=== PATIENT | female | born 1935 | race Caucasian/White ===

== ENCOUNTER 2017-03-18 11:49 | Inpatient (IN) | payer MEDICARE, MEDICAID ==
[2017-03-18] VITALS (10 sets, daily range): BP systolic 108–170; BP diastolic 53–92; PULSE 60–115; RESP 13–36; TEMP 97.6–98.9; O2SAT 87–100
[~2017-03-18] VITALS: Ht 152.4 cm; Wt 61.1 kg
[~2017-03-18 11:49] MED LIST: ALBU0.086 INH; BUDE.5I INH; CALC200S; CALC500T19 PO; CENTRAL VITE; DUONSOL2 NEB; FERR324T4 PO; FURO20TA PO; GLIP5 PO; HYDR-3580 PO; PRIL20CA PO; SIMV10TA OR; TYLE500T PO; Z.0.OXYGEN INH; multivitamins
[2017-03-18] MEDS ORDERED: FUROSEMIDE 100 MG/10 ML VIAL IVP ONE (12:00)
[2017-03-18] MEDS ORDERED: SODIUM CHLORIDE 0.9% FLUSH 10 ML FLUSH IVF PRN (12:00)
--- NOTE | 2017-03-18 12:07 | PD ---
HPI Chief Complaint: Respiratory Distress Time Seen by Provider: 11:58 Travel History International Travel<30 days: No Contact w/Intl Traveler<30days: No Traveled to known affect area: No History of Present Illness HPI This is an 82-year-old female with a history of COPD, CHF, diabetes numbness, hypertension, who presents today with complaint of shortness of breath since yesterday. Patient states that last night she was starting to have shortness of breath however this morning it became much more severe. She denies any chest pain, chest pressure. She reports the shortness of breath has gotten worse despite nebulizer treatments. Niece is at the bedside reports that she was recently being treated for fluid in her lungs. He reports that they changed her Lasix to double the dose at that time. The patient has been intubated 2 times previously. There are no other complaints at the time of my examination. PFSH Past Medical History Arthritis: Yes Asthma: Yes Autoimmune Disease: No Blood Disorders: No Cancer: No Cardiovascular Problems: Yes Congestive Heart Failure: Yes COPD: Yes Cerebrovascular Accident: No Coronary Artery Disease: Yes Dementia: Yes Diabetes: Yes (TYPE II ) Diminished Hearing: No Endocrine: Yes Gastrointestinal Disorders: Yes GERD: Yes Glaucoma: No Genitourinary: No Headaches: No Hepatitis: No Hiatal Hernia: No Immune Disorder: No Implanted Vascular Access Dvce: Yes Kidney Stones: No Musculoskeletal: Yes (OSTEROPOROSIS) Neurologic: No Psychiatric: No Reproductive: No Respiratory: Yes (COPD) Migraines: No Seizures: No Sleep Apnea: No Ulcer: No PNEUMOCCOCAL Vaccine (Year): 1997 ?: Not Menopausal: Yes Past Surgical History Abdominal Surgery: No Appendectomy: No Cardiac Surgery: No Ear Surgery: No Endocrine Surgery: No Eye Surgery: No Genitourinary Surgery: No Gynecologic Surgery: No Joint Replacement: Yes Oral Surgery: No Pacemaker: No Thoracic Surgery: No Other Surgery: Yes (2 HIP REPLACEMENTS 2002) Social History Alcohol Use: No Tobacco Use: No Substance Use: No Allergies-Medications (Allergen,Severity, Reaction): Coded Allergies: cephalexin (Unverified Allergy, Intermediate, Anaphylaxis, 03/18/17) Reported Meds & Prescriptions Reported Meds & Active Scripts Active Reported Potassium Chloride ER (Potassium Chloride) 10 Meq Cap 10 Meq PO DAILY Tylenol (Acetaminophen) 325 Mg Tab 500 Mg PO Q6H PRN Senna Plus 8.6-50 mg (Sennosides-Docusate Sodium) 8.6 Mg-50 Mg Tab Prednisone 5 Mg Tab 5 Mg PO DAILY Ferrous Sulfate 325 Mg (65 Mg Iron) Tablet 325 Mg PO TIDPC Repaglinide 2 Mg Tab 2 Mg PO TIDAC Omeprazole 20 Mg Tab 20 Mg PO DAILY Lasix (Furosemide) 20 Mg Tab 20 Mg PO DAILY Lasix (Furosemide) 40 Mg Tab 40 Mg PO DAILY Symbicort Inh (Budesonide/Formoterol Fumarate) 160-4.5 Mcg/Act Aero 1 Puff INH Q12HR Simvastatin 40 Mg Tab 40 Mg PO HS Glipizide 5 Mg Tab 5 Mg PO DAILY Take 30 minutes before a meal Calcium 500 +D (Calcium Carbonate-Cholecalciferol) 500-400 Mg-Unit Tab 1 Tab PO TID Cts-Mqhnfv-Yikpz (Multivitamin) 1 Each Tablet Review of Systems Except as stated in HPI: all other systems reviewed are Neg General / Constitutional: No: Fever, Chills HENT: No: Headaches, Neck Pain Cardiovascular: Positive: Tachycardia, No: Chest Pain or Discomfort, Palpitations Respiratory: Positive: Shortness of Breath, Wheezing, No: Cough Gastrointestinal: No: Nausea, Vomiting Genitourinary: No: Dysuria, Decreased Urinary Output Musculoskeletal: Positive: Edema, No: Weakness, Pain Neurologic: No: Weakness, Dizziness, Headache Physical Exam Narrative GENERAL: Well-developed well-nourished female in moderate to severe respiratory distress. SKIN: Focused skin assessment warm/dry. HEAD: Atraumatic. Normocephalic. EYES: No scleral icterus. No injection or drainage. ENT: No nasal bleeding or discharge. Mucous membranes pink and moist. NECK: Trachea midline. Supple. CARDIOVASCULAR: Tachycardic with a rate of 109. He goes as high as 120.. No murmur appreciated. RESPIRATORY: Coarse Rales and rhonchi bilaterally. GASTROINTESTINAL: Abdomen soft, non-tender, nondistended. MUSCULOSKELETAL: No obvious deformities. No clubbing. No cyanosis. Trace edema bilateral lower extremities NEUROLOGICAL: Awake and alert. Fragmented speech secondary to shortness of breath. No obvious cranial nerve deficits. Motor grossly within normal limits. Normal speech. PSYCHIATRIC: Appropriate mood and affect; insight and judgment normal. Data Data Last Documented VS Vital Signs Date Time Temp Pulse Resp B/P (MAP) Pulse Ox O2 Delivery O2 Flow Rate FiO2 03/18/17 15:30 98 BiPAP 2.00 30 03/18/17 12:01 03/18/17 11:51 98.9 115 36 Orders Orders Complete Blood Count With Diff (03/18/17 11:58) Comprehensive Metabolic Panel (03/18/17 11:58) B-Type Natriuretic Peptide (03/18/17 11:58) Act Partial Throm Time (Ptt) (03/18/17 11:58) Prothrombin Time / Inr (Pt) (03/18/17 11:58) Ckmb (Isoenzyme) Profile (03/18/17 11:58) Troponin I (03/18/17 11:58) Arterial Blood Gas (Abg) (03/18/17 11:58) Urinalysis - C+S If Indicated (03/18/17 11:58) Influenzae A/B Antigen (03/18/17 11:58) Iv Access Insert/Monitor (03/18/17 11:58) Electrocardiogram (03/18/17 11:58) Ecg Monitoring (03/18/17 11:58) Oximetry (03/18/17 11:58) Oxygen Administration (03/18/17 11:58) Chest, Single Ap (03/18/17 11:58) Sodium Chloride 0.9% Flush (Ns Flush) (03/18/17 12:00) Furosemide Inj (Lasix Inj) (03/18/17 12:00) CKMB (03/18/17 12:10) CKMB% (03/18/17 12:10) Vancomycin Inj (Vancomycin Inj) (03/18/17 14:37) Aztreonam Inj (Azactam Inj) (03/18/17 14:37) Metronidazole 500 Mg Inj (Flagyl 500 Mg (03/18/17 14:37) Blood Culture (03/18/17 14:59) Admit To Inpatient (03/18/17 ) Code Status (03/18/17 15:25) Vital Signs (Adult) ALBERTO.Q1H (03/18/17 15:25) Activity Bed Rest (03/18/17 15:25) Elevate Head Of Bed (03/18/17 15:25) Intake + Output Q4H (03/18/17 15:25) Diet Npo (03/18/17 Dinner) Sodium Chloride 0.9% Flush (Ns Flush) (03/18/17 15:30) Sodium Chloride 0.9% Flush (Ns Flush) (03/18/17 21:00) Acetaminophen (Tylenol) (03/18/17 15:30) Famotidine Inj (Pepcid Inj) (03/18/17 21:00) Famotidine (Pepcid) (03/18/17 21:00) Ondansetron Inj (Zofran Inj) (03/18/17 15:30) Albuterol-Ipratropium Neb (Duoneb Neb) (03/18/17 16:00) Albuterol Neb (Albuterol Neb) (03/18/17 15:30) Complete Blood Count With Diff (03/19/17 04:00) Basic Metabolic Panel (Bmp) (03/19/17 04:00) Magnesium (Mg) (03/19/17 04:00) Phosphorus (Po4) (03/19/17 04:00) Chest, Single Ap (03/19/17 ) Electrocardiogram (03/18/17 15:25) Electrocardiogram (03/18/17 21:25) Power Transformer Repairer / Telemetry ALBERTO.Q8H (03/18/17 15:25) ^ Initiate Protocol (03/18/17 15:25) Instruction (03/18/17 15:25) [facility] [place] Nursing Information (03/18/17 15:30) Chlorhexidine 2% Cloth (Chlorhexidine 2% (03/19/17 04:00) Chlorhexidine 2% Cloth (Chlorhexidine 2% (03/18/17 15:30) Mrsa Pcr Surveillance (03/18/17 15:25) Docusate Sodium-Senna (Divina-Colace) (03/18/17 21:00) Magnesium Hydroxide Liq (Milk Of Magnesi (03/18/17 15:30) Sennosides (Senokot) (03/18/17 15:30) Bisacodyl Supp (Dulcolax Supp) (03/18/17 15:30) Lactulose Liq (Lactulose Liq) (03/18/17 15:30) Inpatient Certification (03/18/17 ) Enoxaparin Inj (Lovenox Inj) (03/18/17 16:00) Us Leg Venous Doppler Bilat (03/18/17 ) Troponin I (03/18/17 18:00) Troponin I (03/19/17 00:00) Methylprednisolone So Succ Inj (Solumedr (03/18/17 16:00) Resp Bipap / Cpap Non Invas Vt (03/18/17 ) Admit Order (Ed Use Only) (03/18/17 15:36) Bedside Glucose ALBERTO.CSUGAR (03/18/17 15:37) Bedside Glucose . DIRECTED (03/18/17 15:37) Blood Glucose Goal (Criteria) (03/18/17 15:37) Hypoglycemia 70 Mg/Dl Or < (03/18/17 15:37) Notify Dr: Other (03/18/17 15:37) Dextrose 50% In Mark (Vial) Inj (D50w (Vi (03/18/17 15:45) Glucagon Inj (Glucagon Inj) (03/18/17 15:45) Insulin Aspart Supplemtl Scale (Novolog (03/18/17 17:00) ^ Medication Admin Instruction (03/18/17 15:37) Notify Dr: Other (03/18/17 15:37) Labs Laboratory Tests Test 03/18/17 11:55 03/18/17 12:10 03/18/17 12:50 03/18/17 13:00 Blood Gas Puncture Site RT RADIAL Blood Gas Patient Temperature 98.6 Blood Gas HCO3 29 mmol/L Blood Gas Base Excess 4.2 mmol/L Blood Gas Oxygen Saturation 96 % Arterial Blood pH 7.39 Arterial Blood Partial Pressure CO2 49 mmHg Arterial Blood Partial Pressure O2 95 mmHG Arterial Blood Oxygen Content 16.7 Vol % Arterial Blood Carboxyhemoglobin 1.3 % Arterial Blood Methemoglobin 0.7 % Blood Gas Hemoglobin 12.4 G/DL Oxygen Delivery Device NASAL CANNULA Blood Gas Liter Flow 2 L/M White Blood Count 19.9 TH/MM3 Red Blood Count 4.01 MIL/MM3 Hemoglobin 12.9 GM/DL Hematocrit 39.5 % Mean Corpuscular Volume 98.7 FL Mean Corpuscular Hemoglobin 32.2 PG Mean Corpuscular Hemoglobin Concent 32.6 % Red Cell Distribution Width 13.7 % Platelet Count 200 TH/MM3 Mean Platelet Volume 8.7 FL Neutrophils (%) (Auto) 92.5 % Lymphocytes (%) (Auto) 2.1 % Monocytes (%) (Auto) 5.2 % Eosinophils (%) (Auto) 0.0 % Basophils (%) (Auto) 0.2 % Neutrophils # (Auto) 18.4 TH/MM3 Lymphocytes # (Auto) 0.4 TH/MM3 Monocytes # (Auto) 1.0 TH/MM3 Eosinophils # (Auto) 0.0 TH/MM3 Basophils # (Auto) 0.0 TH/MM3 CBC Comment AUTO DIFF Differential Total Cells Counted 100 Neutrophils % (Manual) 72 % Band Neutrophils % 24 % Lymphocytes % 2 % Monocytes % 2 % Neutrophils # (Manual) 19.1 TH/MM3 Differential Comment FINAL DIFF MANUAL Platelet Estimate NORMAL Platelet Morphology Comment NORMAL Red Cell Morphology Comment NORMAL Blood Urea Nitrogen 22 MG/DL Creatinine 1.13 MG/DL Random Glucose 279 MG/DL Total Protein 8.0 GM/DL Albumin 3.7 GM/DL Calcium Level 9.7 MG/DL Alkaline Phosphatase 71 U/L Aspartate Amino Transf (AST/SGOT) 27 U/L Alanine Aminotransferase (ALT/SGPT) 24 U/L Total Bilirubin 0.6 MG/DL Sodium Level 134 MEQ/L Potassium Level 5.1 MEQ/L Chloride Level 97 MEQ/L Carbon Dioxide Level 29.9 MEQ/L Anion Gap 7 MEQ/L Estimat Glomerular Filtration Rate 46 ML/MIN Total Creatine Kinase 124 U/L Creatine Kinase MB 1.3 NG/ML Troponin I 0.02 NG/ML B-Type Natriuretic Peptide 47 PG/ML Urine Color LIGHT-YELLOW Urine Turbidity CLEAR Urine pH 6.5 Urine Specific Gilson 1.007 Urine Protein NEG mg/dL Urine Glucose (UA) 300 mg/dL Urine Ketones NEG mg/dL Urine Occult Blood NEG Urine Nitrite NEG Urine Bilirubin NEG Urine Urobilinogen LESS THAN 2.0 MG/DL Urine Leukocyte Esterase NEG Urine RBC LESS THAN 1 /hpf Urine WBC 1 /hpf Urine Squamous Epithelial Cells 1 /hpf Urine Bacteria OCC /hpf Urine Hyaline Casts 1 /lpf Urine Mucus FEW /lpf Microscopic Urinalysis Comment CULT NOT INDICATED MDM Medical Decision Making Medical Screen Exam Complete: Yes Emergency Medical Condition: Yes Differential Diagnosis CHF exacerbation versus COPD exacerbation versus ACS Narrative Course This is an 82-year-old female history of COPD, CHF, diabetes nose, presents here today with shortness of breath is progressively worse. The patient recently had fluid on her lungs and was placed on Lasix. She also had her Lasix doubled. Patient has gurgling lung sounds with coarse rhonchi and Rales bilaterally. The patient's O2 sat on room air was in the 80s. She was started on CPAP here in the emergency department. She was also given 60 mg of Lasix. She is put out 2 large urine episodes. The patient appears very frail and tachypnea area and she was noted to have a white blood cell count of 19,000. She's been started on the unknown source of sepsis antibiotics. She'll be admitted to the intensive care unit. The case was discussed with Dr. Jama, who is gracious enough to come down and see the patient and written admission orders. Critical Care Narrative Aggregate critical care time was 45 minutes. Time to perform other separately billable procedures was not included in the critical care time. My time did not include minutes spent treating any other patients simultaneously or on activities that did not directly contribute to the patient's treatment. The services I provided to this patient were to treat and/or prevent clinically significant deterioration that could result in: I provided critical care services requiring my management, as noted below: Chart data review, documentation time, medication orders and management, vital sign assessments/reviewing monitor data, ordering and reviewing lab tests, ordering and interpreting/reviewing x-rays and diagnostic studies, care of the patient and discussion of the patient with the admitting physicians. Sepsis Criteria SIRS Criteria (2 or more): Heart rate over 90, RR > 20 or PaCO2 < 32, WBC > 06720, < 4000 or > 10% bands Sepsis Criteria (SIRS+source): Infect source susp/known Diagnosis Primary Impression: Respiratory distress Additional Impressions: CHF (congestive heart failure) COPD (chronic obstructive pulmonary disease) Pneumonia Leukocytosis Sepsis Admitting Information Admitting Physician Requests: Admit Bg Aragon MD Mar 18, 2017 12:07
[2017-03-18] MEDS ORDERED: SENN1TAB (12:31)
[2017-03-18] MEDS ORDERED: MULTTAB68 (12:31)
[2017-03-18] MEDS ORDERED: REPA1TAB10 PO (12:31)
[2017-03-18] MEDS ORDERED: FURO1TAB62 PO (12:31)
[2017-03-18] MEDS ORDERED: POTA10CA PO (12:31)
[2017-03-18] MEDS ORDERED: OMEP20TA93 PO (12:31)
[2017-03-18] MEDS ORDERED: SYMB160A INH (12:31)
[2017-03-18] MEDS ORDERED: FERR325T18 PO (12:31)
[2017-03-18] MEDS ORDERED: TYLE325T PO (12:31)
[2017-03-18] MEDS ORDERED: GLIP5TAB8 PO (12:31)
[2017-03-18] MEDS ORDERED: FURO1TAB60 PO (12:31)
[2017-03-18] MEDS ORDERED: SIMV40TA PO (12:31)
[2017-03-18] MEDS ORDERED: PRED5TAB PO (12:31)
[2017-03-18] MEDS ORDERED: CALC1TAB12 PO (12:31)
[2017-03-18 12:35] LABS: AUTOMATED NEUTROPHIL # 18.4 TH/MM3 (1.8-7.7); BASOPHIL % 0.2 % (0.0-2.0); HEMATOCRIT 39.5 % (35.0-46.0); HEMOGLOBIN 12.9 GM/DL (11.6-15.3); LYMPH % 2.1 % (9.0-44.0); LYMPHOCYTE # 0.4 TH/MM3 (1.0-4.8); MEAN CELL VOLUME 98.7 FL (80.0-100.0); MEAN CORPUSCULAR HEMOGLOBIN 32.2 PG (27.0-34.0); MEAN CORPUSCULAR HGB CONC 32.6 % (32.0-36.0); MEAN PLATELET VOLUME 8.7 FL (7.0-11.0); MONO % 5.2 % (0.0-8.0); NEUT % 92.5 % (16.0-70.0); PLATELET COUNT 200 TH/MM3 (150-450); RED BLOOD COUNT 4.01 MIL/MM3 (4.00-5.30); RED CELL DISTRIBUTION WIDTH 13.7 % (11.6-17.2); WHITE BLOOD COUNT 19.9 TH/MM3 (4.0-11.0)
[2017-03-18 12:53] LABS: ALBUMIN 3.7 GM/DL (3.4-5.0); AST (GOT) 27 U/L (15-37); BICARBONATE 29.9 MEQ/L (21.0-32.0); BLOOD UREA NITROGEN 22 MG/DL (7-18); CALCIUM 9.7 MG/DL (8.5-10.1); CHLORIDE 97 MEQ/L (98-107); CREATININE 1.13 MG/DL (0.50-1.00); GLOMERULAR FILTRATION RATE 46 ML/MIN (>89); GLUCOSE,RANDOM 279 MG/DL (74-106); SODIUM (NA) 134 MEQ/L (136-145)
[2017-03-18 12:55] LABS: ALKALINE PHOSPHATASE 71 U/L (45-117); ALT (GPT) 24 U/L (10-53); TOTAL BILIRUBIN ADULT 0.6 MG/DL (0.2-1.0); TROPONIN I 0.02 NG/ML (0.02-0.05)
[2017-03-18 13:03] LABS: BANDS 24 % (0-6); LYMPHOCYTES 2 % (9-44); MONOCYTES 2 % (0-8); NEUTROPHIL # MANUAL DIFF 19.1 TH/MM3 (1.8-7.7); POLYS (SEG NEUTROPHILS) 72 % (16-70)
--- NOTE | 2017-03-18 13:06 | RADRPT ---
EXAM DATE/TIME: 03/18/2017 12:12 [facility] COMPARISON: CHEST SINGLE AP, June 15, 2014, 1:14. INDICATIONS : Shortness of breath. MEDICAL HISTORY : Chronic obstructive pulmonary disease. Congestive heart failure. Gastroesophageal reflux disease. Diabetes. Asthma. SURGICAL HISTORY : Bilateral hip replacements. ENCOUNTER: Initial ACUITY: 2 days PAIN SCORE: Non-responsive. LOCATION: Bilateral chest FINDINGS: The heart size is normal. There is increased density in the perihilar regions. There is also increase d density at the medial left base. These findings were present on a prior chest x-ray from 2014. No e ffusion is seen. This chronic change at the right humeral head and shoulder region. CONCLUSION: No definite acute abnormality is seen. The persistent prominent perihilar densities and density in th e medial left base. Bhavesh Goldberg MD on March 18, 2017 at 13:03 Board Certified Radiologist. This report was verified electronically.
[2017-03-18 13:41] LABS: BACTERIA, URINE OCC /hpf; BILIRUBIN, URINE NEG (NEG); BLOOD, URINE NEG (NEG); GLUCOSE,URINE 300 mg/dL (NEG); HYALINE CAST, URINE 1 /lpf (RARE); KETONE, URINE NEG (NEG); MUCUS URINE FEW /lpf (OCC); NITRITE,URINE NEG (NEG); PH, URINE 6.5 (5.0-8.5); SQUAMOUS EPITHELIAL CELL URINE 1 /hpf (0-5); URINE COLOR LIGHT-YELLOW (YELLW/STRAW); URINE LEUKOCYTE ESTERASE NEG (NEG)
[2017-03-18] MEDS ORDERED: AZTREONAM INJ 2,000 MG in SODIUM CHLORIDE 0.9% INJ 100 ML IV STA (14:37)
[2017-03-18] MEDS ORDERED: metroNIDAZOLE 500 MG INJ 100 ML IV STA (14:37)
[2017-03-18] MEDS ORDERED: VANCOMYCIN INJ 1,000 MG in SODIUM CHLOR 0.9% 250 ML INJ 250 ML IV STA (14:37)
--- NOTE | 2017-03-18 15:26 | HHI.HP ---
[facility] Service Critical Care Medicine Primary Care Physician Chaitanya Cardenas MD Admission Diagnosis Diagnosis: Travel History International Travel<30 Days: No Contact w/Intl Traveler <30 Da: No Traveled to Known Affected Are: No History of Present Illness Date of admission 03/18/17 82-year-old [place] female with past medical history of COPD on chronic prednisone 5 mg daily, CHF, diabetes, hyperlipidemia, iron deficiency anemia. She has resided in an NURSING HOME for 20 years. She presents to [facility] emergency department due to shortness of breath that initially started the evening of 03/16. When her niece came to visit her today her breathing had worsened and EVAC was called. Sats were in the mid 80s on room air upon E VAC arrival. She had bilateral Rales and wheezing on arrival and was given Lasix 60 mg IV and placed on BiPAP 10/5 50% per the ED physician. She was also administered aztreonam, vancomycin, Flagyl. She has voided twice in the ED and put out 600 mL. She has had a nonproductive cough. She denies fever. She was not febrile on arrival. Denies chest pain. Her white blood cell count is 19. Chest x-ray shows some perihilar infiltrates. These have been present in the past on x-ray in 2015. She had some respiratory issues around and has been on increased Lasix dosing since then per Dr. Cardenas. Her creatinine is increased to 1.13 compared with her prior baseline of 0.8 from 2015. Her BNP is 47. Patient states her bowel movements have been normal. She has some redness of her left lower extremity and has been treated for cellulitis there in the past but states this is improved compared to usual. .Her niece states she has been intubated in the past on 2 occasions and the last intubation resulted in prolonged weaning. Patient states she is agreeable to intubation if needed. Her niece is reportedly her healthcare surrogate. She has no recent travel, recent surgeries, history of venous thromboembolic disease or known malignancy. Review of Systems Constitutional: DENIES: Diaphoretic episodes, Fever, Weight loss Respiratory: COMPLAINS OF: Cough, Wheezing, Shortness of breath, DENIES: Sputum production Cardiovascular: DENIES: Syncope Gastrointestinal: DENIES: Abdominal pain, Bloody stools, Constipation, Diarrhea , Nausea, Vomiting Musculoskeletal: COMPLAINS OF: Joint pain, Stiffness Immunologic/allergic: DENIES: Eczema Past Family Social History Allergies: Coded Allergies: cephalexin (Unverified Allergy, Intermediate, Anaphylaxis, 03/18/17) Past Medical History Intellectual disability CHF diagnosed in 2007 Negative cath in 2010 COPD Diabetes Hypertension Hyperlipidemia Iron deficiency anemia Obesity GERD On chronic steroids per Dr. Kasper with pulmonology Intubated twice in the past. One of these episodes was in May 2010. Past Surgical History I&D and ORIF open right distal humerus fracture 06/16/14 (Dr. Carter Jimenez) I&D open right distal humerus fracture 06/15/14 Dr. Smith Left total hip arthroplasty 08/19/2003 Dr. Wilder Right total hip arthroplasty 04/29/2003 Dr. Aponte Cement spacers L2 and L5 following L2 and L4 fracture Dr. Wilder Left elbow I&D 06/15/14 Cardiac catheterization 06/03/10normal coronariesby Dr. Shawna Corona Bilateral cataract surgery Reported Medications Ferrous sulfate 325 mill grams by mouth 3 times a day Simvastatin 40 g by mouth daily at bedtime Acetaminophen 500 mg by mouth every 6 hours as needed for pain Calcium carbonate I've 100 mg by mouth 3 times a day Potassium chloride 10 mEq by mouth daily Lasix 40 mg by mouth / 20 mg by mouth Symbicort 160/4.51 puff inhaled every 12 hours Senna/Docusate Omeprazole 20 mill grams by mouth daily Prednisone 5 mill grams by mouth daily REpaglinide 2 mg by mouth 3 times a day Glipizide 5 mill grams by mouth daily Multivitamin daily Family History Mother of myocardial infarction in her 70s Father of myocardial infarction his 70s Social History Lifetime nonsmoker. 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 SKIN: Warm and dry, well perfused. See extremity exam as per below. HEAD: Atraumatic. Normocephalic. EYES: Right pupil 6 mm, irregular and nonreactive. Left pupil 4 mm reactive.. No scleral icterus. No injection or drainage. ENT: BiPAP mask in place. NECK: Trachea midline. No JVD. CARDIOVASCULAR: Tachycardic, regular, no murmurs rubs or gallops. RESPIRATORY: Rales present in right base. Bilateral expiratory wheezes throughout GASTROINTESTINAL: Abdomen soft, non-tender, nondistended. Bowel sounds present. MUSCULOSKELETAL: Extremities without clubbing, cyanosis. 1+ edema of feet and lower extremities. No posterior leg tenderness, negative Homans. There is some redness of distal right leg but reportedly this is relatively chronic and better than usual. Deformities fingers bilat. NEUROLOGICAL: Awake and alert. No obvious cranial nerve deficits. Moves all extremities equally and to command Laboratory Laboratory Tests Test 03/18/17 11:55 03/18/17 12:10 03/18/17 12:50 03/18/17 13:00 Blood Gas Puncture Site RT RADIAL Blood Gas Patient Temperature 98.6 Blood Gas HCO3 29 Blood Gas Base Excess 4.2 Blood Gas Oxygen Saturation 96 Arterial Blood pH 7.39 Arterial Blood Partial Pressure CO2 49 Arterial Blood Partial Pressure O2 95 Arterial Blood Oxygen Content 16.7 Arterial Blood Carboxyhemoglobin 1.3 Arterial Blood Methemoglobin 0.7 Blood Gas Hemoglobin 12.4 Oxygen Delivery Device NASAL CANNULA Blood Gas Liter Flow 2 White Blood Count 19.9 Red Blood Count 4.01 Hemoglobin 12.9 Hematocrit 39.5 Mean Corpuscular Volume 98.7 Mean Corpuscular Hemoglobin 32.2 Mean Corpuscular Hemoglobin Concent 32.6 Red Cell Distribution Width 13.7 Platelet Count 200 Mean Platelet Volume 8.7 Neutrophils (%) (Auto) 92.5 Lymphocytes (%) (Auto) 2.1 Monocytes (%) (Auto) 5.2 Eosinophils (%) (Auto) 0.0 Basophils (%) (Auto) 0.2 Neutrophils # (Auto) 18.4 Lymphocytes # (Auto) 0.4 Monocytes # (Auto) 1.0 Eosinophils # (Auto) 0.0 Basophils # (Auto) 0.0 CBC Comment AUTO DIFF Differential Total Cells Counted 100 Neutrophils % (Manual) 72 Band Neutrophils % 24 Lymphocytes % 2 Monocytes % 2 Neutrophils # (Manual) 19.1 Differential Comment FINAL DIFF MANUAL Platelet Estimate NORMAL Platelet Morphology Comment NORMAL Red Cell Morphology Comment NORMAL Blood Urea Nitrogen 22 Creatinine 1.13 Random Glucose 279 Total Protein 8.0 Albumin 3.7 Calcium Level 9.7 Alkaline Phosphatase 71 Aspartate Amino Transf (AST/SGOT) 27 Alanine Aminotransferase (ALT/SGPT) 24 Total Bilirubin 0.6 Sodium Level 134 Potassium Level 5.1 Chloride Level 97 Carbon Dioxide Level 29.9 Anion Gap 7 Estimat Glomerular Filtration Rate 46 Total Creatine Kinase 124 Creatine Kinase MB 1.3 Troponin I 0.02 B-Type Natriuretic Peptide 47 Urine Color LIGHT-YELLOW Urine Turbidity CLEAR Urine pH 6.5 Urine Specific [place] 1.007 Urine Protein NEG Urine Glucose (UA) 300 Urine Ketones NEG Urine Occult Blood NEG Urine Nitrite NEG Urine Bilirubin NEG Urine Urobilinogen LESS THAN 2.0 Urine Leukocyte Esterase NEG Urine RBC LESS THAN 1 Urine WBC 1 Urine Squamous Epithelial Cells 1 Urine Bacteria OCC Urine Hyaline Casts 1 Urine Mucus FEW Microscopic Urinalysis Comment CULT NOT INDICATED Date/Time Source Procedure Growth Status 03/18/17 12:15 Nasal Aspirate Influenza Types A,B Antigen (SILVER) - Final NEGATIVE FOR FLU A AND B ANTIGEN.... Complete Result Diagram: 03/18/17 1210 03/18/17 1210 Septic Shock Reassessment Septic shock perfusion: reassessment completed Caprini VTE Risk Assessment Caprini VTE Risk Assessment: Mod/High Risk (score >= 2) Caprini Risk Assessment Model Point Value = 1 Point Value = 2 Point Value = 3 Point Value = 5 Age 41-60 Minor surgery BMI > 25 kg/m2 Swollen legs Varicose veins or History of unexplained or recurrent spontaneous Oral contraceptives or hormone replacement Sepsis (< 1 month) Serious lung disease, including pneumonia (< 1 month) Abnormal pulmonary function Acute myocardial infarction Congestive heart failure (< 1 month) History of inflammatory bowel disease Medical patient at bed rest Age 61-74 Arthroscopic surgery Major open surgery (> 45 min) Laparoscopic surgery (> 45 min) Malignancy Confined to bed (> 72 hours) Immobilizing plaster cast Central venous access Age >= 75 History of VTE Family history of VTE Factor V Leiden Prothrombin [id number] Lupus anticoagulant Anticardiolipin antibodies Elevated serum homocysteine Heparin-induced thrombocytopenia Other congenital or acquired thrombophilia Stroke (< 1 month) Elective arthroplasty Hip, pelvis, or leg fracture Acute spinal cord injury (< 1 month) Prophylaxis Regimen Total Risk Factor Score Risk Level Prophylaxis Regimen 0-1 Low Early ambulation 2 Moderate Order ONE of the following: *Sequential Compression Device (SCD) *Heparin 5000 units SQ BID 3-4 Higher Order ONE of the following medications: *Heparin 5000 units SQ TID *Enoxaparin/Lovenox 40 mg SQ daily (WT < 150 kg, CrCl > 30 mL/min) *Enoxaparin/Lovenox 30 mg SQ daily (WT < 150 kg, CrCl > 10-29 mL/min) *Enoxaparin/Lovenox 30 mg SQ BID (WT < 150 kg, CrCl > 30 mL/min) AND/OR *Sequential Compression Device (SCD) 5 or more Highest Order ONE of the following medications: *Heparin 5000 units SQ TID (Preferred with Epidurals) *Enoxaparin/Lovenox 40 mg SQ daily (WT < 150 kg, CrCl > 30 mL/min) *Enoxaparin/Lovenox 30 mg SQ daily (WT < 150 kg, CrCl > 10-29 mL/min) *Enoxaparin/Lovenox 30 mg SQ BID (WT < 150 kg, CrCl > 30 mL/min) AND *Sequential Compression Device (SCD) Assessment and Plan Problem List: (1) Acute respiratory failure with hypoxia and hypercapnia ICD Code: J96.01 - Acute respiratory failure with hypoxia; J96.02 - Acute respiratory failure with hypercapnia Status: Acute (2) Acute exacerbation of chronic obstructive pulmonary disease ICD Code: J44.1 - Chronic obstructive pulmonary disease with (acute) exacerbation Status: Acute (3) Sepsis ICD Code: A41.9 - Sepsis, unspecified organism Status: Acute (4) DM (diabetes mellitus) ICD Code: E11.9 - DM (diabetes mellitus) Status: Chronic (5) HTN (hypertension) ICD Code: I10 - HTN (hypertension) Status: Chronic (6) HLD (hyperlipidemia) ICD Code: E78.5 - Hyperlipidemia, unspecified Status: Chronic (7) IVCD (intraventricular conduction defect) ICD Code: I45.4 - Nonspecific intraventricular block Status: Chronic Assessment and Plan NEURO: Intellectual disability Resides in NURSING HOME at baseline. PT to evaluate when respiratory status improves. RESP: Acute hypoxemic respiratory failure on BiPAP Acute COPD exacerbation DuoNeb every 4 hours. Albuterol every 2 hours as needed. Solu-Medrol 60 mg IV every 6 hours. Bipap 10/5 and wean as tolerated. Hold prednisone 5 mg by mouth daily which she is on for pulmonary Symbicort 160/4.51 puff inhaled every 12 hours Patient is known to Dr. Kasper Received Lasix 40 mg IV in the emergency department Antibiotics as per below CV: History of CHF Intraventricular conduction delay Hyperlipidemia Patient denies chest pain. Cardiac markers negative , will trend CHF appears compensated with BNP of 47 and without significant pulmonary edema Continue statin, pravastatin 40 mEq by mouth daily at bedtime Negative cardiac cath in 2010 GI: GERD Nothing by mouth until respirations status improves. PPI for stress ulcer prophylaxis and history of GERD FEN/RENAL: Voiding. Monitor intake and output. Monitor electrolytes and replace as indicated Potassium is upper end of normal and she has been on potassium supplementation which is being held. ID: Sepsis Healthcare associated pneumonia present on admission Leukocytosis cough with Chest x-ray with perihilar infiltrate - may be chronic Received Aztreonam, Flagyl, vancomycin in the emergency department. creatinine clearance 37 on 03/18. Continue aztreonam 2 g IV every 8 hours. Levaquin 750 mg IV every 48 hours Influenza -03/18/17 negative Send blood cultures now Obtain U/a - negative HEME: Iron deficiency anemia Ferrous sulfate 325 mill grams by mouth 3 times a day Coags pending Obtain bilateral lower extremity ultrasound. ENDO: Diabetes mellitus Hold glipizide and repaglinide. Medium dose insulin sliding scale ac/hs PROPH: Lovenox 30 mg subcutaneous daily for DVT prophylaxis. Protonix 40 mg by mouth daily for stress ulcer prophylaxis and history of GERD ACCESS: Peripheral IV providing adequate access at this time. Level III H&P Madison Jama MD Mar 18, 2017 15:26
[2017-03-18] MEDS ORDERED: BISACODYL 10 MG SUPP RECTAL PRN (15:30)
[2017-03-18] MEDS ORDERED: CHLORHEXIDINE GLUCONATE 2 % 1 PACK (2 CLOTHS) TOP PRN (15:30)
[2017-03-18] MEDS ORDERED: SENNOSIDES 8.6 MG TAB PO PRN (15:30)
[2017-03-18] MEDS ORDERED: MAGNESIUM HYDROXIDE SUSP 30 ML CUP PO PRN (15:30)
[2017-03-18] MEDS ORDERED: SODIUM CHLORIDE 0.9% FLUSH 10 ML FLUSH IV FLUSH PRN (15:30)
[2017-03-18] MEDS ORDERED: LACTULOSE SYRUP 20 GM/30 ML CUP PO PRN (15:30)
[2017-03-18] MEDS ORDERED: RESP: ALBUTEROL 2.5 MG/3 ML NEB (PRN) INH (15:30)
[2017-03-18] MEDS ORDERED: MISCELLANEOUS NURSING INFORMATION XX SCH (15:30)
[2017-03-18] MEDS ORDERED: ONDANSETRON HCL 4 MG/2 ML VIAL IV PUSH PRN (15:30)
[2017-03-18] MEDS ORDERED: ACETAMINOPHEN 325 MG TAB PO PRN (15:30)
[2017-03-18] MEDS ORDERED: DEXTROSE 50% IN WATER 50 ML VIAL(D50) IV PUSH PRN (15:45)
[2017-03-18] MEDS ORDERED: GLUCAGON 1 MG/ML VIAL OTHER PRN (15:45)
[2017-03-18] MEDS: RESP: ALBUTEROL 2.5 MG/IPRATROPIUM 0.5 MG NEB (SCH) INH ×2 (16:25→20:29)
[2017-03-18] MEDS: methylPREDNISolone SOD SUCC 125 MG/2 ML VIAL IV PUSH SCH ×2 (16:41→21:49)
--- NOTE | 2017-03-18 16:43 | RADRPT ---
EXAM DATE/TIME: 03/18/2017 15:40 [facility] COMPARISON: No previous studies available for comparison. INDICATIONS : Bilateral leg swelling. MEDICAL HISTORY : Congestive heart failure. Chronic obstructive pulmonary disease. Gastroesophageal reflux disease. Gla sses. Dentures. Dementia. Coronary artery disease. Asthma. Dyspnea. Arthritis. Osteoporosis. Diabetes . SURGICAL HISTORY : Bilateral hip replacements. ENCOUNTER: Initial ACUITY: 1 day PAIN SCORE: 2/10 LOCATION: Bilateral legs. TECHNIQUE: Venous ultrasound of the left and right leg was performed from the inguinal ligament to the proximal calf. Real-time, color Doppler and spectral tracing, compression and augmentation techniques were us ed. FINDINGS: RIGHT LEG: There is normal compressibility of the deep venous system from the inguinal region to the proximal ca lf. No echogenic clot is seen in the lumen of the common femoral, femoral, popliteal, and posterior tibial veins. There is a normal response of the venous system to proximal and distal augmentation an d respiration. LEFT LEG: There is normal compressibility of the deep venous system from the inguinal region to the proximal ca lf. No echogenic clot is seen in the lumen of the common femoral, femoral, popliteal, and posterior tibial veins. There is a normal response of the venous system to proximal and distal augmentation an d respiration. CONCLUSION: Normal examination. Radames Piper MD on March 18, 2017 at 16:40 Board Certified Radiologist. This report was verified electronically.
[2017-03-18] MEDS: LEVOFLOXACIN 750 MG PREMIX INJ 150 ML IV SCH ×2 (17:00→22:40)
[2017-03-18] MEDS: INSULIN ASPART SUPPLEMENTAL SCALE SQ SCH ×2 (17:00→21:00)
[2017-03-18] MEDS: ENOXAPARIN SODIUM 30 MG/0.3 ML SYRINGE SQ SCH (17:45)
[2017-03-18] MEDS ORDERED: NON-FORMULARY DRUG (Calcium Carbonate-Cholecalciferol (Calcium 500 +D) 1 TAB) PO SCH (18:00)
[2017-03-18] MEDS: CALCIUM/VITAMIN D 250 MG/125 U TAB PO SCH (18:00)
[2017-03-18] MEDS: FERROUS SULFATE 325 MG (65 MG ELEMENTAL IRON) TAB PO SCH (18:30)
[2017-03-18 20:05] LABS: INTERNATIONAL NORMALIZED RATIO 1.1 RATIO; PROTHROMBIN TIME - PATIENT 11.6 SEC (9.8-11.6)
[2017-03-18] MEDS ORDERED: NON-FORMULARY DRUG (Simvastatin 40 MG) PO SCH (21:00)
[2017-03-18] MEDS ORDERED: FAMOTIDINE 20 MG/2 ML VIAL IV PUSH SCH (21:00)
[2017-03-18] MEDS: BUDESONIDE-FORMOTEROL 160/4.5 MCG INHALER INH SCH (21:00)
[2017-03-18] MEDS ORDERED: FAMOTIDINE 20 MG TAB PO SCH (21:00)
[2017-03-18] MEDS: PRAVASTATIN SOD 80 MG TAB PO SCH (21:00)
[2017-03-18] MEDS: DOCUSATE SODIUM 50 MG/SENNA 8.6 MG TAB PO SCH (21:00)
[2017-03-18] MEDS: SODIUM CHLORIDE 0.9% FLUSH 10 ML FLUSH IV FLUSH SCH (21:50)
--- NOTE | 2017-03-18 22:17 | EKG ---
Date Performed: 03/18/2017 Time Performed: 12:00:02 PTAGE: 82 years EKG: SINUS TACHYCARDIA WITH SHORT AL INTERVAL POSSIBLE LEFT ATRIAL ENLARGEMENT INDETERMINATE AXI S RIGHT BUNDLE BRANCH BLOCK ABNORMAL ECG INTERPRETATION BASED ON A DEFAULT AGE OF 40 YEARS PREVIOUS TRACING : 06/15/2014 01.31 Compared to the previous tracing, now with sinus tach ycardia and RBBB DOCTOR: Kyle Davison Interpretating Date/Time 03/18/2017 22:16:53
[2017-03-19] VITALS (16 sets, daily range): BP systolic 110–135; BP diastolic 51–71; PULSE 70–97; RESP 18–25; TEMP 97.6–98.6; O2SAT 95–99
[2017-03-19] MEDS: RESP: ALBUTEROL 2.5 MG/IPRATROPIUM 0.5 MG NEB (SCH) INH ×6 (00:25→20:18)
[2017-03-19] MEDS ORDERED: AZTREONAM INJ 2,000 MG in SODIUM CHLORIDE 0.9% INJ 100 ML IV SCH (01:00)
[2017-03-19] MEDS: AZTREONAM INJ 1,000 MG in SODIUM CHLORIDE 0.9% INJ 100 ML IV SCH ×3 (01:00→16:59)
[2017-03-19] MEDS: CHLORHEXIDINE GLUCONATE 2 % 1 PACK (2 CLOTHS) TOP SCH (04:00)
[2017-03-19] MEDS: methylPREDNISolone SOD SUCC 125 MG/2 ML VIAL IV PUSH SCH ×4 (04:00→21:55)
--- NOTE | 2017-03-19 04:04 | RADRPT ---
EXAM DATE/TIME: 03/19/2017 03:26 [facility] COMPARISON: CHEST SINGLE AP, March 18, 2017, 12:12. INDICATIONS : Shortness of breath, possible pulmonary disease. MEDICAL HISTORY : Chronic obstructive pulmonary disease. Congestive heart failure. Gastroesophageal reflux disease. Diabetes Asthma SURGICAL HISTORY : Bilateral hip replacements ENCOUNTER: Subsequent ACUITY: 3 days PAIN SCORE: 0/10 LOCATION: Bilateral chest FINDINGS: Patchy consolidation again seen in both mid and lower lungs without significant change. No large effu alvaro. No pneumothorax. Heart size stable within normal limits. CONCLUSION: Patchy bilateral mid and basilar consolidation not significantly changed. Bhavesh Cardona MD on March 19, 2017 at 4:01 Board Certified Radiologist. This report was verified electronically.
[2017-03-19 06:32] LABS: AUTOMATED NEUTROPHIL # 14.5 TH/MM3 (1.8-7.7); BASOPHIL # 0.1 TH/MM3 (0-0.2); BASOPHIL % 0.4 % (0.0-2.0); HEMOGLOBIN 12.3 GM/DL (11.6-15.3); LYMPHOCYTE # 0.3 TH/MM3 (1.0-4.8); MEAN CELL VOLUME 98.8 FL (80.0-100.0); MEAN CORPUSCULAR HEMOGLOBIN 32.8 PG (27.0-34.0); MEAN CORPUSCULAR HGB CONC 33.2 % (32.0-36.0); MEAN PLATELET VOLUME 8.6 FL (7.0-11.0); MONO % 1.3 % (0.0-8.0); MONOCYTE # 0.2 TH/MM3 (0-0.9); NEUT % 96.3 % (16.0-70.0); PLATELET COUNT 187 TH/MM3 (150-450); RED BLOOD COUNT 3.74 MIL/MM3 (4.00-5.30); RED CELL DISTRIBUTION WIDTH 13.4 % (11.6-17.2)
[2017-03-19 06:53] LABS: BICARBONATE 31.4 MEQ/L (21.0-32.0); CALCIUM 9.3 MG/DL (8.5-10.1); CREATININE 1.1 MG/DL (0.50-1.00); PHOSPHORUS 2.7 MG/DL (2.5-4.9)
[2017-03-19] MEDS: INSULIN ASPART SUPPLEMENTAL SCALE SQ SCH ×4 (07:51→20:55)
[2017-03-19 08:38] LABS: BANDS 21 % (0-6); LYMPHOCYTES 2 % (9-44); MONOCYTES 2 % (0-8); NEUTROPHIL # MANUAL DIFF 14.4 TH/MM3 (1.8-7.7); POLYS (SEG NEUTROPHILS) 75 % (16-70)
[2017-03-19] MEDS: BUDESONIDE-FORMOTEROL 160/4.5 MCG INHALER INH SCH (08:38)
[2017-03-19] MEDS: FERROUS SULFATE 325 MG (65 MG ELEMENTAL IRON) TAB PO SCH ×3 (08:38→18:38)
[2017-03-19] MEDS: CALCIUM/VITAMIN D 250 MG/125 U TAB PO SCH ×3 (08:38→18:39)
[2017-03-19] MEDS: SODIUM CHLORIDE 0.9% FLUSH 10 ML FLUSH IV FLUSH SCH ×2 (08:38→20:56)
[2017-03-19] MEDS: DOCUSATE SODIUM 50 MG/SENNA 8.6 MG TAB PO SCH ×2 (08:38→20:56)
[2017-03-19] MEDS: PANTOPRAZOLE SOD 40 MG DELAYED RELEASE TAB PO SCH (08:39)
--- NOTE | 2017-03-19 13:21 | EKG ---
Date Performed: 03/18/2017 Time Performed: 22:06:38 PTAGE: 82 years EKG: Sinus rhythm Rightward axis Right bundle branch block Abnormal ECG PREVIOUS TRACING : 03/18/2017 12.00 Compared to the previous tracing, rate has decreased DOCTOR: Kyle Davison Interpretating Date/Time 03/19/2017 13:19:27
--- NOTE | 2017-03-19 15:17 | HHI.CCPN ---
Subjective Remarks/Hospital Course 82-year-old Sinhala [place]ian female with past medical history of COPD on chronic prednisone 5 mg daily, CHF, diabetes, hyperlipidemia, iron deficiency anemia. She has resided in an [facility] for 20 years. She presents to [facility] emergency department due to shortness of breath that initially started the evening of 03/16. When her niece came to visit her today her breathing had worsened and EVAC was called. Sats were in the mid 80s on room air upon E VAC arrival. She had bilateral Rales and wheezing on arrival and was given Lasix 60 mg IV and placed on BiPAP 10/5 50% per the ED physician. She was also administered aztreonam, vancomycin, Flagyl. She has voided twice in the ED and put out 600 mL. She has had a nonproductive cough. She denies fever. She was not febrile on arrival. Denies chest pain. Her white blood cell count is 19. Chest x-ray shows some perihilar infiltrates. These have been present in the past on x-ray in 2015. She had some respiratory issues around and has been on increased Lasix dosing since then per Dr. Cardenas. Her creatinine is increased to 1.13 compared with her prior baseline of 0.8 from 2015. Her BNP is 47. Patient states her bowel movements have been normal. She has some redness of her left lower extremity and has been treated for cellulitis there in the past but states this is improved compared to usual. .Her niece states she has been intubated in the past on 2 occasions and the last intubation resulted in prolonged weaning. Patient states she is agreeable to intubation if needed. Her niece is reportedly her healthcare surrogate. She has no recent travel, recent surgeries, history of venous thromboembolic disease or known malignancy. Subjective: 03/19 Went back on BiPAP overnight. Was on 4 L nasal cannula this morning. She ate. She requested to go back on to BiPAP around noon. WBC down to 15. Expiratory wheezes persist bilaterally but she appears comfortable on Bipap Objective Vital Signs Date Time Temp Pulse Resp B/P (MAP) Pulse Ox O2 Delivery O2 Flow Rate FiO2 03/19/17 12:47 96 30 03/19/17 11:00 94 03/19/17 11:00 Nasal Cannula 4.50 03/19/17 11:00 97.7 24 135/62 (86) Intake and Output 03/19/17 03/19/17 03/20/17 08:00 16:00 00:00 Intake Total 250 ml Output Total 250 ml Balance 0 ml Result Diagram: 03/19/17 0529 03/19/17 0529 Other Results Microbiology Date/Time Source Procedure Growth Status 03/18/17 12:15 Nasal Aspirate Influenza Types A,B Antigen (SILVER) - Final NEGATIVE FOR FLU A AND B ANTIGEN.... Complete Objective Remarks GENERAL: Well-nourished, well-developed patient who is sitting up in bed on BiPAP. SKIN: Warm and dry, well perfused. See extremity exam as per below. HEAD: Atraumatic. Normocephalic. EYES: Right pupil 6 mm, irregular and nonreactive. Left pupil 4 mm reactive.. No scleral icterus. No injection or drainage. ENT: BiPAP mask in place. NECK: Trachea midline. No JVD. CARDIOVASCULAR: Tachycardic, regular, no murmurs rubs or gallops. RESPIRATORY: . Bilateral expiratory wheezes throughout. No rales or rhonchi. Comfortable on BiPAP without accessory muscle use 10/5 30% GASTROINTESTINAL: Abdomen soft, non-tender, nondistended. Bowel sounds present. MUSCULOSKELETAL: Extremities without clubbing, cyanosis. Trace edema of feet and lower extremities. No posterior leg tenderness, negative Homans. There is some redness of distal right leg but reportedly this is relatively chronic and better than usual. Deformities fingers bilat. NEUROLOGICAL: Awake and alert, answers questions appropriately. No obvious cranial nerve deficits. Moves all extremities equally and to command A/P Assessment and Plan NEURO: Intellectual disability Resides in [facility] at baseline. PT to evaluate RESP: Acute hypoxemic respiratory failure on BiPAP Acute COPD exacerbation DuoNeb every 4 hours. Albuterol every 2 hours as needed. Continue Solu-Medrol 60 mg IV every 6 hours. Bipap 10/5 and wean as tolerated. Hold prednisone 5 mg by mouth daily which she is on as outpatient per Dr. fang Hold Symbicort 160/4.51 puff inhaled every 12 hours Budesonide 0.5 bid. Patient is known to Dr. Fang cough with Chest x-ray with perihilar infiltrate - appears chronic on prior imaging. Antibiotics as per below CV: History of CHF Intraventricular conduction delay Hyperlipidemia Patient denies chest pain. Cardiac markers negative CHF appears compensated with BNP of 47 and without significant pulmonary edema Continue statin, pravastatin 40 mEq by mouth daily at bedtime Lasix 20 mg by mouth daily Negative cardiac cath in 2010 GI: GERD Heart healthy diet PPI for stress ulcer prophylaxis and history of GERD FEN/RENAL: Voiding. Monitor intake and output. Monitor electrolytes and replace as indicated Potassium is upper end of normal and she has been on potassium supplementation which is being held. ID: Healthcare associated pneumonia present on admission Leukocytosis Received Aztreonam, Flagyl, vancomycin in the emergency department. creatinine clearance 37 on 03/18. Continue aztreonam 2 g IV every 8 hours. Levaquin 750 mg IV every 48 hours for atypical. Influenza -03/18/17 negative Send blood cultures now Obtain U/a - negative HEME: Iron deficiency anemia Ferrous sulfate 325 mill grams by mouth 3 times a day bilateral lower extremity ultrasound 03/18 - negative. ENDO: Diabetes mellitus Hold glipizide and repaglinide. Medium dose insulin sliding scale ac/hs PROPH: Lovenox 30 mg subcutaneous daily for DVT prophylaxis. Protonix 40 mg by mouth daily for stress ulcer prophylaxis and history of GERD ACCESS: Peripheral IV providing adequate access at this time. Level II follow-up Madison Jama MD Mar 19, 2017 15:17
[2017-03-19] MEDS: ENOXAPARIN SODIUM 30 MG/0.3 ML SYRINGE SQ SCH (15:48)
[2017-03-19] MEDS: RESP: BUDESONIDE 0.5 MG/2 ML NEB NEB SCH (20:00)
[2017-03-19] MEDS: PRAVASTATIN SOD 80 MG TAB PO SCH (20:56)
[2017-03-20] VITALS (12 sets, daily range): BP systolic 103–136; BP diastolic 49–70; PULSE 72–109; RESP 16–20; TEMP 97.7–98.7; O2SAT 95–98
[2017-03-20] MEDS: RESP: ALBUTEROL 2.5 MG/IPRATROPIUM 0.5 MG NEB (SCH) INH ×7 (00:49→23:30)
[2017-03-20] MEDS: AZTREONAM INJ 1,000 MG in SODIUM CHLORIDE 0.9% INJ 100 ML IV SCH ×3 (01:09→17:02)
[2017-03-20] MEDS: CHLORHEXIDINE GLUCONATE 2 % 1 PACK (2 CLOTHS) TOP SCH (04:00)
[2017-03-20] MEDS: methylPREDNISolone SOD SUCC 125 MG/2 ML VIAL IV PUSH SCH ×4 (04:29→21:39)
[2017-03-20 05:59] LABS: AUTOMATED NEUTROPHIL # 12.1 TH/MM3 (1.8-7.7); HEMATOCRIT 32.6 % (35.0-46.0); HEMOGLOBIN 10.7 GM/DL (11.6-15.3); LYMPHOCYTE # 0.3 TH/MM3 (1.0-4.8); MEAN CORPUSCULAR HEMOGLOBIN 32.2 PG (27.0-34.0); MEAN CORPUSCULAR HGB CONC 32.8 % (32.0-36.0); MEAN PLATELET VOLUME 8.7 FL (7.0-11.0); MONO % 2.8 % (0.0-8.0); MONOCYTE # 0.4 TH/MM3 (0-0.9); NEUT % 95.2 % (16.0-70.0); PLATELET COUNT 175 TH/MM3 (150-450); RED BLOOD COUNT 3.33 MIL/MM3 (4.00-5.30); RED CELL DISTRIBUTION WIDTH 13.7 % (11.6-17.2); WHITE BLOOD COUNT 12.7 TH/MM3 (4.0-11.0)
[2017-03-20 06:32] LABS: BICARBONATE 30.3 MEQ/L (21.0-32.0); CALCIUM 9.1 MG/DL (8.5-10.1); CREATININE 0.93 MG/DL (0.50-1.00)
[2017-03-20] MEDS: INSULIN ASPART SUPPLEMENTAL SCALE SQ SCH ×2 (07:46→11:41)
[2017-03-20] MEDS: SODIUM CHLORIDE 0.9% FLUSH 10 ML FLUSH IV FLUSH SCH ×2 (07:46→21:00)
[2017-03-20] MEDS: CALCIUM/VITAMIN D 250 MG/125 U TAB PO SCH ×3 (07:47→17:17)
[2017-03-20] MEDS: FUROSEMIDE 20 MG TAB PO SCH (07:47)
[2017-03-20] MEDS: DOCUSATE SODIUM 50 MG/SENNA 8.6 MG TAB PO SCH ×2 (07:47→21:39)
[2017-03-20] MEDS: PANTOPRAZOLE SOD 40 MG DELAYED RELEASE TAB PO SCH (07:47)
[2017-03-20] MEDS: FERROUS SULFATE 325 MG (65 MG ELEMENTAL IRON) TAB PO SCH ×3 (07:48→17:18)
[2017-03-20] MEDS: RESP: BUDESONIDE 0.5 MG/2 ML NEB NEB SCH ×2 (07:56→19:24)
--- NOTE | 2017-03-20 08:32 | HHI.CCPN ---
Subjective Remarks/Hospital Course 82-year-old [place] female with past medical history of COPD on chronic prednisone 5 mg daily, CHF, diabetes, hyperlipidemia, iron deficiency anemia. She has resided in an [place] for 20 years. She presents to [facility] emergency department due to shortness of breath that initially started the evening of 03/16. When her niece came to visit her today her breathing had worsened and EVAC was called. Sats were in the mid 80s on room air upon E VAC arrival. She had bilateral Rales and wheezing on arrival and was given Lasix 60 mg IV and placed on BiPAP 10/5 50% per the ED physician. She was also administered aztreonam, vancomycin, Flagyl. She has voided twice in the ED and put out 600 mL. She has had a nonproductive cough. She denies fever. She was not febrile on arrival. Denies chest pain. Her white blood cell count is 19. Chest x-ray shows some perihilar infiltrates. These have been present in the past on x-ray in 2015. She had some respiratory issues around and has been on increased Lasix dosing since then per Dr. Cardenas. Her creatinine is increased to 1.13 compared with her prior baseline of 0.8 from 2015. Her BNP is 47. Patient states her bowel movements have been normal. She has some redness of her left lower extremity and has been treated for cellulitis there in the past but states this is improved compared to usual. .Her niece states she has been intubated in the past on 2 occasions and the last intubation resulted in prolonged weaning. Patient states she is agreeable to intubation if needed. Her niece is reportedly her healthcare surrogate. She has no recent travel, recent surgeries, history of venous thromboembolic disease or known malignancy. Subjective: 03/19 Went back on BiPAP overnight. Was on 4 L nasal cannula this morning. She ate. She requested to go back on to BiPAP around noon. WBC down to 15. Expiratory wheezes persist bilaterally but she appears comfortable on Bipap 03/20: continues to improve. on 3L o2 by NC. tolerating diet. feels better. cultures NGTD. ROS negative. Objective Vital Signs Date Time Temp Pulse Resp B/P (MAP) Pulse Ox O2 Delivery O2 Flow Rate FiO2 03/20/17 07:56 98 Nasal Cannula 3.00 03/20/17 07:00 97.8 74 16 103/49 (67) 03/20/17 03:15 30 Intake and Output 03/20/17 03/20/17 03/21/17 08:00 16:00 00:00 Intake Total 500 ml Output Total 475 ml Balance 25 ml Result Diagram: 03/20/17 0357 03/20/17 0357 Other Results Microbiology Date/Time Source Procedure Growth Status 03/18/17 12:15 Nasal Aspirate Influenza Types A,B Antigen (SILVER) - Final NEGATIVE FOR FLU A AND B ANTIGEN.... Complete Objective Remarks GENERAL: elderly patient who is sitting up in bed on NC o2. SKIN: Warm and dry, well perfused. See extremity exam as per below. HEAD: Atraumatic. Normocephalic. EYES: Right pupil 6 mm, irregular and nonreactive. Left pupil 4 mm reactive.. No scleral icterus. No injection or drainage. ENT: nc o2 in place. mucous membranes moist. NECK: Trachea midline. No JVD. CARDIOVASCULAR: Tachycardic, regular, sinus by tele: currently receiving albuterol neb. RESPIRATORY: . equal chest rise. unlabored. on nc o2. GASTROINTESTINAL: Abdomen soft, non-tender, nondistended. no guarding. MUSCULOSKELETAL: Extremities without clubbing, cyanosis. Trace edema of feet and lower extremities. No posterior leg tenderness, negative Homans. There is some redness of distal right leg but reportedly this is relatively chronic and continues to improve from prior documentation. Deformities fingers bilat. NEUROLOGICAL: Awake and alert, answers questions appropriately. No obvious cranial nerve deficits. Moves all extremities equally and to command A/P Assessment and Plan Assessment: 82yF with COPD exacerbation. clinically improving. will send procalcitonin: if this is normal, at 48h will d/c aztreonam and finish 7 day course of PO levaquin, vs. d/c abx and monitor clinically. stable for transfer to floor. will consult hospitalist. NEURO: Intellectual disability Resides in [place] at baseline. PT to evaluate RESP: Acute hypoxemic respiratory failure on BiPAP Acute COPD exacerbation DuoNeb every 4 hours. Albuterol every 2 hours as needed. Continue Solu-Medrol 60 mg IV every 6 hours. Hold prednisone 5 mg by mouth daily which she is on as outpatient per Dr. fang Hold Symbicort 160/4.51 puff inhaled every 12 hours Budesonide 0.5 bid. Patient is known to Dr. Fang cough with Chest x-ray with perihilar infiltrate - appears chronic on prior imaging. Antibiotics as per below CV: History of CHF Intraventricular conduction delay Hyperlipidemia Patient denies chest pain. Cardiac markers negative CHF appears compensated with BNP of 47 and without significant pulmonary edema Continue statin, pravastatin 40 mEq by mouth daily at bedtime Lasix 20 mg by mouth daily Negative cardiac cath in 2010 GI: GERD Heart healthy diet PPI for stress ulcer prophylaxis and history of GERD FEN/RENAL: Voiding. Monitor intake and output. Monitor electrolytes and replace as indicated Potassium is upper end of normal and she has been on potassium supplementation which is being held. ID: Healthcare associated pneumonia present on admission Leukocytosis Received Aztreonam, Flagyl, vancomycin in the emergency department. creatinine clearance 37 on 03/18. Continue aztreonam 2 g IV every 8 hours. Levaquin 750 mg IV every 48 hours for atypical. send procalcitonin. if normal with negative cultures at 48h, would de-escalate abx. Influenza -03/18/17 negative Send blood cultures now Obtain U/a - negative HEME: Iron deficiency anemia Ferrous sulfate 325 mill grams by mouth 3 times a day bilateral lower extremity ultrasound 03/18 - negative. ENDO: Diabetes mellitus Hold glipizide and repaglinide. Medium dose insulin sliding scale ac/hs PROPH: Lovenox 30 mg subcutaneous daily for DVT prophylaxis. Protonix 40 mg by mouth daily for stress ulcer prophylaxis and history of GERD ACCESS: Peripheral IV providing adequate access at this time. dispo: transfer to floor. consult hospitalist. Ricco Hector MD Mar 20, 2017 08:32
[2017-03-20] MEDS ORDERED: CARVEDILOL 3.125 MG TAB PO SCH (09:00)
[2017-03-20] MEDS ORDERED: METOPROLOL TARTRATE 5 MG/5 ML VIAL ONE (09:37)
[2017-03-20] MEDS ORDERED: METOPROLOL TARTRATE 5 MG/5 ML VIAL IV ONE (09:39)
[2017-03-20] MEDS ORDERED: DEXTROSE 50% IN WATER 50 ML VIAL(D50) IV PUSH PRN ×2 (13:00→13:30)
[2017-03-20] MEDS ORDERED: GLUCAGON 1 MG/ML VIAL OTHER PRN ×2 (13:00→13:30)
[2017-03-20] MEDS: ENOXAPARIN SODIUM 30 MG/0.3 ML SYRINGE SQ SCH (16:59)
[2017-03-20] MEDS: HIGH DOSE INSULIN NOVOLOG SUPPLEMENTAL SCALE SQ SCH ×2 (17:00→21:00)
[2017-03-20] MEDS ORDERED: HIGH DOSE INSULIN NOVOLIN REGULAR SUPPLEMENTAL SCALE SQ SCH (17:00)
[2017-03-20] MEDS: LEVOFLOXACIN 750 MG PREMIX INJ 150 ML IV SCH (17:02)
[2017-03-20] MEDS: PRAVASTATIN SOD 80 MG TAB PO SCH (21:39)
[2017-03-21] VITALS (13 sets, daily range): BP systolic 106–142; BP diastolic 52–67; PULSE 87–113; RESP 18–22; TEMP 97.9–98.6; O2SAT 95–97
[2017-03-21] MEDS: AZTREONAM INJ 1,000 MG in SODIUM CHLORIDE 0.9% INJ 100 ML IV SCH ×3 (00:24→16:33)
[2017-03-21] MEDS: CHLORHEXIDINE GLUCONATE 2 % 1 PACK (2 CLOTHS) TOP SCH (02:56)
[2017-03-21] MEDS: methylPREDNISolone SOD SUCC 125 MG/2 ML VIAL IV PUSH SCH ×4 (03:11→22:11)
[2017-03-21] MEDS: RESP: ALBUTEROL 2.5 MG/IPRATROPIUM 0.5 MG NEB (SCH) INH ×5 (03:23→20:07)
[2017-03-21] MEDS: RESP: BUDESONIDE 0.5 MG/2 ML NEB NEB SCH ×2 (07:54→20:07)
[2017-03-21] MEDS: PANTOPRAZOLE SOD 40 MG DELAYED RELEASE TAB PO SCH (08:37)
[2017-03-21] MEDS: HIGH DOSE INSULIN NOVOLOG SUPPLEMENTAL SCALE SQ SCH ×4 (08:37→20:50)
[2017-03-21] MEDS: CALCIUM/VITAMIN D 250 MG/125 U TAB PO SCH ×3 (08:37→17:21)
[2017-03-21] MEDS: DOCUSATE SODIUM 50 MG/SENNA 8.6 MG TAB PO SCH ×2 (08:37→20:50)
[2017-03-21] MEDS: FERROUS SULFATE 325 MG (65 MG ELEMENTAL IRON) TAB PO SCH ×3 (08:37→17:21)
[2017-03-21] MEDS: SODIUM CHLORIDE 0.9% FLUSH 10 ML FLUSH IV FLUSH SCH ×2 (08:38→20:50)
[2017-03-21] MEDS: FUROSEMIDE 20 MG TAB PO SCH (08:38)
--- NOTE | 2017-03-21 16:27 | HHI.PR ---
Subjective Remarks sob much better satting well on 2 liters nasal canula Denies cp afebrile Blood sugar elevated in the 200's Objective Vitals Vital Signs Date Time Temp Pulse Resp B/P (MAP) Pulse Ox O2 Delivery O2 Flow Rate FiO2 03/21/17 12:00 98.5 107 20 124/58 (80) 97 03/21/17 11:58 2.00 03/21/17 08:00 113 03/21/17 08:00 98.6 110 20 106/52 (70) 95 03/21/17 07:58 Nasal Cannula 2.00 03/21/17 07:58 108 03/21/17 04:35 Nasal Cannula 2.00 03/21/17 04:00 98.0 107 22 142/67 (92) 95 03/21/17 03:46 108 03/21/17 00:21 102 03/21/17 00:05 Nasal Cannula 2.00 03/21/17 00:00 98.0 103 20 124/58 (80) 95 03/20/17 23:08 95 Nasal Cannula 2.00 03/20/17 23:00 97.7 85 16 106/50 (68) 95 03/20/17 23:00 85 03/20/17 20:00 104 03/20/17 19:25 97 Nasal Cannula 2.00 03/20/17 19:00 97.7 109 18 120/64 (82) 97 03/20/17 19:00 97 Nasal Cannula 2.00 I/O 03/20/17 03/20/17 03/20/17 03/21/17 03/21/17 03/21/17 07:00 15:00 23:00 07:00 15:00 23:00 Intake Total 500 ml 2050 ml 340 ml 100 ml Output Total 475 ml 200 ml Balance 25 ml 1850 ml 340 ml 100 ml Intake Oral 400 ml 1500 ml 240 ml IV Total 100 ml 550 ml 100 ml 100 ml Output Urine Total 475 ml 200 ml # Voids 2 1 # Bowel Movements 1 2 0 Result Diagram: 03/20/17 0357 03/20/17 0357 Imaging Last Impressions Chest X-Ray 03/19/17 0000 Signed Impressions: Service Date/Time: Sunday, March 19, 2017 03:26 - CONCLUSION: Patchy bilateral mid and basilar consolidation not significantly changed. Bhavesh Cardona MD Lower Extremity Ultrasound 03/18/17 0000 Signed Impressions: Service Date/Time: Saturday, March 18, 2017 15:40 - CONCLUSION: Normal examination. Radames Piper MD Objective Remarks GENERAL: elderly patient who is sitting up in bed on NC o2. SKIN: Warm and dry, well perfused. See extremity exam as per below. HEAD: Atraumatic. Normocephalic. EYES: Right pupil 6 mm, irregular and nonreactive. Left pupil 4 mm reactive.. No scleral icterus. No injection or drainage. ENT: nc o2 in place. mucous membranes moist. NECK: Trachea midline. No JVD. CARDIOVASCULAR: Tachycardic, regular, sinus by tele: currently receiving albuterol neb. RESPIRATORY: . equal chest rise. unlabored. on nc o2. GASTROINTESTINAL: Abdomen soft, non-tender, nondistended. no guarding. MUSCULOSKELETAL: Extremities without clubbing, cyanosis. Trace edema of feet and lower extremities. No posterior leg tenderness, negative Homans. There is some redness of distal right leg but reportedly this is relatively chronic and continues to improve from prior documentation. Deformities fingers bilat. NEUROLOGICAL: Awake and alert, answers questions appropriately. No obvious cranial nerve deficits. Moves all extremities equally and to command Procedures none Medications and IVs Current Medications Medications (Trade) Dose Ordered Sig/Emanuel Route Start Time Stop Time Status Last Admin (NS Flush) 2 ml UNSCH PRN IV FLUSH 03/18/17 15:30 (NS Flush) 2 ml BID IV FLUSH 03/18/17 21:00 03/21/17 08:38 (Tylenol) 650 mg Q6H PRN PO 03/18/17 15:30 (Zofran Inj) 4 mg Q6H PRN IV PUSH 03/18/17 15:30 (Duoneb Neb) 1 ampule Q4HR NEB INH 03/18/17 16:00 03/21/17 11:25 (Albuterol Neb) 2.5 mg Q2HR NEB PRN INH 03/18/17 15:30 Miscellaneous Information 1 Q361D XX 03/18/17 15:30 (Chlorhexidine 2% Cloth) 3 pack Taper DAILY@04 TOP 03/19/17 04:00 03/15/18 03:59 03/19/17 04:00 (Chlorhexidine 2% Cloth) 3 pack UNSCH PRN TOP 03/18/17 15:30 (Divina-Colace) 1 tab BID PO 03/18/17 21:00 03/21/17 08:37 (Milk Of Magnesia Liq) 30 ml Q12H PRN PO 03/18/17 15:30 (Senokot) 17.2 mg Q12H PRN PO 03/18/17 15:30 (Dulcolax Supp) 10 mg DAILY PRN RECTAL 03/18/17 15:30 (Lactulose Liq) 30 ml DAILY PRN PO 03/18/17 15:30 (Lovenox Inj) 30 mg Q24H SQ 03/18/17 16:00 03/20/17 16:59 (SoluMEDROL INJ) 60 mg Q6H IV PUSH 03/18/17 16:00 03/21/17 09:28 (Symbicort 160-4.5 Mcg Inh) 1 puff Q12HR INH 03/18/17 21:00 Future Hold 03/19/17 08:38 (Ferrous Sulfate) 325 mg TIDPC PO 03/18/17 18:30 03/21/17 12:20 (Protonix) 40 mg DAILY PO 03/19/17 09:00 03/21/17 08:37 Levofloxacin/ Dextrose 150 ml @ 100 mls/hr Q48H IV 03/18/17 17:00 03/20/17 17:02 (Oscal-D 250-125) 500 mg TID PO 03/18/17 18:00 03/21/17 12:19 (Pravachol) 80 mg HS PO 03/18/17 21:00 03/20/17 21:39 Aztreonam 1000 mg/ Sodium Chloride 100 ml @ 200 mls/hr Q8H IV 03/19/17 01:00 03/21/17 08:37 (Pulmicort Respule Neb) 0.5 mg Q12HR NEB NEB 03/19/17 20:00 03/21/17 07:54 (Lasix) 20 mg DAILY PO 03/20/17 09:00 03/21/17 08:38 (NovoLOG SUPPLEMENTAL SCALE) 1 ACHS SLIDING SCALE SQ 03/20/17 17:00 03/21/17 12:19 (D50w (Vial) Inj) 50 ml UNSCH PRN IV PUSH 03/20/17 13:30 (Glucagon Inj) 1 mg UNSCH PRN OTHER 03/20/17 13:30 A/P Assessment and Plan Assessment: 82yF with COPD exacerbation. clinically improving. will send procalcitonin: if this is normal, at 48h will d/c aztreonam and finish 7 day course of PO levaquin, vs. d/c abx and monitor clinically. stable for transfer to floor. will consult hospitalist. Intellectual disability Resides in [facility] at baseline. PT to evaluate RESP: Acute hypoxemic respiratory failure on BiPAP Acute COPD exacerbation DuoNeb every 4 hours. Albuterol every 2 hours as needed. Continue Solu-Medrol 60 mg IV every 6 hours. Hold prednisone 5 mg by mouth daily which she is on as outpatient per Dr. fang Hold Symbicort 160/4.51 puff inhaled every 12 hours Budesonide 0.5 bid. Patient is known to Dr. Fang cough with Chest x-ray with perihilar infiltrate - appears chronic on prior imaging. Antibiotics as per below 03/21 Decrease Solumedrol to 40 mg IV Q 8 hrs. CV: History of CHF Intraventricular conduction delay Hyperlipidemia Patient denies chest pain. Cardiac markers negative CHF appears compensated with BNP of 47 and without significant pulmonary edema Continue statin, pravastatin 40 mEq by mouth daily at bedtime Lasix 20 mg by mouth daily Negative cardiac cath in 03/21 Check 2 D echo. GI: GERD Heart healthy diet PPI for stress ulcer prophylaxis and history of GERD FEN/RENAL: Voiding. Monitor intake and output. Monitor electrolytes and replace as indicated Potassium is upper end of normal and she has been on potassium supplementation which is being held. ID: Healthcare associated pneumonia present on admission Leukocytosis Received Aztreonam, Flagyl, vancomycin in the emergency department. creatinine clearance 37 on 03/18. Continue aztreonam 2 g IV every 8 hours. Levaquin 750 mg IV every 48 hours for atypical. send procalcitonin. if normal with negative cultures at 48h, would de-escalate abx. Influenza -03/18/17 negative Send blood cultures now Obtain U/a - negative 03/21 Blood culture negative to date. HEME: Iron deficiency anemia Ferrous sulfate 325 mill grams by mouth 3 times a day bilateral lower extremity ultrasound 03/18 - negative. ENDO: Diabetes mellitus Hold glipizide and repaglinide. Medium dose insulin sliding scale ac/hs 1/2 Blood sugars very elevated and uncontrolled. Will start Levemir 10 units SQ bid. Continue SSI. Will check hemoglobin A1C. PROPH: Lovenox 30 mg subcutaneous daily for DVT prophylaxis. Protonix 40 mg by mouth daily for stress ulcer prophylaxis and history of GERD ACCESS: Peripheral IV providing adequate access at this time. Discharge Planning Pending echo, Pending improvement of blood sugars. Rick Nicolas MD Mar 21, 2017 16:27
[2017-03-21] MEDS: ENOXAPARIN SODIUM 30 MG/0.3 ML SYRINGE SQ SCH (16:33)
[2017-03-21 16:59] LABS: AUTOMATED NEUTROPHIL # 11.5 TH/MM3 (1.8-7.7); HEMATOCRIT 34.1 % (35.0-46.0); HEMOGLOBIN 11.2 GM/DL (11.6-15.3); LYMPH % 1.2 % (9.0-44.0); LYMPHOCYTE # 0.2 TH/MM3 (1.0-4.8); MEAN CELL VOLUME 97.6 FL (80.0-100.0); MEAN CORPUSCULAR HEMOGLOBIN 31.9 PG (27.0-34.0); MEAN CORPUSCULAR HGB CONC 32.7 % (32.0-36.0); MEAN PLATELET VOLUME 8.4 FL (7.0-11.0); MONOCYTE # 0.6 TH/MM3 (0-0.9); NEUT % 93.8 % (16.0-70.0); PLATELET COUNT 198 TH/MM3 (150-450); RED CELL DISTRIBUTION WIDTH 13.1 % (11.6-17.2); WHITE BLOOD COUNT 12.2 TH/MM3 (4.0-11.0)
[2017-03-21 17:20] LABS: ALBUMIN 2.7 GM/DL (3.4-5.0); ALKALINE PHOSPHATASE 60 U/L (45-117); ALT (GPT) 20 U/L (10-53); AST (GOT) 16 U/L (15-37); BICARBONATE 29.7 MEQ/L (21.0-32.0); BLOOD UREA NITROGEN 48 MG/DL (7-18); CALCIUM 9.5 MG/DL (8.5-10.1); CHLORIDE 97 MEQ/L (98-107); CREATININE 1.18 MG/DL (0.50-1.00); GLOMERULAR FILTRATION RATE 44 ML/MIN (>89); GLUCOSE,RANDOM 231 MG/DL (74-106); SODIUM (NA) 134 MEQ/L (136-145); TOTAL BILIRUBIN ADULT 0.2 MG/DL (0.2-1.0); TOTAL PROTEIN 6.4 GM/DL (6.4-8.2)
[2017-03-21 18:09] LABS: BANDS 4 % (0-6); MONOCYTES 3 % (0-8); NEUTROPHIL # MANUAL DIFF 11.3 TH/MM3 (1.8-7.7); POLYS (SEG NEUTROPHILS) 89 % (16-70)
[2017-03-21 18:10] LABS: LYMPHOCYTES 4 % (9-44)
[2017-03-21] MEDS: PRAVASTATIN SOD 80 MG TAB PO SCH (20:50)
[2017-03-22] VITALS (12 sets, daily range): BP systolic 123–144; BP diastolic 58–68; PULSE 78–103; RESP 18–20; TEMP 97.4–98.6; O2SAT 2–97
[2017-03-22] MEDS: RESP: ALBUTEROL 2.5 MG/IPRATROPIUM 0.5 MG NEB (SCH) INH ×5 (00:19→15:43)
[2017-03-22] MEDS: AZTREONAM INJ 1,000 MG in SODIUM CHLORIDE 0.9% INJ 100 ML IV SCH ×3 (00:53→18:10)
[2017-03-22] MEDS: CHLORHEXIDINE GLUCONATE 2 % 1 PACK (2 CLOTHS) TOP SCH (03:39)
[2017-03-22] MEDS: methylPREDNISolone SOD SUCC 125 MG/2 ML VIAL IV PUSH SCH (03:39)
[2017-03-22 06:52] LABS: AUTOMATED NEUTROPHIL # 8.6 TH/MM3 (1.8-7.7); HEMATOCRIT 33.1 % (35.0-46.0); LYMPH % 2.8 % (9.0-44.0); LYMPHOCYTE # 0.3 TH/MM3 (1.0-4.8); MEAN CELL VOLUME 97.5 FL (80.0-100.0); MEAN CORPUSCULAR HEMOGLOBIN 32.6 PG (27.0-34.0); MEAN CORPUSCULAR HGB CONC 33.4 % (32.0-36.0); MEAN PLATELET VOLUME 8.6 FL (7.0-11.0); MONO % 2.8 % (0.0-8.0); MONOCYTE # 0.3 TH/MM3 (0-0.9); NEUT % 94.4 % (16.0-70.0); PLATELET COUNT 182 TH/MM3 (150-450); RED BLOOD COUNT 3.39 MIL/MM3 (4.00-5.30); RED CELL DISTRIBUTION WIDTH 13.5 % (11.6-17.2); WHITE BLOOD COUNT 9.1 TH/MM3 (4.0-11.0)
[2017-03-22 07:10] LABS: ALBUMIN 2.5 GM/DL (3.4-5.0); ALT (GPT) 17 U/L (10-53); AST (GOT) 15 U/L (15-37); BICARBONATE 30.4 MEQ/L (21.0-32.0); BLOOD UREA NITROGEN 49 MG/DL (7-18); CALCIUM 9.1 MG/DL (8.5-10.1); CHLORIDE 99 MEQ/L (98-107); CREATININE 1.13 MG/DL (0.50-1.00); GLOMERULAR FILTRATION RATE 46 ML/MIN (>89); GLUCOSE,RANDOM 237 MG/DL (74-106); SODIUM (NA) 136 MEQ/L (136-145)
[2017-03-22 07:12] LABS: ALKALINE PHOSPHATASE 53 U/L (45-117); TOTAL BILIRUBIN ADULT 0.2 MG/DL (0.2-1.0); TOTAL PROTEIN 5.9 GM/DL (6.4-8.2)
[2017-03-22] MEDS: RESP: BUDESONIDE 0.5 MG/2 ML NEB NEB SCH ×2 (07:51→19:15)
[2017-03-22] MEDS: HIGH DOSE INSULIN NOVOLOG SUPPLEMENTAL SCALE SQ SCH ×4 (08:00→21:18)
[2017-03-22] MEDS: INSULIN DETEMIR 100 UNITS/ML VIAL SQ SCH ×2 (09:45→21:17)
[2017-03-22] MEDS: PANTOPRAZOLE SOD 40 MG DELAYED RELEASE TAB PO SCH (09:58)
[2017-03-22] MEDS: FUROSEMIDE 20 MG TAB PO SCH (09:58)
[2017-03-22] MEDS: FERROUS SULFATE 325 MG (65 MG ELEMENTAL IRON) TAB PO SCH ×3 (09:58→18:11)
[2017-03-22] MEDS: CALCIUM/VITAMIN D 250 MG/125 U TAB PO SCH ×3 (09:58→18:00)
[2017-03-22] MEDS: DOCUSATE SODIUM 50 MG/SENNA 8.6 MG TAB PO SCH ×2 (09:58→21:16)
[2017-03-22] MEDS: SODIUM CHLORIDE 0.9% FLUSH 10 ML FLUSH IV FLUSH SCH ×2 (09:59→21:17)
[2017-03-22] MEDS ORDERED: methylPREDNISolone SOD SUCC 40 MG/1 ML VIAL IV PUSH SCH (14:00)
--- NOTE | 2017-03-22 17:15 | HHI.PR ---
Subjective Remarks Patient states she feels much better. Denies cp, sob at baseline. sating 97% on 3 liters nasal canula. Objective Vitals Vital Signs Date Time Temp Pulse Resp B/P (MAP) Pulse Ox O2 Delivery O2 Flow Rate FiO2 03/22/17 15:43 97 Nasal Cannula 3.00 03/22/17 12:00 98.4 83 20 131/62 (85) 96 03/22/17 09:00 Nasal Cannula 2.00 03/22/17 08:00 98.1 103 20 140/65 (90) 95 03/22/17 07:51 96 Nasal Cannula 3.00 03/22/17 04:16 85 03/22/17 04:00 98.1 101 18 144/68 (93) 96 03/22/17 04:00 Nasal Cannula 2.00 03/22/17 00:21 2 Nasal Cannula 2.00 03/22/17 00:07 78 03/22/17 00:00 97.4 82 20 140/67 (91) 95 03/22/17 00:00 Nasal Cannula 2.00 03/21/17 22:10 96 Nasal Cannula 2.00 03/21/17 22:10 Nasal Cannula 2.00 03/21/17 20:03 87 03/21/17 20:00 97.9 104 18 133/63 (86) 96 I/O 03/21/17 03/21/17 03/21/17 03/22/17 03/22/17 03/22/17 07:00 15:00 23:00 07:00 15:00 23:00 Intake Total 340 ml 100 ml 550 ml Output Total 750 ml Balance 340 ml 100 ml 550 ml -750 ml Intake Oral 240 ml 450 ml IV Total 100 ml 100 ml 100 ml Output Urine Total 750 ml # Voids 1 2 # Bowel Movements 0 1 1 Result Diagram: 03/22/17 0512 03/22/17 0512 Imaging Last Impressions Chest X-Ray 03/19/17 0000 Signed Impressions: Service Date/Time: Sunday, March 19, 2017 03:26 - CONCLUSION: Patchy bilateral mid and basilar consolidation not significantly changed. Bhavesh Cardona MD Lower Extremity Ultrasound 03/18/17 0000 Signed Impressions: Service Date/Time: Saturday, March 18, 2017 15:40 - CONCLUSION: Normal examination. Radames Piper MD Objective Remarks GENERAL: elderly patient who is sitting up in bed on NC o2. SKIN: Warm and dry, well perfused. See extremity exam as per below. HEAD: Atraumatic. Normocephalic. EYES: Right pupil 6 mm, irregular and nonreactive. Left pupil 4 mm reactive.. No scleral icterus. No injection or drainage. ENT: nc o2 in place. mucous membranes moist. NECK: Trachea midline. No JVD. CARDIOVASCULAR: Tachycardic, regular, sinus by tele: currently receiving albuterol neb. RESPIRATORY: . equal chest rise. unlabored. on nc o2. GASTROINTESTINAL: Abdomen soft, non-tender, nondistended. no guarding. MUSCULOSKELETAL: Extremities without clubbing, cyanosis. Trace edema of feet and lower extremities. No posterior leg tenderness, negative Homans. There is some redness of distal right leg but reportedly this is relatively chronic and continues to improve from prior documentation. Deformities fingers bilat. NEUROLOGICAL: Awake and alert, answers questions appropriately. No obvious cranial nerve deficits. Moves all extremities equally and to command Procedures none Medications and IVs Current Medications Medications (Trade) Dose Ordered Sig/Emanuel Route Start Time Stop Time Status Last Admin (NS Flush) 2 ml UNSCH PRN IV FLUSH 03/18/17 15:30 (NS Flush) 2 ml BID IV FLUSH 03/18/17 21:00 03/22/17 09:59 (Tylenol) 650 mg Q6H PRN PO 03/18/17 15:30 (Zofran Inj) 4 mg Q6H PRN IV PUSH 03/18/17 15:30 (Albuterol Neb) 2.5 mg Q2HR NEB PRN INH 03/18/17 15:30 Miscellaneous Information 1 Q361D XX 03/18/17 15:30 (Chlorhexidine 2% Cloth) 3 pack Taper DAILY@04 TOP 03/19/17 04:00 03/15/18 03:59 03/19/17 04:00 (Chlorhexidine 2% Cloth) 3 pack UNSCH PRN TOP 03/18/17 15:30 (Divina-Colace) 1 tab BID PO 03/18/17 21:00 03/22/17 09:58 (Milk Of Magnesia Liq) 30 ml Q12H PRN PO 03/18/17 15:30 (Senokot) 17.2 mg Q12H PRN PO 03/18/17 15:30 (Dulcolax Supp) 10 mg DAILY PRN RECTAL 03/18/17 15:30 (Lactulose Liq) 30 ml DAILY PRN PO 03/18/17 15:30 (Lovenox Inj) 30 mg Q24H SQ 03/18/17 16:00 03/21/17 16:33 (Symbicort 160-4.5 Mcg Inh) 1 puff Q12HR INH 03/18/17 21:00 Future Hold 03/19/17 08:38 (Ferrous Sulfate) 325 mg TIDPC PO 03/18/17 18:30 03/22/17 13:48 (Protonix) 40 mg DAILY PO 03/19/17 09:00 03/22/17 09:58 Levofloxacin/ Dextrose 150 ml @ 100 mls/hr Q48H IV 03/18/17 17:00 03/20/17 17:02 (Oscal-D 250-125) 500 mg TID PO 03/18/17 18:00 03/22/17 13:48 (Pravachol) 80 mg HS PO 03/18/17 21:00 03/21/17 20:50 Aztreonam 1000 mg/ Sodium Chloride 100 ml @ 200 mls/hr Q8H IV 03/19/17 01:00 03/22/17 09:00 (Pulmicort Respule Neb) 0.5 mg Q12HR NEB NEB 03/19/17 20:00 03/22/17 07:51 (Lasix) 20 mg DAILY PO 03/20/17 09:00 03/22/17 09:58 (NovoLOG SUPPLEMENTAL SCALE) 1 ACHS SLIDING SCALE SQ 03/20/17 17:00 03/22/17 12:00 (D50w (Vial) Inj) 50 ml UNSCH PRN IV PUSH 03/20/17 13:30 (Glucagon Inj) 1 mg UNSCH PRN OTHER 03/20/17 13:30 (SoluMEDROL INJ) 40 mg Q8HR IV PUSH 03/22/17 14:00 03/22/17 13:47 (Levemir Inj) 10 units Q12HR SQ 03/22/17 09:45 03/22/17 09:45 A/P Assessment and Plan Assessment: 82yF with COPD exacerbation. clinically improving. will send procalcitonin: if this is normal, at 48h will d/c aztreonam and finish 7 day course of PO levaquin, vs. d/c abx and monitor clinically. stable for transfer to floor. will consult hospitalist. Intellectual disability Resides in [facility] at baseline. PT to evaluate RESP: Acute hypoxemic respiratory failure on BiPAP Acute COPD exacerbation DuoNeb every 4 hours. Albuterol every 2 hours as needed. Continue Solu-Medrol 60 mg IV every 6 hours. Hold prednisone 5 mg by mouth daily which she is on as outpatient per Dr. fang Hold Symbicort 160/4.51 puff inhaled every 12 hours Budesonide 0.5 bid. Patient is known to Dr. Fang cough with Chest x-ray with perihilar infiltrate - appears chronic on prior imaging. Antibiotics as per below 03/21 Decrease Solumedrol to 40 mg IV Q 8 hrs. 03/22 DC Solumedrol, start prednisone 20 mg po BID. CV: History of CHF Intraventricular conduction delay Hyperlipidemia Patient denies chest pain. Cardiac markers negative CHF appears compensated with BNP of 47 and without significant pulmonary edema Continue statin, pravastatin 40 mEq by mouth daily at bedtime Lasix 20 mg by mouth daily Negative cardiac cath in 03/22 Check 2 D echo ---> pending GI: GERD Heart healthy diet PPI for stress ulcer prophylaxis and history of GERD CKD stage III 03/22/17 Uppon review of records the patient has a baseline creatinine of 0.9- 1.1. Creatinine seems to be at baseline. Voiding. Monitor intake and output. Monitor electrolytes and replace as indicated Potassium is upper end of normal and she has been on potassium supplementation which is being held. ID: Healthcare associated pneumonia present on admission Leukocytosis Received Aztreonam, Flagyl, vancomycin in the emergency department. creatinine clearance 37 on 03/18. Continue aztreonam 2 g IV every 8 hours. Levaquin 750 mg IV every 48 hours for atypical. send procalcitonin. if normal with negative cultures at 48h, would de-escalate abx. Influenza -03/18/17 negative Send blood cultures now Obtain U/a - negative 03/21 Blood culture negative to date. HEME: Iron deficiency anemia Ferrous sulfate 325 mill grams by mouth 3 times a day bilateral lower extremity ultrasound 03/18 - negative. ENDO: Diabetes mellitus Hold glipizide and repaglinide. Medium dose insulin sliding scale ac/hs 1/2 Blood sugars very elevated and uncontrolled. Will start Levemir 10 units SQ bid. Continue SSI. Will check hemoglobin A1C. 1/3 Blood sugars still severely elevated will start on prandial insulin Novolog. Continue Levemir 10 units subcutaneous twice a day, continue SSI. PROPH: Lovenox 30 mg subcutaneous daily for DVT prophylaxis. Protonix 40 mg by mouth daily for stress ulcer prophylaxis and history of GERD ACCESS: Peripheral IV providing adequate access at this time. Discharge Planning Pending echo, Pending improvement of blood sugars. Rick Nicolas MD Mar 22, 2017 17:15
[2017-03-22] MEDS: ENOXAPARIN SODIUM 30 MG/0.3 ML SYRINGE SQ SCH (18:10)
[2017-03-22] MEDS: LEVOFLOXACIN 750 MG PREMIX INJ 150 ML IV SCH (18:48)
[2017-03-22] MEDS: predniSONE 20 MG TAB PO SCH (21:16)
[2017-03-22] MEDS: PRAVASTATIN SOD 80 MG TAB PO SCH (21:16)
[2017-03-23] VITALS: BP 132/63; PULSE 76; PULSE 92; RESP 20; TEMP 97.7; O2SAT 95
[2017-03-23] MEDS: AZTREONAM INJ 1,000 MG in SODIUM CHLORIDE 0.9% INJ 100 ML IV SCH ×2 (01:28→09:51)
[2017-03-23] MEDS: CHLORHEXIDINE GLUCONATE 2 % 1 PACK (2 CLOTHS) TOP SCH (03:33)
[2017-03-23 04:00] VITALS: BP 145/68; PULSE 76; RESP 20; TEMP 98.4; O2SAT 97
[2017-03-23 04:01] VITALS: PULSE 77
[2017-03-23 08:00] VITALS: BP 150/70; PULSE 75; PULSE 78; RESP 20; TEMP 97.3; O2SAT 98
[2017-03-23] MEDS: INSULIN ASPART 1,000 UNITS/10 ML VIAL SQ SCH ×2 (08:00→12:00)
[2017-03-23] MEDS: HIGH DOSE INSULIN NOVOLOG SUPPLEMENTAL SCALE SQ SCH ×2 (08:00→12:17)
[2017-03-23] MEDS: RESP: BUDESONIDE 0.5 MG/2 ML NEB NEB SCH (09:27)
[2017-03-23] MEDS: predniSONE 20 MG TAB PO SCH (09:50)
[2017-03-23] MEDS: DOCUSATE SODIUM 50 MG/SENNA 8.6 MG TAB PO SCH (09:50)
[2017-03-23] MEDS: CALCIUM/VITAMIN D 250 MG/125 U TAB PO SCH ×2 (09:50→12:17)
[2017-03-23] MEDS: FERROUS SULFATE 325 MG (65 MG ELEMENTAL IRON) TAB PO SCH ×2 (09:50→12:18)
[2017-03-23] MEDS: PANTOPRAZOLE SOD 40 MG DELAYED RELEASE TAB PO SCH (09:50)
[2017-03-23] MEDS: FUROSEMIDE 20 MG TAB PO SCH (09:53)
[2017-03-23] MEDS: INSULIN DETEMIR 100 UNITS/ML VIAL SQ SCH (09:54)
[2017-03-23] MEDS: SODIUM CHLORIDE 0.9% FLUSH 10 ML FLUSH IV FLUSH SCH (09:54)
[2017-03-23 12:00] VITALS: BP 160/77; PULSE 111; RESP 20; TEMP 97.3; O2SAT 99
[2017-03-23] MEDS ORDERED: LEVO750T3 PO (12:36)
[2017-03-23] MEDS ORDERED: PRED10PA PO (12:36)
--- NOTE | 2017-03-23 12:36 | HHI.DS ---
Discharge Summary Admission Date Mar 18, 2017 at 15:39 Discharge Date: Mar 23, 2017 Admitting Diagnosis Acute on chronic respiratory failure (1) HCAP (healthcare-associated pneumonia) ICD Code: J18.9 - Pneumonia, unspecified organism (2) COPD (chronic obstructive pulmonary disease) ICD Code: J44.9 - COPD (chronic obstructive pulmonary disease) Status: Chronic (3) DM (diabetes mellitus) ICD Code: E11.9 - DM (diabetes mellitus) Status: Chronic (4) HTN (hypertension) ICD Code: I10 - HTN (hypertension) Status: Chronic Procedures none Brief History - From Admission Date of admission 03/18/17 82-year-old Yi Iraqi female with past medical history of COPD on chronic prednisone 5 mg daily, CHF, diabetes, hyperlipidemia, iron deficiency anemia. She has resided in an [facility] for 20 years. She presents to [facility] emergency department due to shortness of breath that initially started the evening of 03/16. When her niece came to visit her today her breathing had worsened and EVAC was called. Sats were in the mid 80s on room air upon E VAC arrival. She had bilateral Rales and wheezing on arrival and was given Lasix 60 mg IV and placed on BiPAP 10/5 50% per the ED physician. She was also administered aztreonam, vancomycin, Flagyl. She has voided twice in the ED and put out 600 mL. She has had a nonproductive cough. She denies fever. She was not febrile on arrival. Denies chest pain. Her white blood cell count is 19. Chest x-ray shows some perihilar infiltrates. These have been present in the past on x-ray in 2015. She had some respiratory issues around and has been on increased Lasix dosing since then per Dr. Cardenas. Her creatinine is increased to 1.13 compared with her prior baseline of 0.8 from 2015. Her BNP is 47. Patient states her bowel movements have been normal. She has some redness of her left lower extremity and has been treated for cellulitis there in the past but states this is improved compared to usual. .Her niece states she has been intubated in the past on 2 occasions and the last intubation resulted in prolonged weaning. Patient states she is agreeable to intubation if needed. Her niece is reportedly her healthcare surrogate. She has no recent travel, recent surgeries, history of venous thromboembolic disease or known malignancy. CBC/BMP: 03/22/17 0512 03/22/17 0512 Significant Findings Laboratory Tests Test 03/21/17 16:14 03/22/17 05:12 White Blood Count 12.2 TH/MM3 (4.0-11.0) Red Blood Count 3.50 MIL/MM3 (4.00-5.30) 3.39 MIL/MM3 (4.00-5.30) Hemoglobin 11.2 GM/DL (11.6-15.3) 11.0 GM/DL (11.6-15.3) Hematocrit 34.1 % (35.0-46.0) 33.1 % (35.0-46.0) Neutrophils (%) (Auto) 93.8 % (16.0-70.0) 94.4 % (16.0-70.0) Lymphocytes (%) (Auto) 1.2 % (9.0-44.0) 2.8 % (9.0-44.0) Neutrophils # (Auto) 11.5 TH/MM3 (1.8-7.7) 8.6 TH/MM3 (1.8-7.7) Lymphocytes # (Auto) 0.2 TH/MM3 (1.0-4.8) 0.3 TH/MM3 (1.0-4.8) Neutrophils % (Manual) 89 % (16-70) Lymphocytes % 4 % (9-44) Neutrophils # (Manual) 11.3 TH/MM3 (1.8-7.7) Blood Urea Nitrogen 48 MG/DL (7-18) 49 MG/DL (7-18) Creatinine 1.18 MG/DL (0.50-1.00) 1.13 MG/DL (0.50-1.00) Random Glucose 231 MG/DL (74-106) 237 MG/DL (74-106) Albumin 2.7 GM/DL (3.4-5.0) 2.5 GM/DL (3.4-5.0) Sodium Level 134 MEQ/L (136-145) Chloride Level 97 MEQ/L (98-107) Estimat Glomerular Filtration Rate 44 ML/MIN (>89) 46 ML/MIN (>89) Total Protein 5.9 GM/DL (6.4-8.2) Imaging Last Impressions Chest X-Ray 03/19/17 0000 Signed Impressions: Service Date/Time: Sunday, March 19, 2017 03:26 - CONCLUSION: Patchy bilateral mid and basilar consolidation not significantly changed. Bhavesh Cardona MD Lower Extremity Ultrasound 03/18/17 0000 Signed Impressions: Service Date/Time: Saturday, March 18, 2017 15:40 - CONCLUSION: Normal examination. Radames Piper MD PE at Discharge GENERAL: elderly patient who is sitting up in bed on NC o2. SKIN: Warm and dry, well perfused. EYES: Right pupil 6 mm, irregular and nonreactive. Left pupil 4 mm reactive.. No scleral icterus. No injection or drainage. CARDIOVASCULAR: Normal rate, regular rhythm RESPIRATORY: Clear to auscultation bilaterally. Diminished breath sounds at the bases. GASTROINTESTINAL: Abdomen soft, non-tender, nondistended. no guarding. NEUROLOGICAL: Awake and alert, answers questions appropriately. Pt update on day of discharge Patient reports she feels close to her baseline. No chest pain. Stable on a nasal cannula. She understand the need to continue to use oxygen. Discussed discharge planning at length with the patient and her niece. Hospital Course 82yF with COPD exacerbation, probably secondary to healthcare associated pneumonia. The patient was admitted to the ICU for respiratory failure. She was initially on BiPAP. Her conditions improved with IV steroids and breathing treatments. She was also treated for healthcare associated pneumonia with aztreonam and Levaquin. The patient clinically improved. She is discharged back to the [facility] with home health care. She is to follow-up outpatient with her voltage regulator assembler. She does have an echo pending. Her niece is aware and this can be followed outpatient. Patient had hyperglycemia secondary to steroid. Blood glucose improved after she was transitioned to oral steroids. She is to continue on regular home dose oral diabetic agents. Pt Condition on Discharge: Good Discharge Disposition: Disch w/ Home Health Serv Discharge Time: > 30 minutes Discharge Instructions DIET: Follow Instructions for: Heart Healthy Diet Activities you can perform: Regular-No Restrictions Follow up Referrals: Pulmonology - 1 Week with Ellis Kasper MD New Medications: Levofloxacin (Levofloxacin) 750 Mg Tablet 750 MG PO DAILY for Infection, #4 TAB 0 Refills Oxygen (O2) (Oxygen (O2)) Device LITER MINDY.CANULA CONTINUOUS for Prevent Hypoxemia, #2 Oxygen Concentrator Portable Gaseous 2 L/min via Nasal Canula Continuous For 99 months Changed Medications: Prednisone (21) 10 mg tab Dose Pack (Prednisone (21) 10 mg tab Dose Pack) 10 Mg Pack 10 MG PO DIRECTED for Inflammation, #1 DSPK 0 Refills (Changed from: Prednisone 5 Mg Tab 5 Mg PO DAILY Ref 0) Continued Medications: Acetaminophen (Tylenol) 325 Mg Tab 500 MG PO Q6H PRN for PAIN 1 TO 10 AND/OR AGITATION, TAB 0 Refills Budesonide-Formoterol Inh (Symbicort Inh) 160-4.5 Mcg/Act Aero 1 PUFF INH Q12HR, #1 INHALER 0 Refills Calcium Carbonate-Cholecalciferol (Calcium 500 +D) 500-400 Mg-Unit Tab 1 TAB PO TID for Calcium Supplement, TAB 0 Refills Ferrous Sulfate (Ferrous Sulfate) 325 Mg (65 Mg Iron) Tablet 325 MG PO TIDPC for Nutritional Supplement, #90 TAB 0 Refills Furosemide (Lasix) 20 Mg Tab 20 MG PO DAILY, #30 TAB 0 Refills Glipizide (Glipizide) 5 Mg Tab 5 MG PO DAILY for Blood Sugar Management, #30 TAB 0 Refills Take 30 minutes before a meal Multivitamin (Mvd-Wlrezz-Rfbgc) 1 Each Tablet Omeprazole (Omeprazole) 20 Mg Tab 20 MG PO DAILY, #30 TAB 0 Refills Repaglinide (Repaglinide) 2 Mg Tab 2 MG PO TIDAC for Blood Sugar Management, #90 TAB 0 Refills Sennosides-Docusate Sodium (Senna Plus 8.6-50 mg) 8.6 Mg-50 Mg Tab Simvastatin (Simvastatin) 40 Mg Tab 40 MG PO HS for Cholesterol Management, #30 TAB 0 Refills Discontinued Medications: Furosemide (Lasix) 40 Mg Tab 40 MG PO DAILY, #30 TAB 0 Refills Potassium Chloride ER (Potassium Chloride ER) 10 Meq Cap 10 MEQ PO DAILY for Electrolyte Replacement, #30 CAP 0 Refills Ann-Marie Andrade MD Mar 23, 2017 12:36
--- NOTE | 2017-03-23 12:38 | HHI.FF ---
Face to Face Verification Diagnosis: (1) DM (diabetes mellitus) (2) HTN (hypertension) (3) COPD (chronic obstructive pulmonary disease) (4) HCAP (healthcare-associated pneumonia) Physical Therapy Order: Evaluate and Treat, Improve ambulation, Strength and gait training Home Health Nursing Order: Medical education Signs/symptoms of disease process Oxygen administration education Medication education-adverse effect Nursing assessment with vital signs I have seen patient Isabela Millan on 03/23/17. My clinical findings support the need for the requested home health care services because: Ltd mobility - disease progression Patient has SOB Deconditioned w/ increased weakness I certify that my clinical findings support that this patient is homebound because: Hx COPD- exertion dyspnea/weakness Ann-Marie Andrade MD Mar 23, 2017 12:38
[2017-03-23] MEDS ORDERED: OXYGENDME NAS.CANULA (13:51)
--- NOTE | 2017-03-23 14:40 | ECHRPT ---
Indication: Heart Failure CONCLUSIONS Normal left ventricular size. Mild concentric left ventricular hypertrophy. Severe mitral annular calcification. Aortic valve sclerosis is present. There is moderate tricuspid regurgitation. There is estimated severe pulmonary hypertension present ( 74 mmHg). BP: / HR: Rhythm: MEASUREMENTS (Male / Female) Normal Values Technical Quality: 2D ECHO LV Diastolic Diameter PLAX 3.3 cm 4.2 - 5.9 / 3.9 - 5.3 cm LV Systolic Diameter PLAX 2.5 cm IVS Diastolic Thickness 1.2 cm 0.6 - 1.0 / 0.6 - 0.9 cm LVPW Diastolic Thickness 0.5 cm 0.6 - 1.0 / 0.6 - 0.9 cm LV Relative Wall Thickness 0.5 RV Internal Dim ED PLAX 1.9 cm M-MODE Aortic Root Diameter MM 3.3 cm AV Cusp Separation MM 1.6 cm DOPPLER AV Peak Velocity 193.0 cm/s AV Peak Gradient 14.9 mmHg MV Peak Velocity 192.5 cm/s MV Peak Gradient 14.8 mmHg MV Mean Velocity 106.0 cm/s MV Mean Gradient 5.5 mmHg MV Area PHT 3.9 cm Mitral E Point Velocity 112.0 cm/s Mitral A Point Velocity 158.0 cm/s Mitral E to A Ratio 0.7 TR Peak Velocity 415.0 cm/s TR Peak Gradient 68.9 mmHg Right Atrial Pressure 5.0 mmHg Pulmonary Artery Systolic Pressu 73.9 mmHg Right Ventricular Systolic Press 73.9 mmHg FINDINGS LEFT VENTRICLE Normal left ventricular size. Mild concentric left ventricular hypertrophy. The left ventricular systolic function is normal with an estimated ejection fraction in the range of 60-65%. RIGHT VENTRICLE Normal right ventricular size and systolic function. LEFT ATRIUM The left atrial size is normal. RIGHT ATRIUM The right atrial size is normal. ATRIAL SEPTUM Normal atrial septal thickness without atrial level shunting by limited color doppler interrogation. AORTA The aortic root and proximal ascending aorta are normal in size on limited imaging. MITRAL VALVE Severe mitral annular calcification. AORTIC VALVE Aortic valve sclerosis is present. Trileaflet aortic valve. No aortic valve stenosis or regurgitation. TRICUSPID VALVE There is moderate tricuspid regurgitation. There is estimated severe pulmonary hypertension present ( 74 mmHg). PULMONARY VALVE No pulmonary valve regurgitation or stenosis. VESSELS The inferior vena cava is normal in size. PERICARDIUM No pericardial effusion. Daljit Vásquez MD (Electronically Signed) Final Date:23 March 2017 14:39
[2017-03-23 16:11] LABS: HEMOGLOBIN A1C 7.3 % (4.3-6.0)
== END 2017-03-23 17:45 | disposition home health service (06) | DRG 189 ==
LOC: NEPC 11:49 → NEDA 15:39 → HCVI 17:36 → N04B 03-20 23:54
PROVIDERS: ADMIT Family Medicine; ATTEND Family Medicine
PROC: 5A09357 Assistance with Respiratory Ventilation, Less than 24 Consecutive Hours, Continuous Positive Airway Pressure (ICD-10-PCS; principal; 2017-03-18)
DX: J96.21 Acute and chronic respiratory failure with hypoxia (principal); J18.9 Pneumonia, unspecified organism; I13.0 Hypertensive heart and chronic kidney disease with heart failure and stage 1 through stage 4 chronic kidney disease, or unspecified chronic kidney disease; J44.0 Chronic obstructive pulmonary disease with (acute) lower respiratory infection; I50.9 Heart failure, unspecified; E11.22 Type 2 diabetes mellitus with diabetic chronic kidney disease; E11.65 Type 2 diabetes mellitus with hyperglycemia; J44.1 Chronic obstructive pulmonary disease with (acute) exacerbation; J96.22 Acute and chronic respiratory failure with hypercapnia; N18.3 Chronic kidney disease, stage 3 (moderate); Y95 Nosocomial condition; Z96.643 Presence of artificial hip joint, bilateral; T38.0X5A Adverse effect of glucocorticoids and synthetic analogues, initial encounter; K21.9 Gastro-esophageal reflux disease without esophagitis; F79 Unspecified intellectual disabilities; I25.10 Atherosclerotic heart disease of native coronary artery without angina pectoris; E78.5 Hyperlipidemia, unspecified; I45.4 Nonspecific intraventricular block; M19.90 Unspecified osteoarthritis, unspecified site; D50.9 Iron deficiency anemia, unspecified; Z79.52 Long term (current) use of systemic steroids; Z79.84 Long term (current) use of oral hypoglycemic drugs
CPT/HCPCS: 36600; 71010; 80048; 80053; 81001; 82550; 82552; 82805; 82948; 83036; 83735; 83880; 84100; 84145; 84484; 85007; 85025; 85027; 85610; 85730; 87040; 87641; 87804; 93005; 93306; 93970; 94002; 94003; 94618; 94640; 94664; 96374; J1650; J1815; J1940; J1956; J2920; J2930; J3370; J7050; J7512; J7626

== ENCOUNTER 2017-07-07 21:23 | Inpatient (IN) | payer MEDICARE, MEDICAID ==
[~2017-07-07] VITALS: Ht 144.8 cm; Wt 62.4 kg
[~2017-07-07 21:23] MED LIST changes: -ALBU0.086 INH; -BUDE.5I INH; +CALC1TAB12 PO; -CALC200S; -CALC500T19 PO; -CENTRAL VITE; -DUONSOL2 NEB; -FERR324T4 PO; +FERR325T18 PO; +FURO1TAB62 PO; -FURO20TA PO; -GLIP5 PO; +GLIP5TAB8 PO; -HYDR-3580 PO; +LEVO750T3 PO; +MULTTAB68; +OMEP20TA93 PO; +OXYGENDME NAS.CANULA; +PRED10PA PO; -PRIL20CA PO; +REPA1TAB10 PO; +SENN1TAB; -SIMV10TA OR; +SIMV40TA PO; +SYMB160A INH; +TYLE325T PO; -TYLE500T PO; -Z.0.OXYGEN INH; -multivitamins
[2017-07-07 21:32] VITALS: BP 169/88; PULSE 107; RESP 22; TEMP 98.2; O2SAT 84
[2017-07-07 21:42] VITALS: RESP 22; O2SAT 100
--- NOTE | 2017-07-07 21:43 | PD ---
HPI . resp distress Chief Complaint: Respiratory Distress Time Seen by Provider: 21:38 Travel History International Travel<30 days: No Contact w/Intl Traveler<30days: No Traveled to known affect area: No History of Present Illness HPI Patient is a 82-year-old female who for the last few days has had shortness of breath progressively getting worse she has a history of COPD as well as CHF.. she has been taking her medications she has not missed any doses .. she had been admitted not too long ago for pneumonia... patient was doing better , until last few days when suddenly she got much worse. Patient is talking in short sentences she is descending to 84% on room air. Placed on 3 L she is now satting 100% she is tachypneic . BP is mildly elevated at 167 systolic, pt has hx of COPD. pt and neice deny CP denies Syncope . Hx limited due to her Resp distress ROS AND HPI limited PFSH Past Medical History Arthritis: Yes Asthma: Yes Autoimmune Disease: No Blood Disorders: No Cancer: No Cardiovascular Problems: Yes Congestive Heart Failure: Yes COPD: Yes Cerebrovascular Accident: No Coronary Artery Disease: Yes Dementia: Yes Diabetes: Yes Patient Takes Glucophage: Yes Diminished Hearing: No Endocrine: Yes Gastrointestinal Disorders: Yes GERD: Yes Glaucoma: No Genitourinary: No Headaches: No Hepatitis: No Hiatal Hernia: No Hypertension: Yes Immune Disorder: No Implanted Vascular Access Dvce: Yes Kidney Stones: No Musculoskeletal: Yes (OSTEROPOROSIS) Neurologic: No Psychiatric: No Reproductive: No Respiratory: Yes (COPD) Migraines: No Seizures: No Sleep Apnea: No Ulcer: No PNEUMOCCOCAL Vaccine (Year): 1997 Menopausal: Yes Past Surgical History Abdominal Surgery: No Appendectomy: No Cardiac Surgery: No Ear Surgery: No Endocrine Surgery: No Eye Surgery: Yes Genitourinary Surgery: No Gynecologic Surgery: No Joint Replacement: Yes Oral Surgery: No Pacemaker: No Thoracic Surgery: No Other Surgery: Yes (2 HIP REPLACEMENTS 2002) Social History Alcohol Use: No Tobacco Use: No Substance Use: No Allergies-Medications (Allergen,Severity, Reaction): Coded Allergies: cephalexin (Unverified Allergy, Intermediate, Anaphylaxis, 07/07/17) Reported Meds & Prescriptions Reported Meds & Active Scripts Active Oxygen (O2) Device Liter MINDY.CANULA CONTINUOUS Oxygen Concentrator Portable Gaseous 2 L/min via Nasal Canula Continuous For 99 months Reported Duoneb (Ipratropium-Albuterol Neb) 0.5-2.5 Mg/3 Ml Neb 1 Nebule INH Q6HR NEB Loperamide (Loperamide HCl) 2 Mg Cap 2 Mg PO DIRECTED PRN One capsule after each loose stool. Not to exceed 8 capsules per day. Tussin Dm Max Adult Liq (Dextromethorphan-Guaifenesin Liq) 10-200 Mg/5 Ml Liq 5 Ml PO Q4H PRN Potassium Chloride ER (Potassium Chloride) 10 Meq Cap 10 Meq PO DAILY Furosemide 40 Mg Tab 40 Mg PO DAILY Tylenol (Acetaminophen) 325 Mg Tab 500 Mg PO Q6H PRN Ferrous Sulfate 325 Mg (65 Mg Iron) Tablet 325 Mg PO TIDPC Repaglinide 2 Mg Tab 2 Mg PO TIDAC Omeprazole 20 Mg Tab 20 Mg PO DAILY Lasix (Furosemide) 20 Mg Tab 20 Mg PO DAILY Symbicort Inh (Budesonide/Formoterol Fumarate) 160-4.5 Mcg/Act Aero 1 Puff INH Q12HR Simvastatin 40 Mg Tab 40 Mg PO HS Glipizide 5 Mg Tab 5 Mg PO DAILY Take 30 minutes before a meal Calcium 500 +D (Calcium Carbonate-Cholecalciferol) 500-400 Mg-Unit Tab 1 Tab PO TID Ahs-Jwzfbe-Xeeat (Multivitamin) 1 Each Tablet Physical Exam Narrative GENERAL: leaning forward and RR increase and in resp distress desaturation on RA to 84%o2 SKIN: Warm and dry. HEAD: Atraumatic. Normocephalic. EYES: Pupils equal and round. No scleral icterus. No injection or drainage. ENT: No nasal bleeding or discharge. Mucous membranes pink and moist. NECK: Trachea midline. No JVD. CARDIOVASCULAR: Regular rate and rhythm. RESPIRATORY: + accessory muscle use.+ Distress DIFFUSE WHEEZE IN ALL cheema ..no obvious rales heard GASTROINTESTINAL: Abdomen soft, non-tender, nondistended. Hepatic and splenic margins not palpable. MUSCULOSKELETAL: Extremities without clubbing, cyanosis, or edema. No obvious deformities. NEUROLOGICAL: Awake and alert. No obvious cranial nerve deficits. Motor grossly within normal limits. Five out of 5 muscle strength in the arms and legs. Normal speech. PSYCHIATRIC: Appropriate mood and affect; insight and judgment normal. Data Data Last Documented VS Vital Signs Date Time Temp Pulse Resp B/P (MAP) Pulse Ox O2 Delivery O2 Flow Rate FiO2 07/07/17 22:40 97 BiPAP 50 07/07/17 21:42 22 4.00 07/07/17 21:32 98.2 107 169/88 (115) Orders Orders Complete Blood Count With Diff (07/07/17 21:38) Comprehensive Metabolic Panel (07/07/17 21:38) B-Type Natriuretic Peptide (07/07/17 21:38) Ckmb (Isoenzyme) Profile (07/07/17 21:38) Troponin I (07/07/17 21:38) Urinalysis - C+S If Indicated (07/07/17 21:38) Blood Culture (07/07/17 21:38) Iv Access Insert/Monitor (07/07/17 21:38) Ecg Monitoring (07/07/17 21:38) Oximetry (07/07/17 21:38) Oxygen Administration (07/07/17 21:38) Chest, Single Ap (07/07/17 21:38) Sodium Chloride 0.9% Flush (Ns Flush) (07/07/17 21:45) Methylprednisolone So Succ Inj (Solumedr (07/07/17 21:45) Albuterol-Ipratropium Neb (Duoneb Neb) (07/07/17 21:45) Furosemide Inj (Lasix Inj) (07/07/17 21:45) Resp Bipap / Cpap Non Invas Vt (07/07/17 ) Levofloxacin 750 Mg Premix Inj (Levaquin (07/07/17 22:00) Urinary Catheter Management ALBERTO.Q8H (07/07/17 22:19) CKMB (07/07/17 21:45) CKMB% (07/07/17 21:45) Nitroglycerin 2% Oint (Nitroglycerin 2% (07/07/17 22:45) Arterial Blood Gas (Abg) (07/07/17 ) Admit Order (Ed Use Only) (07/07/17 23:31) Labs Laboratory Tests Test 07/07/17 21:45 07/07/17 22:00 07/07/17 23:30 White Blood Count 15.3 TH/MM3 Red Blood Count 3.64 MIL/MM3 Hemoglobin 11.4 GM/DL Hematocrit 34.6 % Mean Corpuscular Volume 95.0 FL Mean Corpuscular Hemoglobin 31.4 PG Mean Corpuscular Hemoglobin Concent 33.1 % Red Cell Distribution Width 14.2 % Platelet Count 194 TH/MM3 Mean Platelet Volume 8.4 FL Neutrophils (%) (Auto) 86.2 % Lymphocytes (%) (Auto) 4.9 % Monocytes (%) (Auto) 8.6 % Eosinophils (%) (Auto) 0.1 % Basophils (%) (Auto) 0.2 % Neutrophils # (Auto) 13.2 TH/MM3 Lymphocytes # (Auto) 0.7 TH/MM3 Monocytes # (Auto) 1.3 TH/MM3 Eosinophils # (Auto) 0.0 TH/MM3 Basophils # (Auto) 0.0 TH/MM3 CBC Comment DIFF FINAL Differential Comment Blood Urea Nitrogen 25 MG/DL Creatinine 1.17 MG/DL Random Glucose 206 MG/DL Total Protein 7.3 GM/DL Albumin 3.2 GM/DL Calcium Level 8.9 MG/DL Alkaline Phosphatase 83 U/L Aspartate Amino Transf (AST/SGOT) 21 U/L Alanine Aminotransferase (ALT/SGPT) 28 U/L Total Bilirubin 0.4 MG/DL Sodium Level 135 MEQ/L Potassium Level 3.8 MEQ/L Chloride Level 97 MEQ/L Carbon Dioxide Level 31.2 MEQ/L Anion Gap 7 MEQ/L Estimat Glomerular Filtration Rate 44 ML/MIN Total Creatine Kinase 109 U/L Creatine Kinase MB 1.7 NG/ML Troponin I 0.10 NG/ML B-Type Natriuretic Peptide 124 PG/ML Urine Color YELLOW Urine Turbidity CLEAR Urine pH 5.5 Urine Specific [place] 1.012 Urine Protein TRACE mg/dL Urine Glucose (UA) NEG mg/dL Urine Ketones NEG mg/dL Urine Occult Blood NEG Urine Nitrite NEG Urine Bilirubin NEG Urine Urobilinogen LESS THAN 2.0 MG/DL Urine Leukocyte Esterase NEG Urine RBC 1 /hpf Urine WBC 1 /hpf Urine Bacteria RARE /hpf Urine Hyaline Casts 7 /lpf Urine Mucus FEW /lpf Microscopic Urinalysis Comment CULT NOT INDICATED Blood Gas Puncture Site RT RADIAL Blood Gas Patient Temperature 98.6 Blood Gas HCO3 30 mmol/L Blood Gas Base Excess 5.8 mmol/L Blood Gas Oxygen Saturation 97 % Arterial Blood pH 7.41 Arterial Blood Partial Pressure CO2 49 mmHg Arterial Blood Partial Pressure O2 116 mmHG Arterial Blood Oxygen Content 15.4 Vol % Arterial Blood Carboxyhemoglobin 1.2 % Arterial Blood Methemoglobin 0.6 % Blood Gas Hemoglobin 11.2 G/DL Oxygen Delivery Device BIPAP Blood Gas Ventilator Setting IPAP=10 EPAP=5 Blood Gas Inspired Oxygen 50 % MDM Medical Decision Making Medical Screen Exam Complete: Yes Emergency Medical Condition: Yes Differential Diagnosis COpd vs CHF vs PNA vs pleural effusion vs other Narrative Course pt given Solumedrol and Levaquin and DUONEBS and Bipapa and CXR , she is stablized on Bipap and I also given her small dose of lasix and Nitro Paste and ASA 162 , Trop 0.1 EKG RBBB pt improves with above treatment and then admitted to Step down on BiPAP Critical Care Narrative 30 minutes of resp distress critical care time to stabilize and BiPAP Diagnosis Primary Impression: COPD (chronic obstructive pulmonary disease) Qualified Codes: J44.9 - Chronic obstructive pulmonary disease, unspecified Additional Impressions: CHF (congestive heart failure) Qualified Codes: I50.9 - Heart failure, unspecified Respiratory distress Admitting Information Admitting Physician Requests: Admit Scripts Prednisone (Prednisone) 20 Mg Tab 20 MG PO DIRECTED for COPD for 5 Days, TAB 0 Refills Take 60 MG daily x 4 days, then 40 MG x 4 days, then 20 MG daily x 4 days. Prov: Lukas Briceno MD 07/11/17 Glipizide (Glipizide) 10 Mg Tab 10 MG PO DAILYAC for DM for 30 Days, TAB Take 30 minutes before a meal Prov: Lukas Briceno MD 07/11/17 [Albuterol-Ipratropium Neb] 1 AMPULE NEBU No Conflict Check 1 AMPULE NEB Q4HR WHILE AWAKE NEB for COPD Prov: Lukas Briceno MD 07/11/17 Levofloxacin (Levaquin) 500 Mg Tablet 500 MG PO DAILY for PNA for 2 Days, #2 TAB Prov: Lukas Briceno MD 07/11/17 Chris Garcia MD Jul 07, 2017 21:43
[2017-07-07] MEDS ORDERED: FUROSEMIDE 20 MG/2 ML VIAL IVP ONE (21:45)
[2017-07-07] MEDS ORDERED: SODIUM CHLORIDE 0.9% FLUSH 10 ML FLUSH IVF PRN (21:45)
[2017-07-07] MEDS ORDERED: methylPREDNISolone SOD SUCC 125 MG/2 ML VIAL IV PUSH ONE (21:45)
[2017-07-07] MEDS: RESP: ALBUTEROL 2.5 MG/IPRATROPIUM 0.5 MG NEB (SCH) INH ×3 (21:45→22:15)
[2017-07-07 21:48] VITALS: O2SAT 96
[2017-07-07] MEDS ORDERED: PRED5TAB PO (21:56)
[2017-07-07] MEDS ORDERED: FURO40TA PO (21:56)
[2017-07-07] MEDS ORDERED: LOPE2CAP PO (21:56)
[2017-07-07] MEDS ORDERED: POTA10CA PO (21:56)
[2017-07-07] MEDS ORDERED: IPRASOL INH (21:56)
[2017-07-07] MEDS ORDERED: DEXT5LIQ12 PO (21:56)
[2017-07-07] MEDS ORDERED: LEVOFLOXACIN 750 MG PREMIX INJ 150 ML IV ONE (22:00)
[2017-07-07 22:06] LABS: AUTOMATED NEUTROPHIL # 13.2 TH/MM3 (1.8-7.7); BASOPHIL % 0.2 % (0.0-2.0); EOSINOPHIL % 0.1 % (0.0-4.0); HEMATOCRIT 34.6 % (35.0-46.0); HEMOGLOBIN 11.4 GM/DL (11.6-15.3); LYMPH % 4.9 % (9.0-44.0); LYMPHOCYTE # 0.7 TH/MM3 (1.0-4.8); MEAN CORPUSCULAR HEMOGLOBIN 31.4 PG (27.0-34.0); MEAN CORPUSCULAR HGB CONC 33.1 % (32.0-36.0); MEAN PLATELET VOLUME 8.4 FL (7.0-11.0); MONO % 8.6 % (0.0-8.0); MONOCYTE # 1.3 TH/MM3 (0-0.9); NEUT % 86.2 % (16.0-70.0); PLATELET COUNT 194 TH/MM3 (150-450); RED BLOOD COUNT 3.64 MIL/MM3 (4.00-5.30); RED CELL DISTRIBUTION WIDTH 14.2 % (11.6-17.2); WHITE BLOOD COUNT 15.3 TH/MM3 (4.0-11.0)
[2017-07-07 22:20] LABS: ALT (GPT) 28 U/L (10-53)
[2017-07-07 22:24] LABS: ALBUMIN 3.2 GM/DL (3.4-5.0); ALKALINE PHOSPHATASE 83 U/L (45-117); AST (GOT) 21 U/L (15-37); BICARBONATE 31.2 MEQ/L (21.0-32.0); BLOOD UREA NITROGEN 25 MG/DL (7-18); CALCIUM 8.9 MG/DL (8.5-10.1); CHLORIDE 97 MEQ/L (98-107); CREATININE 1.17 MG/DL (0.50-1.00); GLOMERULAR FILTRATION RATE 44 ML/MIN (>89); GLUCOSE,RANDOM 206 MG/DL (74-106); SODIUM (NA) 135 MEQ/L (136-145); TOTAL BILIRUBIN ADULT 0.4 MG/DL (0.2-1.0); TOTAL PROTEIN 7.3 GM/DL (6.4-8.2)
[2017-07-07 22:28] LABS: BACTERIA, URINE RARE /hpf; BILIRUBIN, URINE NEG (NEG); BLOOD, URINE NEG (NEG); GLUCOSE,URINE NEG (NEG); HYALINE CAST, URINE 7 /lpf (RARE); KETONE, URINE NEG (NEG); MUCUS URINE FEW /lpf (OCC); NITRITE,URINE NEG (NEG); PH, URINE 5.5 (5.0-8.5); URINE COLOR YELLOW (YELLW/STRAW); URINE LEUKOCYTE ESTERASE NEG (NEG)
[2017-07-07] MEDS ORDERED: NITROGLYCERIN 2% OINT 1 GM PACKET TOPICAL ONE (22:45)
--- NOTE | 2017-07-07 23:02 | RADRPT ---
EXAM DATE/TIME: 07/07/2017 21:52 [facility] COMPARISON: CHEST SINGLE AP, March 19, 2017, 3:26. INDICATIONS : Shortness of breath MEDICAL HISTORY : Chronic obstructive pulmonary disease. Congestive heart failure. Gastroesophageal reflux disease. Gabriella betes Asthma SURGICAL HISTORY : Bilateral hip replacements ENCOUNTER: Initial ACUITY: 1 day PAIN SCORE: Non-responsive. LOCATION: Bilateral chest FINDINGS: The heart size is normal. There is increased interstitial markings particularly in the perihilar sanya ons. There is increased density at the left base. Significant effusions are not seen. Chronic changes seen at the glenohumeral joints being worse on the right. The patient is status post vertebroplasty at the upper lumbar spine. CONCLUSION: 1. Increased prominence of the hilar regions and increased interstitial markings in the perihilar reg ions likely related to pulmonary venous hypertension or mild edema. 2. Consolidation or atelectasis at the left base. Bhavesh Goldberg MD on July 07, 2017 at 22:58 Board Certified Radiologist. This report was verified electronically.
[2017-07-07 23:41] VITALS: BP 142/58; PULSE 99; RESP 16; O2SAT 97
[2017-07-07] MEDS ORDERED: MAGNESIUM HYDROXIDE SUSP 30 ML CUP PO PRN (23:45)
[2017-07-07] MEDS ORDERED: MORPHINE SULFATE 2 MG/ML SYRINGE IV PUSH PRN (23:45)
[2017-07-07] MEDS ORDERED: BISACODYL 10 MG SUPP RECTAL PRN (23:45)
[2017-07-07] MEDS ORDERED: ACETAMINOPHEN 325 MG TAB PO PRN (23:45)
[2017-07-07] MEDS ORDERED: DEXTROSE 50% IN WATER 50 ML VIAL(D50) IV PUSH PRN (23:45)
[2017-07-07] MEDS ORDERED: ACETAMINOPHEN/HYDROcodone 325 MG/5 MG TAB PO PRN (23:45)
[2017-07-07] MEDS ORDERED: RESP: ALBUTEROL 2.5 MG/IPRATROPIUM 0.5 MG NEB (PRN) NEB (23:45)
[2017-07-07] MEDS ORDERED: LACTULOSE SYRUP 20 GM/30 ML CUP PO PRN (23:45)
[2017-07-07] MEDS ORDERED: SENNOSIDES 8.6 MG TAB PO PRN (23:45)
[2017-07-07] MEDS ORDERED: SODIUM CHLORIDE 0.9% FLUSH 10 ML FLUSH IV FLUSH PRN (23:45)
[2017-07-07] MEDS ORDERED: GLUCAGON 1 MG/ML VIAL OTHER PRN (23:45)
[2017-07-07] MEDS ORDERED: ONDANSETRON HCL 4 MG/2 ML VIAL IVP PRN (23:45)
--- NOTE | 2017-07-07 23:48 | HHI.HP ---
[facility] Primary Care Physician Chaitanya Cardenas MD Admission Diagnosis RESP Failure COPD CHF on BiPAP Diagnoses: (1) COPD (chronic obstructive pulmonary disease) Diagnosis: Principal (2) Hypoxia Diagnosis: Principal (3) Elevated troponin Diagnosis: Principal (4) CHF (congestive heart failure) Diagnosis: Principal (5) PNA (pneumonia) Diagnosis: Principal (6) DM (diabetes mellitus) Diagnosis: Principal Travel History International Travel<30 Days: No Contact w/Intl Traveler <30 Da: No Traveled to Known Affected Are: No History of Present Illness This is an 82-year-old female with a PMH of Mental Retardation, COPD, CHF (Echo 03/23/2017 with EF 60-65% and Severe Pulm HTN 74mmHg), DM and Dementia who was sent to the ER from SNF secondary to hypoxia and SOB. Pt unable to provide much history. Niece at bedside states pt doesn't usually complain, however today said she was having difficulty breathing. No apparent fever, cough or sick contacts. On arrival, O2 sat 84% on RA, noted to have significant work of breathing, started on BIPAP in ER. BP 169/80, HR 107, O2 sat 99% on BiPAP 50% FiO2, Afebrile. WBC 15.3. Creatinine 1.17, previously 1.13 on 03/22/2017. Troponin 0.10. No complaints of chest pain. UA negative for UTI. CXR with increased prominent hilar regions and increased interstitial markings perihilar regions likely related to pulmonary venous hypertension or edema, consolidation at left base. Review of Systems Except as stated in HPI: all other systems reviewed are Neg ROS: 14 point review of systems otherwise negative. Past Family Social History Past Medical History PMH: Mental Retardation, COPD, CHF (Echo 03/23/2017 with EF 60-65% and Severe Pulm HTN 74mmHg), DM and Dementia Past Surgical History PAST SURGICAL HISTORY: Hip Replacement Allergies: Coded Allergies: cephalexin (Unverified Allergy, Intermediate, Anaphylaxis, 07/07/17) Family History PAST FAMILY HISTORY: Reviewed. No h/o DM or CAD Social History PAST SOCIAL HISTORY: Negative for alcohol, tobacco or drugs. Physical Exam Vital Signs Vital Signs Date Time Temp Pulse Resp B/P (MAP) Pulse Ox O2 Delivery O2 Flow Rate FiO2 07/07/17 23:41 99 16 142/58 (86) 97 BiPAP 50 07/07/17 22:40 97 BiPAP 50 07/07/17 21:48 96 50 07/07/17 21:45 99 BiPAP 50 07/07/17 21:42 22 100 Nasal Cannula 4.00 07/07/17 21:42 100 Nasal Cannula 4.00 07/07/17 21:32 98.2 107 22 169/88 (115) 84 Physical Exam PE: GENERAL: Very pleasant elderly white female in no acute distress, appears younger than stated age. On BiPAP. Niece at bedside. HEENT: PERRLA, EOMI. No scleral icterus or conjunctival pallor. No lid lag or facial droop. CARDIOVASCULAR: Regular rate and rhythm. No obvious murmurs to auscultation. No chest tenderness to palpation. RESPIRATORY: No obvious rhonchi or wheezing. Clear to auscultation. Breath sounds equal bilaterally. GASTROINTESTINAL: Abdomen soft, non-tender, nondistended. BS normal. MUSCULOSKELETAL: Extremities without clubbing, cyanosis, or edema. No obvious deformities. NEUROLOGICAL: Awake, alert. No focal neurologic deficits. Moving both upper and lower extremities spontaneously. Laboratory Laboratory Tests Test 07/07/17 21:45 07/07/17 22:00 White Blood Count 15.3 Red Blood Count 3.64 Hemoglobin 11.4 Hematocrit 34.6 Mean Corpuscular Volume 95.0 Mean Corpuscular Hemoglobin 31.4 Mean Corpuscular Hemoglobin Concent 33.1 Red Cell Distribution Width 14.2 Platelet Count 194 Mean Platelet Volume 8.4 Neutrophils (%) (Auto) 86.2 Lymphocytes (%) (Auto) 4.9 Monocytes (%) (Auto) 8.6 Eosinophils (%) (Auto) 0.1 Basophils (%) (Auto) 0.2 Neutrophils # (Auto) 13.2 Lymphocytes # (Auto) 0.7 Monocytes # (Auto) 1.3 Eosinophils # (Auto) 0.0 Basophils # (Auto) 0.0 CBC Comment DIFF FINAL Differential Comment Blood Urea Nitrogen 25 Creatinine 1.17 Random Glucose 206 Total Protein 7.3 Albumin 3.2 Calcium Level 8.9 Alkaline Phosphatase 83 Aspartate Amino Transf (AST/SGOT) 21 Alanine Aminotransferase (ALT/SGPT) 28 Total Bilirubin 0.4 Sodium Level 135 Potassium Level 3.8 Chloride Level 97 Carbon Dioxide Level 31.2 Anion Gap 7 Estimat Glomerular Filtration Rate 44 Total Creatine Kinase 109 Creatine Kinase MB 1.7 Troponin I 0.10 B-Type Natriuretic Peptide 124 Urine Color YELLOW Urine Turbidity CLEAR Urine pH 5.5 Urine Specific [place] 1.012 Urine Protein TRACE Urine Glucose (UA) NEG Urine Ketones NEG Urine Occult Blood NEG Urine Nitrite NEG Urine Bilirubin NEG Urine Urobilinogen LESS THAN 2.0 Urine Leukocyte Esterase NEG Urine RBC 1 Urine WBC 1 Urine Bacteria RARE Urine Hyaline Casts 7 Urine Mucus FEW Microscopic Urinalysis Comment CULT NOT INDICATED Date/Time Source Procedure Growth Status 07/07/17 21:50 Blood Peripheral Aerobic Blood Culture Pending Received 07/07/17 21:50 Blood Peripheral Anaerobic Blood Culture Pending Received Result Diagram: 07/07/[id number] Caprini VTE Risk Assessment Caprini VTE Risk Assessment: No/Low Risk (score <= 1) Caprini Risk Assessment Model Point Value = 1 Point Value = 2 Point Value = 3 Point Value = 5 Age 41-60 Minor surgery BMI > 25 kg/m2 Swollen legs Varicose veins or History of unexplained or recurrent spontaneous Oral contraceptives or hormone replacement Sepsis (< 1 month) Serious lung disease, including pneumonia (< 1 month) Abnormal pulmonary function Acute myocardial infarction Congestive heart failure (< 1 month) History of inflammatory bowel disease Medical patient at bed rest Age 61-74 Arthroscopic surgery Major open surgery (> 45 min) Laparoscopic surgery (> 45 min) Malignancy Confined to bed (> 72 hours) Immobilizing plaster cast Central venous access Age >= 75 History of VTE Family history of VTE Factor V Leiden Prothrombin [id number] Lupus anticoagulant Anticardiolipin antibodies Elevated serum homocysteine Heparin-induced thrombocytopenia Other congenital or acquired thrombophilia Stroke (< 1 month) Elective arthroplasty Hip, pelvis, or leg fracture Acute spinal cord injury (< 1 month) Prophylaxis Regimen Total Risk Factor Score Risk Level Prophylaxis Regimen 0-1 Low Early ambulation 2 Moderate Order ONE of the following: *Sequential Compression Device (SCD) *Heparin 5000 units SQ BID 3-4 Higher Order ONE of the following medications: *Heparin 5000 units SQ TID *Enoxaparin/Lovenox 40 mg SQ daily (WT < 150 kg, CrCl > 30 mL/min) *Enoxaparin/Lovenox 30 mg SQ daily (WT < 150 kg, CrCl > 10-29 mL/min) *Enoxaparin/Lovenox 30 mg SQ BID (WT < 150 kg, CrCl > 30 mL/min) AND/OR *Sequential Compression Device (SCD) 5 or more Highest Order ONE of the following medications: *Heparin 5000 units SQ TID (Preferred with Epidurals) *Enoxaparin/Lovenox 40 mg SQ daily (WT < 150 kg, CrCl > 30 mL/min) *Enoxaparin/Lovenox 30 mg SQ daily (WT < 150 kg, CrCl > 10-29 mL/min) *Enoxaparin/Lovenox 30 mg SQ BID (WT < 150 kg, CrCl > 30 mL/min) AND *Sequential Compression Device (SCD) Assessment and Plan Problem List: (1) COPD (chronic obstructive pulmonary disease) ICD Code: J44.9 - COPD (chronic obstructive pulmonary disease) Status: Chronic (2) Hypoxia ICD Code: R09.02 - Hypoxemia (3) Elevated troponin ICD Code: R74.8 - Abnormal levels of other serum enzymes (4) CHF (congestive heart failure) ICD Code: I50.9 - Heart failure, unspecified (5) PNA (pneumonia) ICD Code: J18.9 - Pneumonia, unspecified organism (6) DM (diabetes mellitus) ICD Code: E11.9 - DM (diabetes mellitus) Status: Chronic Assessment and Plan A/P: 1. COPD: Chronic Respiratory Failure w/ Acute Exacerbation. Severe. + increased work of breathing, currently on BIPAP, ABG essentially normal, will wean off BIPAP as tolerated. Continue w/ Solu-Medrol, DuoNeb q4 and q2h prn, Symbicort, Mucinex. 2. CHF: Acute on Chronic. Diastolic. Echo 03/23/17 w/ EF 60-65%, severe Pulm HTN 74mmHg, CXR w/ increased prominence hilar regions and interstitial marking likely mild edema, images reviewed by me. S/p Lasix in ER, monitor I/O, continue w/ diuresis. 3. Hypoxia: O2 sat 84% on RA upon arrival, currently 99% on BIPAP, ABG essentially normal, pt more comfortable now, will wean off BIPAP and trial NC as tolerated. Monitor O2. 4. PNA: CXR w/ consolidation at base, images reviewed by me, WBC 15, s/p Levaquin in ER, will continue w/ IV Levaquin 5. Elevated Trop: 0.10, no c/o chest pain, no acute EKG changes, likely secondary to CHF/demand from hypoxia, will check serial cardiac enzymes, ASA, Statin. Morphine prn. 6. DM: Sliding scale w/ Accu-Cheks, hold Glipizide for now. Hgb A1c 7.3 on 03/22/17 7. DVT Prophylaxis: Heparin sq 8. Social work for DC planning as needed. 9. Case discussed at length with the ER physician, lab/record/imaging reviewed by me. Physician Certification 2 Midnight Certification Type: Admission for Inpatient Services Order for Inpatient Services The services are ordered in accordance with Medicare regulations or non- Medicare payer requirements, as applicable. In the case of services not specified as inpatient-only, they are appropriately provided as inpatient services in accordance with the 2-midnight benchmark. Estimated LOS (days): 2 days is the estimated time the patient will need to remain in the hospital, assuming treatment plan goals are met and no additional complications. Post-Hospital Plan: Not yet determined Rita Simpson MD Jul 07, 2017 23:48
[2017-07-07 23:55] VITALS: O2SAT 98
[2017-07-08] VITALS (13 sets, daily range): BP systolic 107–158; BP diastolic 55–73; PULSE 78–123; RESP 16–26; TEMP 97.4–98.5; O2SAT 94–100
[2017-07-08] MEDS ORDERED: ASPIRIN 81 MG CHEW TAB CHEW ONE
[2017-07-08] MEDS: methylPREDNISolone SOD SUCC 40 MG/1 ML VIAL IV PUSH SCH ×4 (06:19→23:30)
[2017-07-08] MEDS: RESP: ALBUTEROL 2.5 MG/IPRATROPIUM 0.5 MG NEB (SCH) NEB ×4 (07:14→20:14)
[2017-07-08 07:23] LABS: AUTOMATED NEUTROPHIL # 11.4 TH/MM3 (1.8-7.7); BASOPHIL % 0.1 % (0.0-2.0); HEMATOCRIT 33.5 % (35.0-46.0); HEMOGLOBIN 10.9 GM/DL (11.6-15.3); LYMPH % 3.4 % (9.0-44.0); LYMPHOCYTE # 0.4 TH/MM3 (1.0-4.8); MEAN CELL VOLUME 95.8 FL (80.0-100.0); MEAN CORPUSCULAR HEMOGLOBIN 31.3 PG (27.0-34.0); MEAN CORPUSCULAR HGB CONC 32.7 % (32.0-36.0); MEAN PLATELET VOLUME 8.7 FL (7.0-11.0); MONO % 1.8 % (0.0-8.0); MONOCYTE # 0.2 TH/MM3 (0-0.9); NEUT % 94.7 % (16.0-70.0); PLATELET COUNT 176 TH/MM3 (150-450); RED BLOOD COUNT 3.49 MIL/MM3 (4.00-5.30); RED CELL DISTRIBUTION WIDTH 14.1 % (11.6-17.2); WHITE BLOOD COUNT 12.1 TH/MM3 (4.0-11.0)
[2017-07-08 07:45] LABS: ALBUMIN 2.8 GM/DL (3.4-5.0); ALT (GPT) 22 U/L (10-53); AST (GOT) 14 U/L (15-37); BICARBONATE 29.9 MEQ/L (21.0-32.0); BLOOD UREA NITROGEN 24 MG/DL (7-18); CALCIUM 8.8 MG/DL (8.5-10.1); CHLORIDE 100 MEQ/L (98-107); CREATININE 1.03 MG/DL (0.50-1.00); GLOMERULAR FILTRATION RATE 51 ML/MIN (>89); GLUCOSE,RANDOM 225 MG/DL (74-106); SODIUM (NA) 139 MEQ/L (136-145)
[2017-07-08 07:49] LABS: ALKALINE PHOSPHATASE 71 U/L (45-117); TOTAL BILIRUBIN ADULT 0.5 MG/DL (0.2-1.0); TOTAL PROTEIN 6.7 GM/DL (6.4-8.2); TROPONIN I 0.06 NG/ML (0.02-0.05)
[2017-07-08] MEDS: guaiFENesin E.R. 600 MG TAB PO SCH ×2 (09:32→21:15)
[2017-07-08] MEDS: FUROSEMIDE 40 MG/4 ML VIAL IV PUSH SCH ×2 (09:32→18:16)
[2017-07-08] MEDS: HEPARIN SODIUM - SQ 10,000 UNITS/ML VIAL SQ SCH ×2 (09:32→21:15)
[2017-07-08] MEDS: PANTOPRAZOLE SOD 20 MG DELAYED RELEASE TAB PO SCH (09:33)
[2017-07-08] MEDS: glipiZIDE 5 MG TAB PO SCH (09:33)
[2017-07-08] MEDS: SODIUM CHLORIDE 0.9% FLUSH 10 ML FLUSH IV FLUSH SCH ×2 (09:33→21:15)
[2017-07-08] MEDS: ASPIRIN EC 81 MG TABEC PO SCH (09:33)
[2017-07-08] MEDS: DOCUSATE SODIUM 50 MG/SENNA 8.6 MG TAB PO SCH ×2 (09:33→21:15)
[2017-07-08] MEDS: INSULIN ASPART SUPPLEMENTAL SCALE SQ SCH ×4 (09:34→21:16)
[2017-07-08] MEDS: BUDESONIDE-FORMOTEROL 160/4.5 MCG INHALER INH SCH ×2 (10:45→21:13)
--- NOTE | 2017-07-08 12:20 | HHI.PR ---
Subjective Remarks This is a pleasant 82 y/o Female with Mental retardation, COPD, CHF Echocardiogram 03/23/17 with EF 60-65%, and Severe Pulmonary Hypertension 74mmH, DM and Dementia who was sent to the ER from SNF secondary to hypoxia and SOB. On arrival, O2 sat 84% on RA, noted to have significant work of breathing, started on BIPAP in ER. BP 169 /80, HR 107, O2 sat 99% on BiPAP 50% FiO2, Afebrile. WBC 15.3. Creatinine 1.17, previously 1.13 on 03/22/2017. Troponin 0.10. No complaints of chest pain. UA negative for UTI. CXR with increased prominent hilar regions and increased interstitial markings perihilar regions likely related to pulmonary venous hypertension or edema, consolidation at left base. 07/08: Seen in her bedroom in the presence of nurse Miss Kenny, stable no complaint, no nausea, vomit or diarrhea. continue antibiotics, and Respiratory medicines. Objective Vital Signs Date Time Temp Pulse Resp B/P (MAP) Pulse Ox O2 Delivery O2 Flow Rate FiO2 07/08/17 10:32 07/08/17 10:00 78 26 146/72 (96) 99 Nasal Cannula 4.00 07/08/17 09:00 98 25 126/62 (83) 99 Nasal Cannula 4.00 07/08/17 08:17 98.2 105 24 134/71 (92) 100 Nasal Cannula 4.00 07/08/17 07:14 97 Nasal Cannula 4.00 07/08/17 06:51 97 Nasal Cannula 2.00 07/08/17 05:15 96 16 158/73 (101) 99 Nasal Cannula 3.00 07/08/17 02:27 97 16 115/56 (75) 98 Nasal Cannula 3.00 07/08/17 02:24 99 Nasal Cannula 3.00 07/08/17 02:15 98 Nasal Cannula 3.00 07/07/17 23:55 98 50 07/07/17 23:41 99 16 142/58 (86) 97 BiPAP 50 07/07/17 22:40 97 BiPAP 50 07/07/17 21:48 96 50 07/07/17 21:45 99 BiPAP 50 07/07/17 21:42 22 100 Nasal Cannula 4.00 07/07/17 21:42 100 Nasal Cannula 4.00 07/07/17 21:32 98.2 107 22 169/88 (541) 84 I/O 07/07/17 07/07/17 07/07/17 07/08/17 07/08/17 07/08/17 07:00 15:00 23:00 07:00 15:00 23:00 Output Total 1050 ml Balance -1050 ml Output Urine Total 1050 ml # Voids 1 Result Diagram: 07/08/17 0700 07/08/17 0700 Imaging Last Impressions Chest X-Ray 07/07/[id number] Signed Impressions: Service Date/Time: Friday, July 07, 2017 21:52 - CONCLUSION: 1. Increased prominence of the hilar regions and increased interstitial markings in the perihilar regions likely related to pulmonary venous hypertension or mild edema. 2. Consolidation or atelectasis at the left base. Bhavesh Goldberg MD Procedures None Other Results Laboratory Tests Test 07/07/17 21:45 07/07/17 22:00 07/07/17 23:30 07/08/17 07:00 Total Creatine Kinase 109 U/L Creatine Kinase MB 1.7 NG/ML B-Type Natriuretic Peptide 124 PG/ML Urine Color YELLOW Urine Turbidity CLEAR Urine pH 5.5 Urine Specific [place] 1.012 Urine Protein TRACE mg/dL Urine Glucose (UA) NEG mg/dL Urine Ketones NEG mg/dL Urine Occult Blood NEG Urine Nitrite NEG Urine Bilirubin NEG Urine Urobilinogen LESS THAN 2.0 MG/DL Urine Leukocyte Esterase NEG Urine RBC 1 /hpf Urine WBC 1 /hpf Urine Bacteria RARE /hpf Urine Hyaline Casts 7 /lpf Urine Mucus FEW /lpf Microscopic Urinalysis Comment CULT NOT INDICATED Blood Gas Puncture Site RT RADIAL Blood Gas Patient Temperature 98.6 Blood Gas HCO3 30 mmol/L Blood Gas Base Excess 5.8 mmol/L Blood Gas Oxygen Saturation 97 % Arterial Blood pH 7.41 Arterial Blood Partial Pressure CO2 49 mmHg Arterial Blood Partial Pressure O2 116 mmHG Arterial Blood Oxygen Content 15.4 Vol % Arterial Blood Carboxyhemoglobin 1.2 % Arterial Blood Methemoglobin 0.6 % Blood Gas Hemoglobin 11.2 G/DL Oxygen Delivery Device BIPAP Blood Gas Ventilator Setting IPAP=10 EPAP=5 Blood Gas Inspired Oxygen 50 % White Blood Count 12.1 TH/MM3 Red Blood Count 3.49 MIL/MM3 Hemoglobin 10.9 GM/DL Hematocrit 33.5 % Mean Corpuscular Volume 95.8 FL Mean Corpuscular Hemoglobin 31.3 PG Mean Corpuscular Hemoglobin Concent 32.7 % Red Cell Distribution Width 14.1 % Platelet Count 176 TH/MM3 Mean Platelet Volume 8.7 FL Neutrophils (%) (Auto) 94.7 % Lymphocytes (%) (Auto) 3.4 % Monocytes (%) (Auto) 1.8 % Eosinophils (%) (Auto) 0.0 % Basophils (%) (Auto) 0.1 % Neutrophils # (Auto) 11.4 TH/MM3 Lymphocytes # (Auto) 0.4 TH/MM3 Monocytes # (Auto) 0.2 TH/MM3 Eosinophils # (Auto) 0.0 TH/MM3 Basophils # (Auto) 0.0 TH/MM3 CBC Comment DIFF FINAL Differential Comment Blood Urea Nitrogen 24 MG/DL Creatinine 1.03 MG/DL Random Glucose 225 MG/DL Total Protein 6.7 GM/DL Albumin 2.8 GM/DL Calcium Level 8.8 MG/DL Alkaline Phosphatase 71 U/L Aspartate Amino Transf (AST/SGOT) 14 U/L Alanine Aminotransferase (ALT/SGPT) 22 U/L Total Bilirubin 0.5 MG/DL Sodium Level 139 MEQ/L Potassium Level 4.5 MEQ/L Chloride Level 100 MEQ/L Carbon Dioxide Level 29.9 MEQ/L Anion Gap 9 MEQ/L Estimat Glomerular Filtration Rate 51 ML/MIN Troponin I 0.06 NG/ML Objective Remarks GENERAL: no acute distress. HEENT: PERRLA, EOMI. No scleral icterus or conjunctival pallor. No lid lag or facial droop. CARDIOVASCULAR: Regular rate and rhythm. No obvious murmurs to auscultation. No chest tenderness to palpation. RESPIRATORY: No obvious rhonchi or wheezing. Clear to auscultation. Breath sounds equal bilaterally. GASTROINTESTINAL: Abdomen soft, non-tender, nondistended. BS normal. MUSCULOSKELETAL: Extremities without clubbing, cyanosis, or edema. No obvious deformities. NEUROLOGICAL: Awake, alert. No focal neurologic deficits. Moving both upper and lower extremities spontaneously. Medications and IVs Current Medications Medications (Trade) Dose Ordered Sig/Emanuel Route Start Time Stop Time Status Last Admin (NS Flush) 2 ml UNSCH PRN IVF 07/07/17 21:45 (D50w (Vial) Inj) 50 ml UNSCH PRN IV PUSH 07/07/17 23:45 (Glucagon Inj) 1 mg UNSCH PRN OTHER 07/07/17 23:45 (NovoLOG SUPPLEMENTAL SCALE) 1 ACHS SLIDING SCALE SQ 07/08/17 08:00 07/08/17 09:34 (SoluMEDROL INJ) 40 mg Q6H IV PUSH 07/08/17 06:00 07/08/17 06:19 (Symbicort 160-4.5 Mcg Inh) 2 puff Q12HR INH 07/08/17 09:00 07/08/17 10:45 (Mucinex Er) 600 mg BID PO 07/08/17 09:00 07/08/17 09:32 Levofloxacin/ Dextrose 150 ml @ 100 mls/hr Q24H IV 07/08/17 23:00 (Duoneb Neb) 1 ampule Q4HR WHILE AWAKE NEB NEB 07/08/17 08:00 07/08/17 11:20 (Duoneb Neb) 1 ampule Q2HR NEB PRN NEB 07/07/17 23:45 (NS Flush) 2 ml UNSCH PRN IV FLUSH 07/07/17 23:45 (NS Flush) 2 ml BID IV FLUSH 07/08/17 09:00 07/08/17 09:33 (Zofran Inj) 4 mg Q6H PRN IVP 07/07/17 23:45 (Heparin Inj) 5,000 units Q12H SQ 07/08/17 09:00 07/08/17 09:32 (Tylenol) 650 mg Q6H PRN PO 07/07/17 23:45 ([place] 5-325 Mg) 1 tab Q4H PRN PO 07/07/17 23:45 (Morphine Inj) 2 mg Q3H PRN IV PUSH 07/07/17 23:45 (Divina-Colace) 1 tab BID PO 07/08/17 09:00 07/08/17 09:33 (Milk Of Magnesia Liq) 30 ml Q12H PRN PO 07/07/17 23:45 (Senokot) 17.2 mg Q12H PRN PO 07/07/17 23:45 (Dulcolax Supp) 10 mg DAILY PRN RECTAL 07/07/17 23:45 (Lactulose Liq) 30 ml DAILY PRN PO 07/07/17 23:45 (Lasix Inj) 40 mg BID@ IV PUSH 07/08/17 09:00 07/08/17 09:32 (Glucotrol) 5 mg DAILYAC PO 07/08/17 08:00 07/08/17 09:33 (Protonix) 20 mg DAILY PO 07/08/17 09:00 07/08/17 09:33 (Ecotrin Ec) 81 mg DAILY PO 07/08/17 09:00 07/08/17 09:33 A/P Assessment and Plan (1) COPD (chronic obstructive pulmonary disease) ICD Code: J44.9 - COPD (chronic obstructive pulmonary disease) Status: Chronic (2) Hypoxia ICD Code: R09.02 - Hypoxemia (3) Elevated troponin ICD Code: R74.8 - Abnormal levels of other serum enzymes (4) CHF (congestive heart failure) ICD Code: I50.9 - Heart failure, unspecified (5) PNA (pneumonia) ICD Code: J18.9 - Pneumonia, unspecified organism (6) DM (diabetes mellitus) ICD Code: E11.9 - DM (diabetes mellitus) Status: Chronic 1. COPD: Chronic Respiratory Failure w/ Acute Exacerbation. Severe. + increased work of breathing, currently on BIPAP, ABG essentially normal, will wean off BIPAP as tolerated. Continue w/ Solu-Medrol, DuoNeb q4 and q2h prn, Symbicort, Mucinex. Antibiotics. 2. CHF: Acute on Chronic. Diastolic. Echo 03/23/17 w/ EF 60-65%, severe Pulm HTN 74mmHg, CXR w/ increased prominence hilar regions and interstitial marking likely mild edema, images reviewed by me. S/p Lasix in ER, monitor I/O, continue w/ diuresis. BNP 124 and Cardiac enzymes Equivocal improving. 3. Hypoxia: O2 sat 84% on RA upon arrival, was on BiPAP on admission at this time with NC 99% with NC 4 L/min. start titration to keep O2 sat over 92%. 4. PNA: CXR w/ consolidation at base, images reviewed by me, WBC 15, s/p Levaquin in ER, will continue w/ IV Levaquin 5. CAD stable troponin elevation on admission as equivocal Troponin level, continue ASA, Statin. Morphine prn. 6. DM II Sliding scale w/ Accu-Cheks, hold Glipizide for now. Hgb A1c 7.3 on 03/22/17 Uncontrolled today will titrate down Steroids. DVT Prophylaxis: Heparin sq Discharge Planning Expected in one to two days. Jasson Aguilera MD Jul 08, 2017 12:20
[2017-07-08] MEDS: LEVOFLOXACIN 750 MG PREMIX INJ 150 ML IV SCH (23:14)
[2017-07-09] VITALS (10 sets, daily range): BP systolic 107–145; BP diastolic 55–67; PULSE 77–113; RESP 18–24; TEMP 97.8–98.8; O2SAT 94–98
[2017-07-09] MEDS: methylPREDNISolone SOD SUCC 40 MG/1 ML VIAL IV PUSH SCH (06:18)
[2017-07-09] MEDS: DOCUSATE SODIUM 50 MG/SENNA 8.6 MG TAB PO SCH ×2 (08:58→20:18)
[2017-07-09] MEDS: PANTOPRAZOLE SOD 20 MG DELAYED RELEASE TAB PO SCH (08:58)
[2017-07-09] MEDS: ASPIRIN EC 81 MG TABEC PO SCH (08:59)
[2017-07-09] MEDS: HEPARIN SODIUM - SQ 10,000 UNITS/ML VIAL SQ SCH ×2 (08:59→20:18)
[2017-07-09] MEDS: FUROSEMIDE 40 MG/4 ML VIAL IV PUSH SCH ×2 (08:59→17:41)
[2017-07-09] MEDS: glipiZIDE 5 MG TAB PO SCH (08:59)
[2017-07-09] MEDS: guaiFENesin E.R. 600 MG TAB PO SCH ×2 (08:59→20:18)
[2017-07-09] MEDS: BUDESONIDE-FORMOTEROL 160/4.5 MCG INHALER INH SCH ×2 (09:00→20:16)
[2017-07-09] MEDS: INSULIN ASPART SUPPLEMENTAL SCALE SQ SCH ×4 (09:00→20:19)
[2017-07-09] MEDS: SODIUM CHLORIDE 0.9% FLUSH 10 ML FLUSH IV FLUSH SCH ×2 (09:00→20:16)
[2017-07-09] MEDS: RESP: ALBUTEROL 2.5 MG/IPRATROPIUM 0.5 MG NEB (SCH) NEB ×4 (09:16→19:29)
--- NOTE | 2017-07-09 09:17 | HHI.PR ---
Subjective Remarks This is a pleasant 82 y/o Female with Mental retardation, COPD, CHF Echocardiogram 03/23/17 with EF 60-65%, and Severe Pulmonary Hypertension 74mmH, DM and Dementia who was sent to the ER from SNF secondary to hypoxia and SOB. On arrival, O2 sat 84% on RA, noted to have significant work of breathing, started on BIPAP in ER. BP 169 /80, HR 107, O2 sat 99% on BiPAP 50% FiO2, Afebrile. WBC 15.3. Creatinine 1.17, previously 1.13 on 03/22/2017. Troponin 0.10. No complaints of chest pain. UA negative for UTI. CXR with increased prominent hilar regions and increased interstitial markings perihilar regions likely related to pulmonary venous hypertension or edema, consolidation at left base. 07/08: Seen in her bedroom in the presence of nurse Miss Kenny, stable no complaint. continue antibiotics and Respiratory medicines. 07/09: Stable in her bedroom, discussed with her Daughter in the room, asymptomatic today, asking to go home, will follow CXR in am tomorrow and if Improving will discharge. no nausea, vomit or diarrhea. Objective Vital Signs Date Time Temp Pulse Resp B/P (MAP) Pulse Ox O2 Delivery O2 Flow Rate FiO2 07/09/17 04:00 Nasal Cannula 2.00 07/09/17 04:00 98.8 99 20 111/65 (80) 98 07/09/17 03:42 98 07/09/17 00:00 98.7 95 24 131/59 (83) 96 07/09/17 00:00 Nasal Cannula 2.00 07/08/17 23:43 92 07/08/17 20:16 96 Nasal Cannula 2.00 07/08/17 20:00 98.5 98 19 119/58 (78) 98 07/08/17 20:00 Nasal Cannula 2.00 07/08/17 19:35 108 07/08/17 16:00 123 07/08/17 16:00 97.4 107 20 124/61 (82) 94 07/08/17 12:00 107 07/08/17 12:00 98.3 104 21 107/55 (72) 95 07/08/17 10:32 07/08/17 10:00 78 26 146/72 (96) 99 Nasal Cannula 4.00 I/O 07/08/17 07/08/17 07/08/17 07/09/17 07/09/17 07/09/17 07:00 15:00 23:00 07:00 15:00 23:00 Intake Total 240 ml 270 ml Output Total 1050 ml 600 ml 850 ml Balance -1050 ml -360 ml -580 ml Intake Oral 240 ml 120 ml IV Total 150 ml Output Urine Total 1050 ml 600 ml 850 ml # Voids 1 Result Diagram: 07/08/17 0700 07/08/17 07 Imaging Last Impressions Chest X-Ray 07/07/172137 Signed Impressions: Service Date/Time: Friday, July 07, 2017 21:52 - CONCLUSION: 1. Increased prominence of the hilar regions and increased interstitial markings in the perihilar regions likely related to pulmonary venous hypertension or mild edema. 2. Consolidation or atelectasis at the left base. Bhavesh Goldberg MD Procedures None Other Results Laboratory Tests Test 07/07/17 21:45 07/07/17 22:00 07/07/17 23:30 07/08/17 07:00 Total Creatine Kinase 109 U/L Creatine Kinase MB 1.7 NG/ML B-Type Natriuretic Peptide 124 PG/ML Urine Color YELLOW Urine Turbidity CLEAR Urine pH 5.5 Urine Specific [place] 1.012 Urine Protein TRACE mg/dL Urine Glucose (UA) NEG mg/dL Urine Ketones NEG mg/dL Urine Occult Blood NEG Urine Nitrite NEG Urine Bilirubin NEG Urine Urobilinogen LESS THAN 2.0 MG/DL Urine Leukocyte Esterase NEG Urine RBC 1 /hpf Urine WBC 1 /hpf Urine Bacteria RARE /hpf Urine Hyaline Casts 7 /lpf Urine Mucus FEW /lpf Microscopic Urinalysis Comment CULT NOT INDICATED Blood Gas Puncture Site RT RADIAL Blood Gas Patient Temperature 98.6 Blood Gas HCO3 30 mmol/L Blood Gas Base Excess 5.8 mmol/L Blood Gas Oxygen Saturation 97 % Arterial Blood pH 7.41 Arterial Blood Partial Pressure CO2 49 mmHg Arterial Blood Partial Pressure O2 116 mmHG Arterial Blood Oxygen Content 15.4 Vol % Arterial Blood Carboxyhemoglobin 1.2 % Arterial Blood Methemoglobin 0.6 % Blood Gas Hemoglobin 11.2 G/DL Oxygen Delivery Device BIPAP Blood Gas Ventilator Setting IPAP=10 EPAP=5 Blood Gas Inspired Oxygen 50 % White Blood Count 12.1 TH/MM3 Red Blood Count 3.49 MIL/MM3 Hemoglobin 10.9 GM/DL Hematocrit 33.5 % Mean Corpuscular Volume 95.8 FL Mean Corpuscular Hemoglobin 31.3 PG Mean Corpuscular Hemoglobin Concent 32.7 % Red Cell Distribution Width 14.1 % Platelet Count 176 TH/MM3 Mean Platelet Volume 8.7 FL Neutrophils (%) (Auto) 94.7 % Lymphocytes (%) (Auto) 3.4 % Monocytes (%) (Auto) 1.8 % Eosinophils (%) (Auto) 0.0 % Basophils (%) (Auto) 0.1 % Neutrophils # (Auto) 11.4 TH/MM3 Lymphocytes # (Auto) 0.4 TH/MM3 Monocytes # (Auto) 0.2 TH/MM3 Eosinophils # (Auto) 0.0 TH/MM3 Basophils # (Auto) 0.0 TH/MM3 CBC Comment DIFF FINAL Differential Comment Blood Urea Nitrogen 24 MG/DL Creatinine 1.03 MG/DL Random Glucose 225 MG/DL Total Protein 6.7 GM/DL Albumin 2.8 GM/DL Calcium Level 8.8 MG/DL Alkaline Phosphatase 71 U/L Aspartate Amino Transf (AST/SGOT) 14 U/L Alanine Aminotransferase (ALT/SGPT) 22 U/L Total Bilirubin 0.5 MG/DL Sodium Level 139 MEQ/L Potassium Level 4.5 MEQ/L Chloride Level 100 MEQ/L Carbon Dioxide Level 29.9 MEQ/L Anion Gap 9 MEQ/L Estimat Glomerular Filtration Rate 51 ML/MIN Test 07/08/17 13:57 Troponin I 0.04 NG/ML Objective Remarks GENERAL: no acute distress. HEENT: PERRLA, EOMI. No scleral icterus or conjunctival pallor. No lid lag or facial droop. CARDIOVASCULAR: Regular rate and rhythm. No obvious murmurs to auscultation. No chest tenderness to palpation. RESPIRATORY: No obvious rhonchi or wheezing. Clear to auscultation. Breath sounds equal bilaterally. GASTROINTESTINAL: Abdomen soft, non-tender, nondistended. BS normal. MUSCULOSKELETAL: Extremities without clubbing, cyanosis, or edema. No obvious deformities. NEUROLOGICAL: Awake, alert. No focal neurologic deficits. Moving both upper and lower extremities spontaneously. Medications and IVs Current Medications Medications (Trade) Dose Ordered Sig/Emanuel Route Start Time Stop Time Status Last Admin (NS Flush) 2 ml UNSCH PRN IVF 07/07/17 21:45 (D50w (Vial) Inj) 50 ml UNSCH PRN IV PUSH 07/07/17 23:45 (Glucagon Inj) 1 mg UNSCH PRN OTHER 07/07/17 23:45 (NovoLOG SUPPLEMENTAL SCALE) 1 ACHS SLIDING SCALE SQ 07/08/17 08:00 07/08/17 21:16 (SoluMEDROL INJ) 40 mg Q6H IV PUSH 07/08/17 06:00 07/09/17 06:18 (Symbicort 160-4.5 Mcg Inh) 2 puff Q12HR INH 07/08/17 09:00 07/08/17 21:13 (Mucinex Er) 600 mg BID PO 07/08/17 09:00 07/08/17 21:15 Levofloxacin/ Dextrose 150 ml @ 100 mls/hr Q24H IV 07/08/17 23:00 07/08/17 23:14 (Duoneb Neb) 1 ampule Q4HR WHILE AWAKE NEB NEB 07/08/17 08:00 07/08/17 20:14 (Duoneb Neb) 1 ampule Q2HR NEB PRN NEB 07/07/17 23:45 (NS Flush) 2 ml UNSCH PRN IV FLUSH 07/07/17 23:45 (NS Flush) 2 ml BID IV FLUSH 07/08/17 09:00 07/08/17 21:15 (Zofran Inj) 4 mg Q6H PRN IVP 07/07/17 23:45 (Heparin Inj) 5,000 units Q12H SQ 07/08/17 09:00 07/08/17 21:15 (Tylenol) 650 mg Q6H PRN PO 07/07/17 23:45 ([place] 5-325 Mg) 1 tab Q4H PRN PO 07/07/17 23:45 (Morphine Inj) 2 mg Q3H PRN IV PUSH 07/07/17 23:45 (Divina-Colace) 1 tab BID PO 07/08/17 09:00 07/08/17 21:15 (Milk Of Magnesia Liq) 30 ml Q12H PRN PO 07/07/17 23:45 (Senokot) 17.2 mg Q12H PRN PO 07/07/17 23:45 (Dulcolax Supp) 10 mg DAILY PRN RECTAL 07/07/17 23:45 (Lactulose Liq) 30 ml DAILY PRN PO 07/07/17 23:45 (Lasix Inj) 40 mg BID@ IV PUSH 07/08/17 09:00 07/08/17 18:16 (Glucotrol) 5 mg DAILYAC PO 07/08/17 08:00 07/08/17 09:33 (Protonix) 20 mg DAILY PO 07/08/17 09:00 07/08/17 09:33 (Ecotrin Ec) 81 mg DAILY PO 07/08/17 09:00 07/08/17 09:33 A/P Assessment and Plan (1) COPD (chronic obstructive pulmonary disease) ICD Code: J44.9 - COPD (chronic obstructive pulmonary disease) Status: Chronic (2) Hypoxia ICD Code: R09.02 - Hypoxemia (3) Elevated troponin ICD Code: R74.8 - Abnormal levels of other serum enzymes (4) CHF (congestive heart failure) ICD Code: I50.9 - Heart failure, unspecified (5) PNA (pneumonia) ICD Code: J18.9 - Pneumonia, unspecified organism (6) DM (diabetes mellitus) ICD Code: E11.9 - DM (diabetes mellitus) Status: Chronic 1. COPD: Chronic Respiratory Failure w/ Acute Exacerbation. now improved, will titrate down her Solu-Medrol due to uncontrolled blood sugar was on BiPAP on admission, ABGs eesentially normal, now on nasal cannula, continue bronchodilator, Mucolytic and incentive spirometry antibiotics. 2. CHF: Diastolic. Echo 03/23/17 w/ EF 60-65%, severe Pulm HTN 74mmHg, CXR w/ increased prominence hilar regions and interstitial marking likely mild edema, S/p Lasix in ER, monitor I/O, continue w/ diuresis. BNP 124 and Cardiac enzymes Equivocal improving. 3. Hypoxia: O2 sat 84% on RA upon arrival, was on BiPAP on admission at this time with NC 99% with NC 4 L/min. start titration to keep O2 sat over 92%. 4. PNA: CXR w/ consolidation at bases, WBC 15, s/p Levaquin in ER, will continue w/ IV Levaquin 5. CAD stable troponin elevation on admission as equivocal Troponin level, continue ASA, Statin. Morphine prn. 6. DM II Sliding scale w/ Accu-Cheks, hold Glipizide for now. Hgb A1c 7.3 on 03/22/17 Uncontrolled today will titrate down Steroids. DVT Prophylaxis: Heparin sq Discharge Planning Expected in one to two days. Jasson Aguilera MD Jul 09, 2017 09:17
[2017-07-09 19:03] LABS: AUTOMATED NEUTROPHIL # 11.9 TH/MM3 (1.8-7.7); BASOPHIL % 0.3 % (0.0-2.0); HEMATOCRIT 35.8 % (35.0-46.0); HEMOGLOBIN 11.7 GM/DL (11.6-15.3); LYMPH % 2.3 % (9.0-44.0); LYMPHOCYTE # 0.3 TH/MM3 (1.0-4.8); MEAN CELL VOLUME 94.7 FL (80.0-100.0); MEAN CORPUSCULAR HEMOGLOBIN 30.9 PG (27.0-34.0); MEAN CORPUSCULAR HGB CONC 32.7 % (32.0-36.0); MEAN PLATELET VOLUME 8.4 FL (7.0-11.0); MONO % 6.2 % (0.0-8.0); MONOCYTE # 0.8 TH/MM3 (0-0.9); NEUT % 91.2 % (16.0-70.0); PLATELET COUNT 220 TH/MM3 (150-450); RED BLOOD COUNT 3.78 MIL/MM3 (4.00-5.30); RED CELL DISTRIBUTION WIDTH 13.8 % (11.6-17.2); WHITE BLOOD COUNT 13.1 TH/MM3 (4.0-11.0)
[2017-07-09 19:22] LABS: INTERNATIONAL NORMALIZED RATIO 1.1 RATIO; PROTHROMBIN TIME - PATIENT 11.4 SEC (9.8-11.6)
[2017-07-09 19:28] LABS: CREATININE 1.09 MG/DL (0.50-1.00)
[2017-07-09 19:31] LABS: TOTAL BILIRUBIN ADULT 0.2 MG/DL (0.2-1.0)
[2017-07-09] MEDS ORDERED: methylPREDNISolone SOD SUCC 40 MG/1 ML VIAL IV PUSH SCH (21:00)
[2017-07-09] MEDS: LEVOFLOXACIN 750 MG PREMIX INJ 150 ML IV SCH (22:58)
[2017-07-10] VITALS (11 sets, daily range): BP systolic 126–154; BP diastolic 64–87; PULSE 67–120; RESP 20–32; TEMP 97–99; O2SAT 96–100
[2017-07-10] MEDS: RESP: ALBUTEROL 2.5 MG/IPRATROPIUM 0.5 MG NEB (SCH) NEB ×4 (08:00→19:43)
[2017-07-10] MEDS: INSULIN ASPART SUPPLEMENTAL SCALE SQ SCH ×4 (08:00→21:13)
[2017-07-10] MEDS: glipiZIDE 5 MG TAB PO SCH (09:00)
[2017-07-10] MEDS: predniSONE 10 MG TAB PO SCH (09:01)
[2017-07-10] MEDS: FUROSEMIDE 40 MG/4 ML VIAL IV PUSH SCH ×2 (09:01→17:53)
[2017-07-10] MEDS: guaiFENesin E.R. 600 MG TAB PO SCH ×2 (09:02→21:13)
[2017-07-10] MEDS: PANTOPRAZOLE SOD 20 MG DELAYED RELEASE TAB PO SCH (09:02)
[2017-07-10] MEDS: DOCUSATE SODIUM 50 MG/SENNA 8.6 MG TAB PO SCH ×2 (09:02→21:13)
[2017-07-10] MEDS: ASPIRIN EC 81 MG TABEC PO SCH (09:02)
[2017-07-10] MEDS: HEPARIN SODIUM - SQ 10,000 UNITS/ML VIAL SQ SCH ×2 (09:03→21:13)
[2017-07-10] MEDS: SODIUM CHLORIDE 0.9% FLUSH 10 ML FLUSH IV FLUSH SCH ×2 (09:03→21:14)
[2017-07-10] MEDS: BUDESONIDE-FORMOTEROL 160/4.5 MCG INHALER INH SCH ×2 (09:04→21:14)
--- NOTE | 2017-07-10 13:23 | RADRPT ---
EXAM DATE/TIME: 07/10/2017 13:02 [facility] COMPARISON: CHEST SINGLE AP, March 18, 2017, 12:12. CHEST SINGLE AP, July 07, 2017, 21:52. INDICATIONS : Short of breath. MEDICAL HISTORY : Chronic obstructive pulmonary disease. Congestive heart failure.Gastroesophageal reflux disease. Diab etes. Asthma SURGICAL HISTORY : Bilateral hip replacements ENCOUNTER: Subsequent ACUITY: 3 days PAIN SCORE: 0/10 LOCATION: Bilateral chest FINDINGS: AP and lateral views of the chest were obtained and demonstrate a retrocardiac hiatal hernia is moder ate in size. There is coarse patchy perihilar and bibasal opacities again noted with no consolidation . The heart size is at the upper limits of normal. Degenerative changes are again noted in the right shoulder CONCLUSION: No significant change. Coarse patchy perihilar and bibasilar opacities again noted wh ich may represent scarring. Krunal Murphy MD on July 10, 2017 at 13:19 Board Certified Radiologist. This report was verified electronically.
--- NOTE | 2017-07-10 16:35 | HHI.PR ---
Subjective Remarks This is a pleasant 82 y/o Female with Mental retardation, COPD, CHF Echocardiogram 03/23/17 with EF 60-65%, and Severe Pulmonary Hypertension 74mmH, DM and Dementia who was sent to the ER from SNF secondary to hypoxia and SOB. On arrival, O2 sat 84% on RA, noted to have significant work of breathing, started on BIPAP in ER. BP 169 /80, HR 107, O2 sat 99% on BiPAP 50% FiO2, Afebrile. WBC 15.3. Creatinine 1.17, previously 1.13 on 03/22/2017. Troponin 0.10. No complaints of chest pain. UA negative for UTI. CXR with increased prominent hilar regions and increased interstitial markings perihilar regions likely related to pulmonary venous hypertension or edema, consolidation at left base. 07/08: Seen in her bedroom in the presence of nurse Miss Kenny, stable no complaint. continue antibiotics and Respiratory medicines. 07/09: Stable in her bedroom, discussed with her Daughter in the room, asymptomatic today, asking to go home, will follow CXR in am tomorrow and if Improving will discharge. 07/10: Patient totally asymptomatic, asked for new CXR has probable scarring more than real Pneumonia, will continue present care she is much better will take Procalcitonin. will follow ESR and CRP and follow . if stable will discharge on present care. Objective Vital Signs Date Time Temp Pulse Resp B/P (MAP) Pulse Ox O2 Delivery O2 Flow Rate FiO2 07/10/17 12:00 98.1 94 20 145/77 (99) 97 07/10/17 08:38 96 Nasal Cannula 2.00 07/10/17 08:00 97.7 82 20 140/72 (94) 97 07/10/17 04:00 97.0 94 21 154/87 (109) 96 07/10/17 04:00 Nasal Cannula 2.00 07/10/17 03:43 88 07/10/17 00:00 99.0 67 20 130/64 (86) 96 07/10/17 00:00 Nasal Cannula 2.00 07/09/17 23:45 84 07/09/17 20:00 Nasal Cannula 2.00 07/09/17 20:00 97.9 110 20 144/67 (92) 97 07/09/17 19:46 112 07/09/17 19:30 94 Nasal Cannula 2.00 I/O 07/09/17 07/09/17 07/09/17 07/10/17 07/10/17 07/10/17 07:00 15:00 23:00 07:00 15:00 23:00 Intake Total 270 ml 480 ml 400 ml 600 ml Output Total 850 ml 600 ml Balance -580 ml -120 ml 400 ml 600 ml Intake Oral 120 ml 480 ml 400 ml 600 ml IV Total 150 ml Output Urine Total 850 ml 600 ml # Voids 3 3 4 # Bowel Movements 1 0 2 Result Diagram: 07/09/17 1852 07/09/17 1852 Imaging Last Impressions Chest X-Ray 07/10/17 0000 Signed Impressions: Service Date/Time: Monday, July 10, 2017 13:02 - CONCLUSION: No significant change. Coarse patchy perihilar and bibasilar opacities again noted which may represent scarring. Krunal Murphy MD Procedures None Other Results Laboratory Tests Test 07/07/17 21:45 07/07/17 22:00 07/07/17 23:30 07/08/17 07:00 Total Creatine Kinase 109 U/L Creatine Kinase MB 1.7 NG/ML B-Type Natriuretic Peptide 124 PG/ML Urine Color YELLOW Urine Turbidity CLEAR Urine pH 5.5 Urine Specific [place] 1.012 Urine Protein TRACE mg/dL Urine Glucose (UA) NEG mg/dL Urine Ketones NEG mg/dL Urine Occult Blood NEG Urine Nitrite NEG Urine Bilirubin NEG Urine Urobilinogen LESS THAN 2.0 MG/DL Urine Leukocyte Esterase NEG Urine RBC 1 /hpf Urine WBC 1 /hpf Urine Bacteria RARE /hpf Urine Hyaline Casts 7 /lpf Urine Mucus FEW /lpf Microscopic Urinalysis Comment CULT NOT INDICATED Blood Gas Puncture Site RT RADIAL Blood Gas Patient Temperature 98.6 Blood Gas HCO3 30 mmol/L Blood Gas Base Excess 5.8 mmol/L Blood Gas Oxygen Saturation 97 % Arterial Blood pH 7.41 Arterial Blood Partial Pressure CO2 49 mmHg Arterial Blood Partial Pressure O2 116 mmHG Arterial Blood Oxygen Content 15.4 Vol % Arterial Blood Carboxyhemoglobin 1.2 % Arterial Blood Methemoglobin 0.6 % Blood Gas Hemoglobin 11.2 G/DL Oxygen Delivery Device BIPAP Blood Gas Ventilator Setting IPAP=10 EPAP=5 Blood Gas Inspired Oxygen 50 % Blood Urea Nitrogen 24 MG/DL Creatinine 1.03 MG/DL Random Glucose 225 MG/DL Total Protein 6.7 GM/DL Albumin 2.8 GM/DL Calcium Level 8.8 MG/DL Alkaline Phosphatase 71 U/L Aspartate Amino Transf (AST/SGOT) 14 U/L Alanine Aminotransferase (ALT/SGPT) 22 U/L Total Bilirubin 0.5 MG/DL Sodium Level 139 MEQ/L Potassium Level 4.5 MEQ/L Chloride Level 100 MEQ/L Carbon Dioxide Level 29.9 MEQ/L Anion Gap 9 MEQ/L Test 07/08/17 13:57 07/09/17 18:52 Troponin I 0.04 NG/ML White Blood Count 13.1 TH/MM3 Red Blood Count 3.78 MIL/MM3 Hemoglobin 11.7 GM/DL Hematocrit 35.8 % Mean Corpuscular Volume 94.7 FL Mean Corpuscular Hemoglobin 30.9 PG Mean Corpuscular Hemoglobin Concent 32.7 % Red Cell Distribution Width 13.8 % Platelet Count 220 TH/MM3 Mean Platelet Volume 8.4 FL Neutrophils (%) (Auto) 91.2 % Lymphocytes (%) (Auto) 2.3 % Monocytes (%) (Auto) 6.2 % Eosinophils (%) (Auto) 0.0 % Basophils (%) (Auto) 0.3 % Neutrophils # (Auto) 11.9 TH/MM3 Lymphocytes # (Auto) 0.3 TH/MM3 Monocytes # (Auto) 0.8 TH/MM3 Eosinophils # (Auto) 0.0 TH/MM3 Basophils # (Auto) 0.0 TH/MM3 CBC Comment DIFF FINAL Differential Comment Prothrombin Time 11.4 SEC Prothromb Time International Ratio 1.1 RATIO Activated Partial Thromboplast Time 25.8 SEC Creatinine 1.09 MG/DL Estimat Glomerular Filtration Rate 48 ML/MIN Lactic Acid Level 1.1 mmol/L Total Bilirubin 0.2 MG/DL Objective Remarks GENERAL: no acute distress. HEENT: PERRLA, EOMI. No scleral icterus or conjunctival pallor. No lid lag or facial droop. CARDIOVASCULAR: Regular rate and rhythm. No obvious murmurs to auscultation. No chest tenderness to palpation. RESPIRATORY: No obvious rhonchi or wheezing. Clear to auscultation. Breath sounds equal bilaterally. GASTROINTESTINAL: Abdomen soft, non-tender, nondistended. BS normal. MUSCULOSKELETAL: Extremities without clubbing, cyanosis, or edema. No obvious deformities. NEUROLOGICAL: Awake, alert. No focal neurologic deficits. Moving both upper and lower extremities spontaneously. Medications and IVs Current Medications Medications (Trade) Dose Ordered Sig/Emanuel Route Start Time Stop Time Status Last Admin (D50w (Vial) Inj) 50 ml UNSCH PRN IV PUSH 07/07/17 23:45 (Glucagon Inj) 1 mg UNSCH PRN OTHER 07/07/17 23:45 (NovoLOG SUPPLEMENTAL SCALE) 1 ACHS SLIDING SCALE SQ 07/08/17 08:00 07/10/17 12:12 (Symbicort 160-4.5 Mcg Inh) 2 puff Q12HR INH 07/08/17 09:00 07/10/17 09:04 (Mucinex Er) 600 mg BID PO 07/08/17 09:00 07/10/17 09:02 Levofloxacin/ Dextrose 150 ml @ 100 mls/hr Q24H IV 07/08/17 23:00 07/09/17 22:58 (Duoneb Neb) 1 ampule Q4HR WHILE AWAKE NEB NEB 07/08/17 08:00 07/10/17 11:55 (Duoneb Neb) 1 ampule Q2HR NEB PRN NEB 07/07/17 23:45 (NS Flush) 2 ml UNSCH PRN IV FLUSH 07/07/17 23:45 (NS Flush) 2 ml BID IV FLUSH 07/08/17 09:00 07/10/17 09:03 (Zofran Inj) 4 mg Q6H PRN IVP 07/07/17 23:45 (Heparin Inj) 5,000 units Q12H SQ 07/08/17 09:00 07/10/17 09:03 (Tylenol) 650 mg Q6H PRN PO 07/07/17 23:45 ([place] 5-325 Mg) 1 tab Q4H PRN PO 07/07/17 23:45 (Morphine Inj) 2 mg Q3H PRN IV PUSH 07/07/17 23:45 (Divina-Colace) 1 tab BID PO 07/08/17 09:00 07/10/17 09:02 (Milk Of Magnesia Liq) 30 ml Q12H PRN PO 07/07/17 23:45 (Senokot) 17.2 mg Q12H PRN PO 4/20/18 23:45 (Dulcolax Supp) 10 mg DAILY PRN RECTAL 07/07/17 23:45 (Lactulose Liq) 30 ml DAILY PRN PO 07/07/17 23:45 (Lasix Inj) 40 mg BID@ IV PUSH 07/08/17 09:00 07/10/17 09:01 (Glucotrol) 5 mg DAILYAC PO 07/08/17 08:00 07/10/17 09:00 (Protonix) 20 mg DAILY PO 07/08/17 09:00 07/10/17 09:02 (Ecotrin Ec) 81 mg DAILY PO 07/08/17 09:00 07/10/17 09:02 (Deltasone) 30 mg DAILY PO 07/10/17 09:00 07/10/17 09:01 A/P Assessment and Plan (1) COPD (chronic obstructive pulmonary disease) ICD Code: J44.9 - COPD (chronic obstructive pulmonary disease) Status: Chronic (2) Hypoxia ICD Code: R09.02 - Hypoxemia (3) Elevated troponin ICD Code: R74.8 - Abnormal levels of other serum enzymes (4) CHF (congestive heart failure) ICD Code: I50.9 - Heart failure, unspecified (5) PNA (pneumonia) ICD Code: J18.9 - Pneumonia, unspecified organism (6) DM (diabetes mellitus) ICD Code: E11.9 - DM (diabetes mellitus) Status: Chronic 1. COPD: Chronic Respiratory Failure w/ Acute Exacerbation. now improved, will titrate down her Solu-Medrol due to uncontrolled blood sugar was on BiPAP on admission, ABGs eesentially normal, now on nasal cannula, continue bronchodilator, Mucolytic and incentive spirometry antibiotics. started today on Prednisone. 2. CHF: Diastolic. Echo 03/23/17 w/ EF 60-65%, severe Pulm HTN 74mmHg, CXR w/ increased prominence hilar regions and interstitial marking likely mild edema, S/p Lasix in ER, monitor I/O, continue w/ diuresis. BNP 124 and Cardiac enzymes Equivocal improving. 3. Hypoxia: O2 sat 84% on RA upon arrival, was on BiPAP on admission at this time with NC 99% with NC 4 L/min. start titration to keep O2 sat over 92%. Patient Asymptomatic not wearing nasal cannula. 4. PNA: CXR w/ consolidation at bases, WBC 15, s/p Levaquin in ER, will continue w/ IV Levaquin, new CXR showed probable scarring, Asked for CRP, Sed Rate Procalcitonin and follow results for discharge. 5. CAD stable troponin elevation on admission as equivocal Troponin level, continue ASA, Statin. Morphine prn. 6. DM II Sliding scale w/ Accu-Cheks, hold Glipizide for now. Hgb A1c 7.3 on 03/22/17 . better control. DVT Prophylaxis: Heparin sq Discharge Planning Expected by tomorrow. Jasson Aguilera MD Jul 10, 2017 16:35
[2017-07-10] MEDS: LEVOFLOXACIN 750 MG PREMIX INJ 150 ML IV SCH (23:31)
[2017-07-11 00:08] VITALS: BP 145/68; PULSE 105; RESP 28; TEMP 97.4; O2SAT 92
[2017-07-11 03:49] VITALS: PULSE 79
[2017-07-11 04:20] VITALS: BP 116/65; PULSE 89; RESP 24; TEMP 97.8; O2SAT 97
[2017-07-11 06:41] LABS: AUTOMATED NEUTROPHIL # 7.7 TH/MM3 (1.8-7.7); BASOPHIL % 0.1 % (0.0-2.0); EOSINOPHIL % 0.1 % (0.0-4.0); HEMATOCRIT 37.7 % (35.0-46.0); HEMOGLOBIN 12.4 GM/DL (11.6-15.3); LYMPH % 9.7 % (9.0-44.0); LYMPHOCYTE # 0.9 TH/MM3 (1.0-4.8); MEAN CELL VOLUME 95.2 FL (80.0-100.0); MEAN CORPUSCULAR HEMOGLOBIN 31.3 PG (27.0-34.0); MEAN CORPUSCULAR HGB CONC 32.9 % (32.0-36.0); MEAN PLATELET VOLUME 8.8 FL (7.0-11.0); MONO % 10.6 % (0.0-8.0); NEUT % 79.5 % (16.0-70.0); PLATELET COUNT 228 TH/MM3 (150-450); RED BLOOD COUNT 3.96 MIL/MM3 (4.00-5.30); WHITE BLOOD COUNT 9.7 TH/MM3 (4.0-11.0)
[2017-07-11 08:00] VITALS: BP 148/79; PULSE 80; PULSE 99; RESP 18; TEMP 97.6; O2SAT 99
[2017-07-11] MEDS: INSULIN ASPART SUPPLEMENTAL SCALE SQ SCH ×2 (08:00→12:55)
[2017-07-11] MEDS: RESP: ALBUTEROL 2.5 MG/IPRATROPIUM 0.5 MG NEB (SCH) NEB ×3 (08:08→15:32)
[2017-07-11 08:09] VITALS: O2SAT 98
[2017-07-11] MEDS: DOCUSATE SODIUM 50 MG/SENNA 8.6 MG TAB PO SCH (09:00)
[2017-07-11] MEDS: glipiZIDE 5 MG TAB PO SCH (09:18)
[2017-07-11] MEDS: FUROSEMIDE 40 MG/4 ML VIAL IV PUSH SCH (09:18)
[2017-07-11] MEDS: HEPARIN SODIUM - SQ 10,000 UNITS/ML VIAL SQ SCH (09:18)
[2017-07-11] MEDS: ASPIRIN EC 81 MG TABEC PO SCH (09:18)
[2017-07-11] MEDS: predniSONE 10 MG TAB PO SCH (09:18)
[2017-07-11] MEDS: PANTOPRAZOLE SOD 20 MG DELAYED RELEASE TAB PO SCH (09:18)
[2017-07-11] MEDS: guaiFENesin E.R. 600 MG TAB PO SCH (09:18)
[2017-07-11] MEDS: SODIUM CHLORIDE 0.9% FLUSH 10 ML FLUSH IV FLUSH SCH (09:20)
[2017-07-11] MEDS: BUDESONIDE-FORMOTEROL 160/4.5 MCG INHALER INH SCH (09:20)
[2017-07-11 12:00] VITALS: BP 151/75; PULSE 101; PULSE 92; RESP 18; TEMP 97.8; O2SAT 96
--- NOTE | 2017-07-11 14:28 | HHI.PR ---
Subjective Remarks seen with niece at bedside feeling better baseline gets around with a wheeled walker with a seat no fever or chills minimal cough Objective Vitals Vital Signs Date Time Temp Pulse Resp B/P (MAP) Pulse Ox O2 Delivery O2 Flow Rate FiO2 07/11/17 14:20 Nasal Cannula 2.00 07/11/17 12:00 97.8 101 18 151/75 (100) 96 07/11/17 12:00 92 07/11/17 11:50 Nasal Cannula 2.00 07/11/17 09:30 Nasal Cannula 2.00 07/11/17 08:09 98 Nasal Cannula 2.00 07/11/17 08:00 97.6 80 18 148/79 (102) 99 07/11/17 08:00 99 07/11/17 04:20 97.8 89 24 116/65 (82) 97 07/11/17 04:00 Nasal Cannula 2.00 07/11/17 03:49 79 07/11/17 00:08 97.4 105 28 145/68 (93) 92 07/11/17 00:00 Nasal Cannula 2.00 07/10/17 23:48 104 07/10/17 20:43 97.8 120 32 126/71 (89) 99 07/10/17 20:00 Nasal Cannula 2.00 07/10/17 19:49 116 07/10/17 19:44 97 Nasal Cannula 2.00 07/10/17 16:00 98.2 105 20 134/77 (96) 100 I/O 07/10/17 07/10/17 07/10/17 07/11/17 07/11/17 07/11/17 07:00 15:00 23:00 07:00 15:00 23:00 Intake Total 400 ml 600 ml 240 ml Balance 400 ml 600 ml 240 ml Intake Oral 400 ml 600 ml 240 ml # Voids 3 4 1 5 # Bowel Movements 0 2 1 2 Result Diagram: 07/11/17 0440 07/09/17 1852 Imaging Last Impressions Chest X-Ray 07/10/17 0000 Signed Impressions: Service Date/Time: Monday, July 10, 2017 13:02 - CONCLUSION: No significant change. Coarse patchy perihilar and bibasilar opacities again noted which may represent scarring. Krunal Murphy MD Objective Remarks awake and alert, no acute distress good sats at 2LNC anicteric no rales or hweezes regular rhythma bdomen soft, good bowel sounds extremities no edema A/P Problem List: (1) COPD (chronic obstructive pulmonary disease) ICD Code: J44.9 - COPD (chronic obstructive pulmonary disease) Status: Chronic (2) Hypoxia ICD Code: R09.02 - Hypoxemia (3) Elevated troponin ICD Code: R74.8 - Abnormal levels of other serum enzymes (4) CHF (congestive heart failure) ICD Code: I50.9 - Heart failure, unspecified (5) PNA (pneumonia) ICD Code: J18.9 - Pneumonia, unspecified organism (6) DM (diabetes mellitus) ICD Code: E11.9 - DM (diabetes mellitus) Status: Chronic Assessment and Plan 82 years old female 1. COPD 02 dependent: Chronic Respiratory Failure w/ Acute Exacerbation. hange to Po prednisone 2. CHF: Diastolic. Echo 03/23/17 w/ EF 60-65%, severe Pulm HTN 74mmHg, CXR w/ increased prominence hilar regions and interstitial marking likely mild edema, S/p Lasix in ER, monitor I/O, continue w/ diuresis. BNP 124 and Cardiac enzymes Equivocal 3. Hypoxia: O2 sat 84% on RA upon arrival, was on BiPAP on admission at this time with NC 99% with NC 4 L/min. start titration to keep O2 sat over 92%. Patient Asymptomatic not wearing nasal cannula. 4. PNA: CXR w/ consolidation at bases, WBC 15, s/p Levaquin in ER, will continue w/ IV Levaquin, new CXR showed probable scarring,co plete antibiotic course 1 week 5. CAD stable troponin elevation on admission as equivocal Troponin level, continue ASA, Statin. Morphine prn. 6. DM II Sliding scale w/ Accu-Cheks, Hgb A1c 7.3 on 03/22/17 . better control. Increase Glipizide to 10 mg po daily DC today OP ff up with Pulmonary- niece states she ff wup with Dr. fang Problem Qualifiers (1) COPD (chronic obstructive pulmonary disease): Qualified Codes: J44.9 - Chronic obstructive pulmonary disease, unspecified (2) CHF (congestive heart failure): Qualified Codes: I50.9 - Heart failure, unspecified Lukas Briceno MD Jul 11, 2017 14:28
[2017-07-11] MEDS ORDERED: Albuterol-Ipratropium Neb NEB (14:34)
[2017-07-11] MEDS ORDERED: GLIP10TA6 PO (14:34)
[2017-07-11] MEDS ORDERED: LEVA500T33 PO (14:34)
[2017-07-11] MEDS ORDERED: PRED20 PO (14:36)
--- NOTE | 2017-07-11 14:38 | HHI.DS ---
Discharge Summary Admission Date Jul 07, 2017 at 23:33 Discharge Date: Jul 11, 2017 Admitting Diagnosis RESP Failure COPD CHF on BiPAP (1) COPD (chronic obstructive pulmonary disease) ICD Code: J44.9 - COPD (chronic obstructive pulmonary disease) Diagnosis: Principal Status: Chronic (2) Hypoxia ICD Code: R09.02 - Hypoxemia Diagnosis: Principal (3) Elevated troponin ICD Code: R74.8 - Abnormal levels of other serum enzymes Diagnosis: Secondary (4) CHF (congestive heart failure) ICD Code: I50.9 - Heart failure, unspecified Diagnosis: Secondary (5) PNA (pneumonia) ICD Code: J18.9 - Pneumonia, unspecified organism Diagnosis: Secondary (6) DM (diabetes mellitus) ICD Code: E11.9 - DM (diabetes mellitus) Diagnosis: Secondary Status: Chronic Procedures none Brief History - From Admission This is an 82-year-old female with a PMH of Mental Retardation, COPD, CHF (Echo 03/23/2017 with EF 60-65% and Severe Pulm HTN 74mmHg), DM and Dementia who was sent to the ER from SNF secondary to hypoxia and SOB. Pt unable to provide much history. Niece at bedside states pt doesn't usually complain, however today said she was having difficulty breathing. No apparent fever, cough or sick contacts. On arrival, O2 sat 84% on RA, noted to have significant work of breathing, started on BIPAP in ER. BP 169/80, HR 107, O2 sat 99% on BiPAP 50% FiO2, Afebrile. WBC 15.3. Creatinine 1.17, previously 1.13 on 03/22/2017. Troponin 0.10. No complaints of chest pain. UA negative for UTI. CXR with increased prominent hilar regions and increased interstitial markings perihilar regions likely related to pulmonary venous hypertension or edema, consolidation at left base. CBC/BMP: 07/11/17 0440 07/09/17 1852 Significant Findings Laboratory Tests Test 07/09/17 18:52 07/10/17 17:31 07/11/17 04:40 White Blood Count 13.1 TH/MM3 (4.0-11.0) Red Blood Count 3.78 MIL/MM3 (4.00-5.30) 3.96 MIL/MM3 (4.00-5.30) Neutrophils (%) (Auto) 91.2 % (16.0-70.0) 79.5 % (16.0-70.0) Lymphocytes (%) (Auto) 2.3 % (9.0-44.0) Neutrophils # (Auto) 11.9 TH/MM3 (1.8-7.7) Lymphocytes # (Auto) 0.3 TH/MM3 (1.0-4.8) 0.9 TH/MM3 (1.0-4.8) Creatinine 1.09 MG/DL (0.50-1.00) Estimat Glomerular Filtration Rate 48 ML/MIN (>89) Erythrocyte Sedimentation Rate 60 mm/hr (0-30) C-Reactive Protein 7.80 MG/DL (0.00-0.30) Procalcitonin 0.16 ng/mL (0.00-0.08) Monocytes (%) (Auto) 10.6 % (0.0-8.0) Monocytes # (Auto) 1.0 TH/MM3 (0-0.9) Imaging Last Impressions Chest X-Ray 07/10/17 0000 Signed Impressions: Service Date/Time: Monday, July 10, 2017 13:02 - CONCLUSION: No significant change. Coarse patchy perihilar and bibasilar opacities again noted which may represent scarring. Krunal Murphy MD PE at Discharge awake and alert, no acute distress good sats at 2LNC anicteric no rales or wheezes regular rhythm abdomen soft, good bowel sounds extremities no edema Pt update on day of discharge afebrile good bilateral air entry Hospital Course 82 years old female 1. COPD 02 dependent: Chronic Respiratory Failure w/ Acute Exacerbation. hange to Po prednisone 2. CHF: Diastolic. Echo 03/23/17 w/ EF 60-65%, severe Pulm HTN 74mmHg, CXR w/ increased prominence hilar regions and interstitial marking likely mild edema, S/p Lasix in ER, monitor I/O, continue w/ diuresis. BNP 124 and Cardiac enzymes Equivocal 3. Hypoxia: O2 sat 84% on RA upon arrival, was on BiPAP on admission at this time with NC 99% with NC 4 L/min. start titration to keep O2 sat over 92%. Patient Asymptomatic not wearing nasal cannula. 4. PNA: CXR w/ consolidation at bases, WBC 15, s/p Levaquin in ER, will continue w/ IV Levaquin, new CXR showed probable scarring,co plete antibiotic course 1 week 5. CAD stable troponin elevation on admission as equivocal Troponin level, continue ASA, Statin. Morphine prn. 6. DM II Sliding scale w/ Accu-Cheks, Hgb A1c 7.3 on 03/22/17 . better control. Increase Glipizide to 10 mg po daily DC today OP ff up with Pulmonary- niece states she ff wup with Dr. fang Pt Condition on Discharge: Stable Discharge Disposition: ACLF/VON Discharge Time: > 30 minutes Discharge Instructions DIET: Follow Instructions for: Heart Healthy Diet, Diabetic Diet Speech Therapy-Diet Recommends: Regular Activities you can perform: Weight Bearing as Estefania Activities to Avoid: Prolonged Standing, Strenuous Activity Follow up Referrals: PCP Follow-up - 07/12/17 with [facility] - 2-3 Days with Ellis Fang MD New Medications: Prednisone (Prednisone) 20 Mg Tab 20 MG PO DIRECTED for COPD for 5 Days, TAB 0 Refills Take 60 MG daily x 4 days, then 40 MG x 4 days, then 20 MG daily x 4 days. Glipizide (Glipizide) 10 Mg Tab 10 MG PO DAILYAC for DM for 30 Days, TAB Take 30 minutes before a meal Levofloxacin (Levaquin) 500 Mg Tablet 500 MG PO DAILY for PNA for 2 Days, #2 TAB [Albuterol-Ipratropium Neb] () 1 AMPULE NEBU 1 AMPULE NEB Q4HR WHILE AWAKE NEB for COPD Continued Medications: Budesonide-Formoterol Inh (Symbicort Inh) 160-4.5 Mcg/Act Aero 1 PUFF INH Q12HR, #1 INHALER 0 Refills Calcium Carbonate-Cholecalciferol (Calcium 500 +D) 500-400 Mg-Unit Tab 1 TAB PO TID for Calcium Supplement, TAB 0 Refills Ferrous Sulfate (Ferrous Sulfate) 325 Mg (65 Mg Iron) Tablet 325 MG PO TIDPC for Nutritional Supplement, #90 TAB 0 Refills Ipratropium-Albuterol Neb (Duoneb) 0.5-2.5 Mg/3 Ml Neb 1 NEBULE INH Q6HR NEB for Breathing Treatment, #120 NEBULE 0 Refills Multivitamin (Wfk-Ecaqun-Tqdod) 1 Each Tablet Omeprazole (Omeprazole) 20 Mg Tab 20 MG PO DAILY, #30 TAB 0 Refills Oxygen (O2) (Oxygen (O2)) Device LITER MINDY.CANULA CONTINUOUS for Prevent Hypoxemia, #2 Oxygen Concentrator Portable Gaseous 2 L/min via Nasal Canula Continuous For 99 months Simvastatin (Simvastatin) 40 Mg Tab 40 MG PO HS for Cholesterol Management, #30 TAB 0 Refills Discontinued Medications: Prednisone (Prednisone) 5 Mg Tab 5 MG PO DAILY, TAB 0 Refills Lukas Briceno MD Jul 11, 2017 14:38
[2017-07-11] MEDS ORDERED: LEVOFLOXACIN 500 MG TAB PO SCH (17:00)
[2017-07-12] MEDS ORDERED: glipiZIDE 10 MG TAB PO SCH (08:00)
== END 2017-07-11 16:40 | DRG 291 ==
LOC: NEPE 21:23 → NEDA 23:33 → NEDH 07-08 04:15 → N04B 07-08 10:57
PROVIDERS: ADMIT Internal Medicine; ATTEND Internal Medicine
PROC: 5A09357 Assistance with Respiratory Ventilation, Less than 24 Consecutive Hours, Continuous Positive Airway Pressure (ICD-10-PCS; principal; 2017-07-07)
DX: I11.0 Hypertensive heart disease with heart failure (principal); J18.9 Pneumonia, unspecified organism; J96.21 Acute and chronic respiratory failure with hypoxia; J44.0 Chronic obstructive pulmonary disease with (acute) lower respiratory infection; I50.33 Acute on chronic diastolic (congestive) heart failure; F03.90 Unspecified dementia, unspecified severity, without behavioral disturbance, psychotic disturbance, mood disturbance, and anxiety; I27.20 Pulmonary hypertension, unspecified; E11.9 Type 2 diabetes mellitus without complications; I25.10 Atherosclerotic heart disease of native coronary artery without angina pectoris; K21.9 Gastro-esophageal reflux disease without esophagitis; I45.10 Unspecified right bundle-branch block; M19.90 Unspecified osteoarthritis, unspecified site; F79 Unspecified intellectual disabilities; Z79.84 Long term (current) use of oral hypoglycemic drugs; Z88.1 Allergy status to other antibiotic agents; Z96.649 Presence of unspecified artificial hip joint; Z99.81 Dependence on supplemental oxygen
CPT/HCPCS: 36600; 51702; 71045; 71046; 80053; 81001; 82247; 82550; 82552; 82565; 82805; 82948; 83605; 83880; 84145; 84484; 85025; 85610; 85652; 85730; 86140; 87040; 94002; 94003; 94640; 94664; 96365; 96375; J1644; J1815; J1940; J1956; J2920; J2930; J7512

== ENCOUNTER 2017-12-03 15:31 | Inpatient (IN) ==
[2017-12-03] MEDS ORDERED: MethylPREDNISolone Sod Succinate Inj 125 MG/2 ML Vial IV.PUSH ONE (16:06)
--- NOTE | 2017-12-03 16:15 | ED ---
HPI General Chief Complaint: Shortness of Breath/Dyspnea Stated Complaint: SOB/Coughing/CHF/COPD Time Seen by Provider: 12/03/17 16:01 History of Present Illness This patient complains of shortness of breath. Her symptoms are severe. Duration is 2 days. She tried nebulizer and it did not help. She is on oxygen at night at the assisted living facility. No alleviating factors. No exacerbating factors. She has COPD and CHF. She no longer smokes. She has chronic leg edema on diuretics. Not having chest pain or fever. She does have cough and congestion. Related Data Home Medications Medication Instructions Recorded Confirmed budesonide-formoterol [Symbicort] 2 puff INHALATION BID 12/03/17 12/03/17 calcitonin (salmon) 1 spray INTRANASAL (ALT) DAILY 12/03/17 12/03/17 calcium carbonate [Calcium 500] 500 mg PO TID 12/03/17 12/03/17 ferrous sulfate 325 mg PO TID 12/03/17 12/03/17 fluticasone-salmeterol [Advair 1 inh INHALATION BID 12/03/17 12/03/17 Diskus] furosemide 20 mg PO DAILY 12/03/17 12/03/17 furosemide 40 mg PO HS 12/03/17 12/03/17 glipizide 5 mg PO DAILY 12/03/17 12/03/17 ipratropium-albuterol 3 ml INHALATION QID 12/03/17 12/03/17 multivitamin 1 tab PO DAILY 12/03/17 12/03/17 omeprazole 20 mg PO DAILY 12/03/17 12/03/17 potassium chloride 10 meq PO DAILY 12/03/17 12/03/17 prednisone 5 mg PO DAILY 12/03/17 12/03/17 repaglinide 1 mg PO TID 12/03/17 12/03/17 simvastatin 40 mg PO HS 12/03/17 12/03/17 Allergies Allergy/AdvReac Type Severity Reaction Status Date / Time cephalexin Allergy Intermediate Anaphylaxis Unverified 12/03/17 16:10 Review of Systems ROS: all other systems reviewed are negative [facility] Medical History Medical History CHF (congestive heart failure) (Acute) COPD (chronic obstructive pulmonary disease) (Acute) Diabetes (Acute) FH: bilateral hip replacements (Acute) GERD (gastroesophageal reflux disease) (Acute) Hypertension (Acute) Rheumatoid arthritis (Acute) Surgical History Surgical History H/O elbow surgery (Acute) Social History Social History Substance History: No History of Abuse Smoking Status: Never smoker How Often Do You Have a Drink Containing Alcohol: Never Recent Travel in [facility] within the Last 8 Weeks: No Recent Out of Country Travel within the Last 8 Weeks: No Exam Narrative Exam Narrative: GENERAL: Well-nourished, well-developed patient in no apparent distress. SKIN: Focused skin assessment reveals no rash and nodules. Skin is Warm and dry. HEAD: Atraumatic. Normocephalic. EYES: Pupils equal and round. No scleral icterus. No injection or drainage. ENT: No nasal bleeding or discharge. Mucous membranes pink and moist. NECK: Trachea midline. No JVD. CARDIOVASCULAR: Regular rate and rhythm. No murmur appreciated. RESPIRATORY: Positive accessory muscle use. Diffuse expiratory wheezing and rhonchi. Breath sounds equal bilaterally. GASTROINTESTINAL: Abdomen soft, non-tender, nondistended. Hepatic and splenic margins not palpable. MUSCULOSKELETAL: No obvious deformities. No clubbing. No cyanosis. Symmetric edema from the knees down NEUROLOGICAL: Awake and alert. No obvious cranial nerve deficits. Motor grossly within normal limits. Normal speech. PSYCHIATRIC: Appropriate mood and affect; insight and judgment normal. Course Initial Documented Vital Signs Temperature 99 F 12/03/17 15:43 Pulse Rate 120 H 12/03/17 15:43 Respiratory Rate 30 H 12/03/17 15:43 Blood Pressure 146/63 H 12/03/17 15:43 Pulse Oximetry 94 L 12/03/17 15:43 Last Documented Vital Signs Temperature 99 F 12/03/17 15:43 Pulse Rate 113 H 12/03/17 16:55 Respiratory Rate 26 H 12/03/17 16:55 Blood Pressure 134/64 12/03/17 16:10 Pulse Oximetry 100 12/03/17 16:56 Critical Care Time Critical Care Time: Yes Total Critical Care Time: 40 Attestation: Aggregate critical care time was 40 minutes. Time to perform other separately billable procedures was not included in the critical care time. My time did not include minutes spent treating any other patients simultaneously or on activities that did not directly contribute to the patient's treatment. The services I provided to this patient were to treat and/or prevent clinically significant deterioration that could result in: Cardiopulmonary arrest, hypoxemic brain injury, respiratory collapse, aspiration I provided critical care services requiring my management, as noted below: Chart data review, documentation time, medication orders and management, vital sign assessments/reviewing monitor data, ordering and reviewing lab tests, ordering and interpreting/reviewing x-rays and diagnostic studies, care of the patient and discussion of the patient with the admitting physicians. Medical Decision Making MDM Narrative Medical decision making narrative: IV placed and labs sent. I gave her a series of 3 nebulizer treatments. I gave her IV Solu-Medrol. She is critically ill. She is in respiratory distress. After extensive resuscitation regarding multiple nebulizers and IV steroids and oxygen she is significantly improved. She is still wheezing and short of breath and will require hospitalization but I think no longer critically ill. She required multiple rechecks and some close care for a while there. At this point were going to make her in observation for acute exacerbation of chronic COPD. The chest x-ray suggests a small left base infiltrate. I have reviewed this with the hospitalist. She has no leukocytosis. Metabolic studies show hyperglycemia otherwise normal. Medical Screen Exam Complete: Yes Emergency Medical Condition: Yes Differential Diagnosis Differential Diagnosis: Differential diagnosis includes COPD, asthma, pneumonia , bronchitis, PE. Medical Records Medical records reviewed: Yes I reviewed the patient's medical records. Lab Data Lab results reviewed: Yes I reviewed the patient's lab results. Result diagrams: 12/03/17 16:45 12/03/17 16:45 Lab Results 12/03/17 12/03/17 Range/Units 16:45 16:45 WBC 10.9 (4.0-11.0) th/mm3 RBC 3.30 L (4.00-5.30) mil/mm3 Hgb 10.9 L (11.6-15.3) gm/dL Hct 31.9 L (35.0-46.0) % MCV 96.6 (80.0-100.0) fL MCH 33.1 (27.0-34.0) pg MCHC 34.3 (32.0-36.0) % RDW 14.4 (11.6-17.2) % Plt Count 189 (150-450) th/mm3 MPV 9.5 (7.0-11.0) fL Neut % (Auto) 88.3 H (16.0-70.0) % Lymph % (Auto) 3.8 L (9.0-44.0) % [place] % (Auto) 7.7 (0.0-8.0) % Eos % (Auto) 0.0 (0.0-4.0) % Baso % (Auto) 0.2 (0.0-2.0) % Neut # (Auto) 9.6 H (1.8-7.7) th/mm3 Lymph # (Auto) 0.4 L (1.0-4.8) th/mm3 [place] # (Auto) 0.8 (0.0-0.9) th/mm3 Eos # (Auto) 0.0 (0.0-0.4) th/mm3 Baso # (Auto) 0.0 (0.0-0.2) th/mm3 WBC Differential . Differential Comment Auto diff final Sodium 136 (136-145) meq/L Potassium 4.7 (3.5-5.1) meq/L Chloride 96 L (98-107) meq/L Carbon Dioxide 31.6 (21.0-32.0) meq/L Anion Gap 8 (5-15) meq/L BUN 16 (7-18) mg/dL Creatinine 0.99 (0.50-1.00) mg/dL Estimated GFR 54 L (>89) mL/min Random Glucose 263 H (74-106) mg/dL Calcium 8.6 (8.5-10.1) mg/dL Total Bilirubin 0.4 (0.2-1.0) mg/dL AST 31 (15-37) U/L ALT 44 (10-53) U/L Alkaline Phosphatase 98 (45-117) U/L Total Protein 6.9 (6.4-8.2) g/dL Albumin 2.8 L (3.4-5.0) g/dL Imaging Data Attestation: I personally reviewed and interpreted this imaging study as follows : Radiologist's impression: Chest X-Ray 12/03/17 16:09 CONCLUSION: 1. Left lower lobe infiltrate. 2. Chronic interstitial fibrotic change. 3. Cardiomegaly. Discharge Plan Discharge Disposition Patient Disposition: 30 Still Patient Discharge Details Diagnosis: Acute exacerbation of chronic obstructive airways disease Physicians Team ED Provider: Mikhail Biggs Primary Care Provider: Chaitanya Cardenas Rxs /Orders / Referrals /Forms Prescriptions: No Action multivitamin Tablet 1 tab PO DAILY RF: 0 simvastatin 40 mg Tablet 40 mg PO HS RF: 0 calcium carbonate [Calcium 500] 500 mg calcium (1,250 mg) Tablet 500 mg PO TID RF: 0 calcitonin (salmon) 200 unit/actuation [place],Non-Aerosol 1 spray INTRANASAL (ALT) DAILY RF: 0 glipizide 5 mg Tablet 5 mg PO DAILY RF: 0 furosemide 20 mg Tablet 40 mg PO HS RF: 0 budesonide-formoterol [Symbicort] 160-4.5 mcg/actuation Hfa Aerosol Inhaler 2 puff INHALATION BID RF: 0 furosemide 20 mg Tablet 20 mg PO DAILY RF: 0 fluticasone-salmeterol [Advair Diskus] 250-50 mcg/dose Blister With Device 1 inh INHALATION BID RF: 0 potassium chloride 10 mEq Capsule, Extended Release 10 meq PO DAILY RF: 0 ipratropium-albuterol 0.5 mg-3 mg(2.5 mg base)/3 mL Solution For Nebulization 3 ml INHALATION QID RF: 0 prednisone 5 mg Tablet 5 mg PO DAILY RF: 0 ferrous sulfate 325 mg (65 mg iron) Tablet 325 mg PO TID RF: 0 omeprazole 20 mg Capsule,Delayed Release(Dr/Ec) 20 mg PO DAILY RF: 0 repaglinide 1 mg Tablet 1 mg PO TID RF: 0 Discharge Interventions Interventions: Vital Signs Last Done: 12/03/17 16:10 Status ED Status: Admitted Observation Patient
[2017-12-03 17:09] LABS: Baso % (Auto) 0.2 % (0.0-2.0); Hematocrit 31.9 % (35.0-46.0); Hemoglobin 10.9 gm/dL (11.6-15.3); Lymph # (Auto) 0.4 th/mm3 (1.0-4.8); Lymph % (Auto) 3.8 % (9.0-44.0); Mean Corpuscular HGB Conc 34.3 % (32.0-36.0); Mean Corpuscular Hemoglobin 33.1 pg (27.0-34.0); Mean Corpuscular Volume 96.6 fL (80.0-100.0); Mean Platelet Volume 9.5 fL (7.0-11.0); Mono # (Auto) 0.8 th/mm3 (0.0-0.9); Mono % (Auto) 7.7 % (0.0-8.0); Neut # (Auto) 9.6 th/mm3 (1.8-7.7); Neut % (Auto) 88.3 % (16.0-70.0); Platelet Count 189 th/mm3 (150-450); Red Cell Distribution Width 14.4 % (11.6-17.2); White Blood Count 10.9 th/mm3 (4.0-11.0)
[2017-12-03 17:24] LABS: Alkaline Phosphatase 98 U/L (45-117); Total Protein 6.9 g/dL (6.4-8.2)
[2017-12-03 17:37] LABS: Alanine Aminotransferase 44 U/L (10-53); Albumin 2.8 g/dL (3.4-5.0); Anion Gap 8 meq/L (5-15); Aspartate Aminotransferase 31 U/L (15-37); Blood Urea Nitrogen 16 mg/dL (7-18); Calcium 8.6 mg/dL (8.5-10.1); Carbon Dioxide 31.6 meq/L (21.0-32.0); Chloride 96 meq/L (98-107); Glomerular Filtration Rate 54 mL/min (>89); Glucose,Random 263 mg/dL (74-106); Potassium 4.7 meq/L (3.5-5.1); Sodium 136 meq/L (136-145)
[2017-12-03] MEDS ORDERED: Bisacodyl 10 MG Supp RECTAL PRN (18:27)
[2017-12-03] MEDS ORDERED: Acetaminophen 325 MG Tablet PO PRN (18:27)
[2017-12-03] MEDS ORDERED: Dextrose 50% in Water 50 ML Vial IV.PUSH PRN (19:19)
[2017-12-03] MEDS ORDERED: Budesonide-Formoterol 160/4.5 MCG 6 GM Inhaler INH SCH (21:00)
[2017-12-03] MEDS: Furosemide 20 MG Tablet PO SCH (21:46)
[2017-12-03] MEDS: Enoxaparin Inj 30 MG/0.3 ML Syringe SQ SCH (21:46)
[2017-12-03] MEDS: Budesonide-Formoterol 160/4.5 MCG 6 GM Inhaler INH SCH (21:50)
[2017-12-03] MEDS: MethylPREDNISolone Sod Succinate Inj 125 MG/2 ML Vial IV.PUSH SCH (22:01)
[2017-12-03] MEDS: Insulin NovoLOG Aspart Correctional Sugar Inj SQ SCH (22:05)
[2017-12-04] MEDS: MethylPREDNISolone Sod Succinate Inj 125 MG/2 ML Vial IV.PUSH SCH ×5 (06:00→22:15)
[2017-12-04 06:10] LABS: Hematocrit 34.4 % (35.0-46.0); Hemoglobin 11.2 gm/dL (11.6-15.3); Lymph # (Auto) 0.2 th/mm3 (1.0-4.8); Lymph % (Auto) 3.7 % (9.0-44.0); Mean Corpuscular HGB Conc 32.5 % (32.0-36.0); Mean Corpuscular Volume 98.5 fL (80.0-100.0); Mean Platelet Volume 9.1 fL (7.0-11.0); Mono # (Auto) 0.1 th/mm3 (0.0-0.9); Mono % (Auto) 1.4 % (0.0-8.0); Neut # (Auto) 6.4 th/mm3 (1.8-7.7); Neut % (Auto) 94.9 % (16.0-70.0); Platelet Count 171 th/mm3 (150-450); Red Cell Distribution Width 14.3 % (11.6-17.2); White Blood Count 6.7 th/mm3 (4.0-11.0)
[2017-12-04 06:33] LABS: Calcium 9.1 mg/dL (8.5-10.1); Carbon Dioxide 31.3 meq/L (21.0-32.0); Potassium 4.2 meq/L (3.5-5.1)
[2017-12-04] MEDS: Ferrous Sulfate 325 MG Tablet PO SCH ×4 (09:41→18:48)
[2017-12-04] MEDS: Potassium Chloride 10 MEQ ER Capsule PO SCH ×2 (09:42→10:27)
[2017-12-04] MEDS: Calcium Carbonate 500 MG Tablet PO SCH ×4 (09:42→18:48)
[2017-12-04] MEDS: Furosemide 20 MG Tablet PO SCH ×3 (09:42→21:42)
[2017-12-04] MEDS: Pantoprazole Sodium 20 MG DR Tablet PO SCH ×2 (09:42→10:27)
[2017-12-04] MEDS: Insulin NovoLOG Aspart Correctional Sugar Inj SQ SCH ×4 (10:25→21:56)
[2017-12-04] MEDS: Budesonide-Formoterol 160/4.5 MCG 6 GM Inhaler INH SCH ×2 (10:28→21:41)
[2017-12-04 14:49] LABS: ABG Base Excess 4.8 mmol/L (-2-2); ABG PCO2 51 mmHg (38-42); ABG PO2 104 mmHg (61-120)
[2017-12-04] MEDS: Tiotropium Bromide 18 MCG/ACT Inhaler INH SCH (18:47)
[2017-12-04] MEDS: guaiFENesin 600 MG ER Tablet PO SCH ×2 (18:47→21:57)
--- NOTE | 2017-12-04 20:39 | ECG ---
Date Performed: 12/03/2017 Time Performed: 17:37:24 PTAGE: 82 years EKG: SINUS TACHYCARDIA POSSIBLE LEFT ATRIAL ENLARGEMENT INDETERMINATE AXIS RIGHT BUNDLE BRANCH B LOCK INDETERMINATE AXIS ABNORMAL ECG PREVIOUS TRACING : 03/18/2017 22.06 Compared to previous tracing, the sinus tachycardia is new. The anterior ST-T wave changes are new. These may simply be rate related Clinical correlation is rec ommended. DOCTOR: Leia Moore Interpretating Date/Time 12/04/2017 20:38:16
[2017-12-04] MEDS: Enoxaparin Inj 30 MG/0.3 ML Syringe SQ SCH (21:42)
[2017-12-05] MEDS: MethylPREDNISolone Sod Succinate Inj 125 MG/2 ML Vial IV.PUSH SCH ×4 (05:59→21:59)
[2017-12-05] MEDS: Budesonide-Formoterol 160/4.5 MCG 6 GM Inhaler INH SCH ×2 (08:51→21:59)
[2017-12-05] MEDS: Tiotropium Bromide 18 MCG/ACT Inhaler INH SCH (08:51)
[2017-12-05] MEDS: Insulin NovoLOG Aspart Correctional Sugar Inj SQ SCH ×4 (08:53→22:02)
[2017-12-05] MEDS: Potassium Chloride 10 MEQ ER Capsule PO SCH (08:53)
[2017-12-05] MEDS: Ferrous Sulfate 325 MG Tablet PO SCH ×3 (08:53→17:27)
[2017-12-05] MEDS: Furosemide 20 MG Tablet PO SCH ×2 (08:54→21:58)
[2017-12-05] MEDS: guaiFENesin 600 MG ER Tablet PO SCH ×2 (08:54→21:59)
[2017-12-05] MEDS: Pantoprazole Sodium 20 MG DR Tablet PO SCH (08:54)
[2017-12-05] MEDS: Calcium Carbonate 500 MG Tablet PO SCH ×3 (08:54→17:27)
[2017-12-05] MEDS: Insulin Detemir Inj 1,000 UNIT/10 ML Vial SQ SCH ×2 (12:11→22:01)
[2017-12-05] MEDS: Enoxaparin Inj 30 MG/0.3 ML Syringe SQ SCH (21:58)
[2017-12-06] MEDS: MethylPREDNISolone Sod Succinate Inj 125 MG/2 ML Vial IV.PUSH SCH ×2 (05:34→12:24)
[2017-12-06 07:15] LABS: Hematocrit 32.4 % (35.0-46.0); Hemoglobin 10.6 gm/dL (11.6-15.3); Lymph # (Auto) 0.3 th/mm3 (1.0-4.8); Lymph % (Auto) 2.6 % (9.0-44.0); Mean Corpuscular HGB Conc 32.8 % (32.0-36.0); Mean Corpuscular Hemoglobin 31.6 pg (27.0-34.0); Mean Corpuscular Volume 96.4 fL (80.0-100.0); Mean Platelet Volume 8.9 fL (7.0-11.0); Mono # (Auto) 0.4 th/mm3 (0.0-0.9); Mono % (Auto) 3.7 % (0.0-8.0); Neut # (Auto) 10.6 th/mm3 (1.8-7.7); Neut % (Auto) 93.7 % (16.0-70.0); Platelet Count 190 th/mm3 (150-450); Red Blood Count 3.36 mil/mm3 (4.00-5.30); Red Cell Distribution Width 13.9 % (11.6-17.2); White Blood Count 11.3 th/mm3 (4.0-11.0)
[2017-12-06 07:52] LABS: Albumin 2.4 g/dL (3.4-5.0); Calcium 8.6 mg/dL (8.5-10.1); Carbon Dioxide 31.8 meq/L (21.0-32.0); Potassium 3.7 meq/L (3.5-5.1)
[2017-12-06] MEDS: Potassium Chloride 10 MEQ ER Capsule PO SCH (09:06)
[2017-12-06] MEDS: Ferrous Sulfate 325 MG Tablet PO SCH ×3 (09:06→17:23)
[2017-12-06] MEDS: Calcium Carbonate 500 MG Tablet PO SCH ×3 (09:06→17:23)
[2017-12-06] MEDS: Pantoprazole Sodium 20 MG DR Tablet PO SCH (09:06)
[2017-12-06] MEDS: guaiFENesin 600 MG ER Tablet PO SCH ×2 (09:07→20:32)
[2017-12-06] MEDS: Furosemide 20 MG Tablet PO SCH ×2 (09:07→20:32)
[2017-12-06] MEDS: Insulin Detemir Inj 1,000 UNIT/10 ML Vial SQ SCH ×2 (09:07→20:47)
[2017-12-06] MEDS: Insulin NovoLOG Aspart Correctional Sugar Inj SQ SCH ×4 (09:07→20:47)
[2017-12-06] MEDS: Budesonide-Formoterol 160/4.5 MCG 6 GM Inhaler INH SCH ×2 (09:08→20:53)
[2017-12-06] MEDS: Tiotropium Bromide 18 MCG/ACT Inhaler INH SCH (09:08)
[2017-12-06] MEDS ORDERED: Sodium Chloride 0.45 % Inj 500 ML IV.SIG ONE (11:27)
[2017-12-06] MEDS: predniSONE 10 MG Tablet PO SCH ×2 (13:02→20:32)
[2017-12-06] MEDS: Enoxaparin Inj 30 MG/0.3 ML Syringe SQ SCH (20:33)
[2017-12-07 07:11] LABS: Hematocrit 34.6 % (35.0-46.0); Hemoglobin 11.6 gm/dL (11.6-15.3); Lymph # (Auto) 0.4 th/mm3 (1.0-4.8); Lymph % (Auto) 3.8 % (9.0-44.0); Mean Corpuscular HGB Conc 33.6 % (32.0-36.0); Mean Corpuscular Hemoglobin 32.2 pg (27.0-34.0); Mean Corpuscular Volume 95.8 fL (80.0-100.0); Mean Platelet Volume 9.2 fL (7.0-11.0); Mono # (Auto) 0.7 th/mm3 (0.0-0.9); Mono % (Auto) 6.5 % (0.0-8.0); Neut # (Auto) 9.9 th/mm3 (1.8-7.7); Neut % (Auto) 89.7 % (16.0-70.0); Platelet Count 194 th/mm3 (150-450); Red Blood Count 3.62 mil/mm3 (4.00-5.30); Red Cell Distribution Width 13.7 % (11.6-17.2)
[2017-12-07 07:28] LABS: Albumin 2.5 g/dL (3.4-5.0); Calcium 9.1 mg/dL (8.5-10.1); Carbon Dioxide 34.9 meq/L (21.0-32.0); Phosphorus 3.8 mg/dL (2.5-4.9); Potassium 3.8 meq/L (3.5-5.1)
[2017-12-07] MEDS: Insulin Detemir Inj 1,000 UNIT/10 ML Vial SQ SCH ×2 (08:27→20:14)
[2017-12-07] MEDS: Ferrous Sulfate 325 MG Tablet PO SCH ×3 (08:30→17:05)
[2017-12-07] MEDS: Furosemide 20 MG Tablet PO SCH (08:30)
[2017-12-07] MEDS: Potassium Chloride 10 MEQ ER Capsule PO SCH (08:30)
[2017-12-07] MEDS: Pantoprazole Sodium 20 MG DR Tablet PO SCH (08:30)
[2017-12-07] MEDS: Budesonide-Formoterol 160/4.5 MCG 6 GM Inhaler INH SCH ×2 (08:30→20:13)
[2017-12-07] MEDS: guaiFENesin 600 MG ER Tablet PO SCH ×2 (08:30→20:08)
[2017-12-07] MEDS: Calcium Carbonate 500 MG Tablet PO SCH ×3 (08:30→17:05)
[2017-12-07] MEDS: predniSONE 10 MG Tablet PO SCH ×2 (08:30→20:08)
[2017-12-07] MEDS: Tiotropium Bromide 18 MCG/ACT Inhaler INH SCH (08:30)
[2017-12-07] MEDS: Insulin NovoLOG Aspart Correctional Sugar Inj SQ SCH ×4 (08:31→20:14)
[2017-12-07 08:47] LABS: Lymphocytes 2 % (9-44); Metamyelocytes 1 % (0-1); Monocytes 2 % (0-8); Myelocytes 1 % (0-0); Platelet Estimate Normal (Normal); Platelet Morphology Normal (Normal); Tallied Nucleated RBC 1 (0-0)
[2017-12-07 08:48] LABS: Toxic Vacuolation Present
[2017-12-07] MEDS ORDERED: Sodium Chlor 0.9% Inj 250 ML IV.SIG SCH (10:00)
[2017-12-07] MEDS ORDERED: Furosemide 20 MG Tablet PO SCH (18:00)
[2017-12-07] MEDS: Enoxaparin Inj 30 MG/0.3 ML Syringe SQ SCH (20:09)
[2017-12-07] MEDS ORDERED: levoFLOXacin 750 MG Tablet PO SCH (22:00)
[2017-12-08] MEDS: Insulin NovoLOG Aspart Correctional Sugar Inj SQ SCH ×2 (09:32→12:36)
[2017-12-08] MEDS: Insulin Detemir Inj 1,000 UNIT/10 ML Vial SQ SCH (09:32)
[2017-12-08] MEDS: Potassium Chloride 10 MEQ ER Capsule PO SCH (09:33)
[2017-12-08] MEDS: Calcium Carbonate 500 MG Tablet PO SCH ×2 (09:33→12:36)
[2017-12-08] MEDS: Furosemide 20 MG Tablet PO SCH (09:34)
[2017-12-08] MEDS: predniSONE 10 MG Tablet PO SCH (09:35)
[2017-12-08] MEDS: Pantoprazole Sodium 20 MG DR Tablet PO SCH (09:35)
[2017-12-08] MEDS: guaiFENesin 600 MG ER Tablet PO SCH (09:36)
[2017-12-08] MEDS: Ferrous Sulfate 325 MG Tablet PO SCH ×2 (09:36→12:36)
[2017-12-08] MEDS: Tiotropium Bromide 18 MCG/ACT Inhaler INH SCH (09:37)
[2017-12-08] MEDS: Budesonide-Formoterol 160/4.5 MCG 6 GM Inhaler INH SCH (09:38)
== END 2017-12-08 16:12 ==
LOC: NEPC 15:31 → NEDA 15:31 → OBSVTOIN 18:41 → N07 20:00
PROVIDERS: ADMIT Internal Medicine; ATTEND Internal Medicine